=== PATIENT | male | born 1960 | race Caucasian/White ===

== ENCOUNTER 2018-10-20 13:48 | Emergency (ER) | payer MEDICAID, MEDICARE, OTHER ==
[~2018-10-20] VITALS: Ht 177.8 cm; Wt 90.3 kg
--- NOTE | 2018-10-20 14:21 | ED Neurological Problem ---
General Stated Complaint: AMS Source: patient, family, EMS Exam Limitations: clinical condition History of Present Illness Date Seen by Provider: Oct 20, 2018 Time Seen by Provider: 14:16 Initial Comments This 58-year-old white male presents with confusion following a probable seizure. The patient has a history of lifelong seizures following sustained high fevers from the [place] flu as a child. The patient and his relate that they believe he has been compliant on his seizure medication. They deny associated head injury, headache, stiff neck, photophobia, or fever. The patient has had multiple breakthrough seizures in the past. He is on phenobarbital and Dilantin. The is concerned because the patient is more ataxic than normal in his postictal state. Allergies and Home Medications Allergies Coded Allergies: bupropion (Verified Allergy, Severe, seizure, 10/20/18) acetaminophen (Verified Adverse Reaction, Severe, seizure, 10/20/18) escitalopram (Verified Adverse Reaction, Severe, seizure, 10/20/18) oxycodone (Verified Adverse Reaction, Severe, seizure, 10/20/18) tramadol (Verified Adverse Reaction, Severe, seizure, 10/20/18) Home Medications Diazepam 5 Mg/1 Ml Oral.conc, 5 MG PRN, (Reported) Phenobarbital 97.2 Mg Tablet, 97.2 MG BID, (Reported) Phenytoin Sodium Extended 100 Mg Capsule, 300 MG DAILY, (Reported) Phenytoin Sodium Extended 30 Mg Capsule, 30 MG DAILY, (Reported) Tiagabine HCl 12 Mg Tablet, 12 MG TID, (Reported) Patient Home Medication List Home Medication List Reviewed: Yes Review of Systems Review of Systems Constitutional: No chills, No dizziness; weakness Eyes: Denies Blurred Vision, Denies Photophobia Ears, Nose, Mouth, Throat: denies ear pain, denies epistaxis, denies mouth pain Respiratory: No cough, No short of breath Cardiovascular: No chest pain, No palpitations Gastrointestinal: No abdominal pain, No diarrhea, No nausea, No vomiting Genitourinary: No dysuria, No frequency Musculoskeletal: No back pain, No joint pain Skin: No rash Psychiatric/Neurological: See HPI, Tonic Clonic Seizures Endocrine: No Symptoms Reported Hematologic/Lymphatic: No Symptoms Reported Past Xspcnpd-Iqptdb-Dtxttk Hx Past Med/Social Hx: Reviewed Nursing Past Med/Soc Hx Patient Social History Recent Foreign Travel: No Contact w/Someone Who Travel: No Physical Exam Vital Signs Vital Signs - First Documented 10/20/18 13:49 Temp 98.3 Pulse 68 Resp 18 B/P (MAP) 116/70 (85) Pulse Ox 98 O2 Delivery Room Air Capillary Refill : Height, Weight, BMI Height: '" Weight: lbs. oz. kg; BMI Method: General Appearance: other (the patient appears postictal.) HEENT: normal ENT inspection Neck: normal inspection Respiratory: lungs clear Cardiovascular: regular rate, rhythm Gastrointestinal: normal bowel sounds, non tender, soft Back: normal inspection Neurologic/Psychiatric: no motor/sensory deficits, other (the patient is slow to respond but accurate. His eyes have a poorly fixed nystatin this. He has twitching of his eyelids and right hands suggestive of a postictal state.) Crainal Nerves: normal hearing, normal speech Motor/Sensory: no motor deficit, no sensory deficit Skin: warm/dry; No rash Progress/Results/Core Measures Results/Orders Lab Results Laboratory Tests Test 10/20/18 00:00 10/20/18 14:15 Range/Units White Blood Count 8.4 4.3-11.0 10^3/uL Red Blood Count 4.36 4.35-5.85 10^6/uL Hemoglobin 13.6 13.3-17.7 G/DL Hematocrit 41 40-54 % Mean Corpuscular Volume 94 80-99 FL Mean Corpuscular Hemoglobin 31 25-34 PG Mean Corpuscular Hemoglobin Concent 33 32-36 G/DL Red Cell Distribution Width 13.5 10.0-14.5 % Platelet Count 303 130-400 10^3/uL Mean Platelet Volume 10.0 7.4-10.4 FL Neutrophils (%) (Auto) 68 42-75 % Lymphocytes (%) (Auto) 19 12-44 % Monocytes (%) (Auto) 11 0-12 % Eosinophils (%) (Auto) 2 0-10 % Basophils (%) (Auto) 0 0-10 % Neutrophils # (Auto) 5.8 1.8-7.8 X 10^3 Lymphocytes # (Auto) 1.6 1.0-4.0 X 10^3 Monocytes # (Auto) 0.9 0.0-1.0 X 10^3 Eosinophils # (Auto) 0.2 0.0-0.3 10^3/uL Basophils # (Auto) 0.0 0.0-0.1 10^3/uL Urine Color YELLOW Urine Clarity CLEAR Urine pH 8.0 5-9 Urine Specific [place] 1.010 L 1.016-1.022 Urine Protein NEGATIVE NEGATIVE Urine Glucose (UA) NEGATIVE NEGATIVE Urine Ketones NEGATIVE NEGATIVE Urine Nitrite NEGATIVE NEGATIVE Urine Bilirubin NEGATIVE NEGATIVE Urine Urobilinogen 0.2 NORMAL MG/DL Urine Leukocyte Esterase NEGATIVE NEGATIVE Urine RBC (Auto) NEGATIVE NEGATIVE Urine RBC NONE /HPF Urine WBC NONE /HPF Urine Squamous Epithelial Cells RARE /HPF Urine Crystals NONE /LPF Urine Bacteria NONE /HPF Urine Casts NONE /LPF Urine Mucus NEGATIVE /LPF Urine Culture Indicated NO Sodium Level 141 135-145 MMOL/L Potassium Level 4.6 3.6-5.0 MMOL/L Chloride Level 105 98-107 MMOL/L Carbon Dioxide Level 32 21-32 MMOL/L Anion Gap 4 L 5-14 MMOL/L Blood Urea Nitrogen 10 7-18 MG/DL Creatinine 0.76 0.60-1.30 MG/DL Estimat Glomerular Filtration Rate > 60 BUN/Creatinine Ratio 13 Glucose Level 88 70-105 MG/DL Calcium Level 8.5 8.5-10.1 MG/DL Corrected Calcium 8.5 8.5-10.1 MG/DL Total Bilirubin 0.2 0.1-1.0 MG/DL Aspartate Amino Transf (AST/SGOT) 17 5-34 U/L Alanine Aminotransferase (ALT/SGPT) 12 0-55 U/L Alkaline Phosphatase 131 40-136 U/L Total Protein 7.4 6.4-8.2 GM/DL Albumin 4.0 3.2-4.5 GM/DL Urine Opiates Screen NEGATIVE NEGATIVE Urine Oxycodone Screen NEGATIVE NEGATIVE Urine Methadone Screen NEGATIVE NEGATIVE Urine Propoxyphene Screen NEGATIVE NEGATIVE Urine Barbiturates Screen POSITIVE H NEGATIVE Ur Tricyclic Antidepressants Screen NEGATIVE NEGATIVE Urine Phencyclidine Screen NEGATIVE NEGATIVE Urine Amphetamines Screen NEGATIVE NEGATIVE Urine Methamphetamines Screen NEGATIVE NEGATIVE Urine Benzodiazepines Screen NEGATIVE NEGATIVE Urine Cocaine Screen NEGATIVE NEGATIVE Urine Cannabinoids Screen NEGATIVE NEGATIVE My Orders Orders - ELISEO CARRILLO MD Ct Head Wo (10/20/18 14:12) Phenobarbital (10/20/18 14:12) Dilantin (Phenytoin) (10/20/18 14:12) Cbc With Automated Diff (10/20/18 14:12) Comprehensive Metabolic Panel (10/20/18 14:12) Ua Culture If Indicated (10/20/18 14:12) Drug Screen Stat (Urine) (10/20/18 14:12) Ekg Tracing (10/20/18 14:12) Chest 1 View Ap/Pa Only (10/20/18 14:12) Lorazepam Tablet (Ativan Tablet) (10/20/18 14:53) Vital Signs/I&O 10/20/18 13:49 Temp 98.3 Pulse 68 Resp 18 B/P (MAP) 116/70 (85) Pulse Ox 98 O2 Delivery Room Air Progress Progress Note : Time: 16:08 Progress Note The patient's evaluation demonstrated no acute changes on his CT of the head. The patient's chest x-ray failed to demonstrate evidence of an acute infiltrate. Patient's laboratory evaluation was unremarkable. The patient's phenobarbital and Dilantin level will not be back until tomorrow. The patient' s EKG demonstrated normal sinus rhythm without acute current of injury. The patient received a milligram of Ativan early in his evaluation emergency Department as a protective agent. The patient and his were agreeable to a half loading dose of phenobarbital at home (160 mg). I asked that the patient follow up closely with his primary care physician with a telephone call the office in the morning. I invited him to return to emergency department if any further problems or questions. Initial ECG Impression Date: Oct 20, 2018 Initial ECG Impression Time: 16:10 Departure Impression Primary Impression: Seizure Disposition: 01 HOME, SELF-CARE Condition: Improved Departure-Patient Inst. Decision time for Depature: 16:10 Referrals: DARVIN PASTRANA MD Patient Instructions: Epilepsy in Adults Add. Discharge Instructions: Take 160 mg of Dilantin tonight. Close follow-up with your doctor tomorrow. Return if any problems or questions. ELISEO CARRILLO MD Oct 20, 2018 14:21
[2018-10-20 14:34] LABS: HEMATOCRIT 41 % (40-54); HEMOGLOBIN 13.6 G/DL (13.3-17.7); MEAN CORPUSCULAR HEMOGLOBIN 31 PG (25-34); MEAN CORPUSCULAR HGB CONC 33 G/DL (32-36); MEAN CORPUSCULAR VOLUME 94 FL (80-99); NEUTROPHILS % (AUTO) 68 % (42-75); PLATELET COUNT 303 10^3/uL (130-400); RED CELL DISTRIBUTION WIDTH 13.5 % (10.0-14.5); WHITE BLOOD COUNT 8.4 10^3/uL (4.3-11.0)
[2018-10-20 14:35] LABS: BASOPHILS % (AUTO) 0 % (0-10); EOSINOPHILS # (AUTO) 0.2 10^3/uL (0.0-0.3); EOSINOPHILS % (AUTO) 2 % (0-10); LYMPHOCYTES # (AUTO) 1.6 X 10^3 (1.0-4.0); LYMPHOCYTES % (AUTO) 19 % (12-44); MONOCYTES # (AUTO) 0.9 X 10^3 (0.0-1.0); MONOCYTES % (AUTO) 11 % (0-12); NEUTROPHILS # (AUTO) 5.8 X 10^3 (1.8-7.8)
[2018-10-20] MEDS ORDERED: LORazepam 0.5 MG (ATIVAN) TABLET PO STA (14:53)
[2018-10-20 14:57] LABS: BUN/CREATININE RATIO 13; CARBON DIOXIDE 32 MMOL/L (21-32); CHLORIDE 105 MMOL/L (98-107); CREATININE SERUM 0.76 MG/DL (0.60-1.30); GFR ESTIMATED > 60; GLUCOSE 88 MG/DL (70-105); POTASSIUM 4.6 MMOL/L (3.6-5.0); SODIUM 141 MMOL/L (135-145)
[2018-10-20 14:58] LABS: ALANINE AMINOTRANSFERASE 12 U/L (0-55); ALKALINE PHOSPHATASE 131 U/L (40-136); BILIRUBIN,TOTAL 0.2 MG/DL (0.1-1.0); CALCIUM 8.5 MG/DL (8.5-10.1); TOTAL PROTEIN 7.4 GM/DL (6.4-8.2)
--- NOTE | 2018-10-20 14:58 | Diagnostic Imaging Report ---
PROCEDURE: CT head without contrast. TECHNIQUE: Multiple contiguous axial images were obtained through the brain without the use of intravenous contrast. INDICATION: Seizure. COMPARISON: There are no prior studies available for comparison. FINDINGS: There is no mass, shift of the midline, or hemorrhage to suggest an acute intracranial abnormality. The ventricles are not abnormally dilated. There is mild cortical atrophy. The degree of atrophy is consistent with the patient's age; however, there does seem to be pronounced atrophy of both cerebellar hemispheres. This finding is of uncertain etiology. The bone windows show no sign of a fracture or of a destructive lesion. The orbits and sinuses were not visualized in their entirety. Where visualized, there is no acute abnormality. IMPRESSION: 1. There is no evidence for an acute intracranial abnormality. If clinical concern regarding an underlying abnormality persists, then MRI would be recommended for further study. 2. There does appear to be cerebellar atrophy disproportionate to the cortical atrophy. The reason for this discrepancy is not certain. 3. These results were discussed with Dr. Cho in the ER. Dictated by: Dictated on workstation # [id number]
--- NOTE | 2018-10-20 15:10 | Diagnostic Imaging Report ---
EXAMINATION: Chest one view at 02:34 p.m. INDICATION: Seizure. FINDINGS: There are no prior studies available for comparison. The heart size is within normal limits. The lungs are generally clear. There is no evidence for failure, pneumonia, or for a pleural effusion. The mediastinum is not widened. The osseous structures are intact. Healed slightly displaced fractures of the right fifth, sixth, and seventh ribs are evident. IMPRESSION: There is no evidence for an acute cardiopulmonary abnormality. Dictated by: Dictated on workstation # [id number]
[2018-10-20 15:50] LABS: BILIRUBIN,URINE NEGATIVE (NEGATIVE); CLARITY,URINE CLEAR; COLOR,URINE YELLOW; GLUCOSE, URINE (UA) NEGATIVE (NEGATIVE); KETONES,URINE NEGATIVE (NEGATIVE); LEUKOCYTE ESTERASE ,URINE NEGATIVE (NEGATIVE); NITRITE,URINE NEGATIVE (NEGATIVE); PROTEIN,URINE NEGATIVE (NEGATIVE); SQUAMOUS EPITHELIAL CELL,UR RARE /HPF; UROBILINOGEN,URINE 0.2 MG/DL (NORMAL)
[2018-10-20] MEDS ORDERED: [UNRECOGNIZED DRUG - CODE] (15:51)
[2018-10-20] MEDS ORDERED: DIAZ5ORA (15:51)
[2018-10-20] MEDS ORDERED: PHEN100C4 (15:51)
[2018-10-20] MEDS ORDERED: PHEN30CA (15:51)
[2018-10-20] MEDS ORDERED: PHEN97.2 (15:51)
[2018-10-20 16:00] LABS: BENZODIAZEPINES SCREEN URINE NEGATIVE (NEGATIVE); COCAINE SCREEN URINE NEGATIVE (NEGATIVE); METHAMPHETAMINE SCREEN URINE S NEGATIVE (NEGATIVE)
[2018-10-20 16:01] LABS: AMPHETAMINE SCREEN, URINE NEGATIVE (NEGATIVE); BARBITURATE SCREEN URINE POSITIVE (NEGATIVE); CANNABINOID SCREEN, URINE NEGATIVE (NEGATIVE); OPIATE SCREEN URINE NEGATIVE (NEGATIVE); TRICYCLIC ANTIDEPRESSANTS SCRE NEGATIVE (NEGATIVE)
[2018-10-20 16:02] LABS: METHADONE STAT NEGATIVE (NEGATIVE); OXYCODONE STAT NEGATIVE (NEGATIVE); PROPOXYPHENE STAT NEGATIVE (NEGATIVE)
[2018-10-20 16:55] VITALS: BP 114/75
== END 2018-10-20 17:00 | disposition home or self-care (01) ==
LOC: ER FS 13:51
DX: R56.9 Unspecified convulsions (principal); Z88.8 Allergy status to other drugs, medicaments and biological substances; Z88.5 Allergy status to narcotic agent; Z88.6 Allergy status to analgesic agent
CPT/HCPCS: 36415; 70450; 71045; 80053; 80184; 80185; 80306; 81000; 85025; 93005

== ENCOUNTER 2018-10-29 11:31 | Emergency (ER) | payer MEDICARE, MEDICAID ==
[~2018-10-29] VITALS: Ht 182.9 cm; Wt 90.7 kg
[~2018-10-29 11:31] MED LIST: DIAZ5ORA; PHEN100C4; PHEN30CA; PHEN97.2; [UNRECOGNIZED DRUG - CODE]
[2018-10-29] MEDS ORDERED: LORazepam INJ 2 MG/ML (ATIVAN) VIAL ONE (11:42)
[2018-10-29] MEDS ORDERED: NS IV 1000 ML 1,000 ML IV SCH (12:00)
--- NOTE | 2018-10-29 12:35 | Diagnostic Imaging Report ---
INDICATION: Fever and chills. TIME OF EXAM: 12:23 p.m. Correlation is made with prior study from 10/20/2018. The heart size is normal. There is some mild density in the left base partially obscuring the left heart border, suspicious for infiltrate. Right lung is clear. No effusion or pneumothorax is seen. IMPRESSION: Findings suspicious for patchy left basilar pneumonia. Dictated by: Dictated on workstation # [id number]
[2018-10-29] MEDS ORDERED: cefTRIAXone FOR IV USE 1,000 MG in WATER (STERILE) FOR INJECTION 10 ML IV ONE (13:15)
--- NOTE | 2018-10-29 13:15 | ED General ---
General Chief Complaint: Neurological Problems Stated Complaint: SEIZURE Nursing Triage Note: Per patient's , patient has had a low grade temperature since last night, states patient has had a cough for approx 1 week. States patient got up this morning, then took his seizure meds. At approx. 1100, patient had a grand-mal seizure lasting approx 2 minutes. Patient has a history of seizures, most recently 1 week ago. Nursing Sepsis Screen: Possible Severe Sepsis Risk History of Present Illness Date Seen by Provider: Oct 29, 2018 Time Seen by Provider: 11:35 Initial Comments Patient is a 58-year-old male who is brought to the emergency department today by ambulance for evaluation after he had a seizure at home. The patient has a lifelong history of seizures. He takes Dilantin and phenobarbital and has been medication compliant. Available history is gathered from his family member who is the bedside because the patient is postictal. She states earlier today he had some tonic-clonic activity which seemed very typical for his seizures. She reports that he normally has about 2 seizures per year when he is on his medications and they're typically precipitated by some secondary illness. Last episode was last month. He did stay in the hospital overnight and was treated for pneumonia. He was evaluated yesterday by his primary care doctor and had levels of his medications drawn at that time but these have not resulted yet. He has had no recent fever or chills but he is noted to have some persistent cough that sometimes seems wet. He underwent chest x-ray a week ago and there were no acute findings at that time. Allergies and Home Medications Allergies Coded Allergies: bupropion (Verified Allergy, Severe, seizure, 10/20/18) acetaminophen (Verified Adverse Reaction, Severe, seizure, 10/20/18) escitalopram (Verified Adverse Reaction, Severe, seizure, 10/20/18) oxycodone (Verified Adverse Reaction, Severe, seizure, 10/20/18) tramadol (Verified Adverse Reaction, Severe, seizure, 10/20/18) Home Medications Azithromycin 250 Mg Tablet, 250 MG PO DAILY Prescribed by: ANDREEA MANUEL on 10/29/18 1344 Diazepam 5 Mg/1 Ml Oral.conc, 5 MG PRN, (Reported) Diazepam 2.5 Mg Kit, 5 MG RC UD PRN for SEIZURE ACTIVITY Prescribed by: ANDREEA MANUEL on 10/29/18 1344 Phenobarbital 97.2 Mg Tablet, 97.2 MG BID, (Reported) Phenytoin Sodium Extended 100 Mg Capsule, 300 MG DAILY, (Reported) Phenytoin Sodium Extended 30 Mg Capsule, 30 MG DAILY, (Reported) Tiagabine HCl 12 Mg Tablet, 12 MG TID, (Reported) Patient Home Medication List Home Medication List Reviewed: Yes Review of Systems Review of Systems Constitutional: no symptoms reported EENTM: see HPI, no symptoms reported Respiratory: cough Cardiovascular: no symptoms reported Genitourinary: no symptoms reported Musculoskeletal: no symptoms reported Skin: no symptoms reported Psychiatric/Neurological: Seizure Past Miokwve-Gccqti-Fyqnbj Hx Patient Social History 2nd Hand Smoke Exposure: No Recent Foreign Travel: No Contact w/Someone Who Travel: No Recent Infectious Disease Expo: No Recent Hopitalizations: No Seasonal Allergies Seasonal Allergies: No Past Medical History Surgeries: No Respiratory: Yes ( influenza ) Neurological: Yes Seizure Disorder Genitourinary: No Gastrointestinal: No Musculoskeletal: No Endocrine: No HEENT: No Cancer: No Psychosocial: No Integumentary: No Blood Disorders: No Physical Exam Vital Signs Vital Signs - First Documented 10/29/18 11:40 Temp 99.2 Pulse 115 Resp 17 B/P (MAP) 145/85 (105) Pulse Ox 94 O2 Delivery Room Air Capillary Refill : Less Than 3 Seconds Height, Weight, BMI Height: 6'10.00" Weight: 200lbs. oz. 90.741332mg; BMI Method:Estimated General Appearance: No Apparent Distress, WD/WN HEENT: PERRL/EOMI, TMs Normal, Normal ENT Inspection, Pharynx Normal Neck: Full Range of Motion Respiratory: Chest Non Tender, Lungs Clear Cardiovascular: Regular Rate, Rhythm, Tachycardia Gastrointestinal: Non Tender, Soft Extremity: Normal Capillary Refill, Normal Inspection, Normal Range of Motion Neurologic/Psychiatric: Other (post-ictal during the examination) Progress/Results/Core Measures Suspected Sepsis Recent Fever Within 48 Hours: Yes Infection Criteria Present: Suspected New Infection New/Unexplained Altered Menta: Yes Sepsis Screen: Possible Severe Sepsis Risk SIRS Temperature:99.2 Pulse: 115 Respiratory Rate: 17 Laboratory Tests 10/29/18 12:30: White Blood Count 16.9H Blood Pressure 145 /85 Mean: 105 Laboratory Tests 10/29/18 12:30: Creatinine 0.80, Platelet Count 313 Results/Orders Lab Results Laboratory Tests Test 10/29/18 12:15 3/8/19 12:30 Range/Units Urine Color YELLOW Urine Clarity CLEAR Urine pH 8.0 5-9 Urine Specific [place] 1.015 L 1.016-1.022 Urine Protein NEGATIVE NEGATIVE Urine Glucose (UA) NEGATIVE NEGATIVE Urine Ketones NEGATIVE NEGATIVE Urine Nitrite NEGATIVE NEGATIVE Urine Bilirubin NEGATIVE NEGATIVE Urine Urobilinogen NORMAL NORMAL MG/DL Urine Leukocyte Esterase NEGATIVE NEGATIVE Urine RBC (Auto) NEGATIVE NEGATIVE Urine RBC NONE /HPF Urine WBC RARE /HPF Urine Squamous Epithelial Cells RARE /HPF Urine Crystals NONE /LPF Urine Bacteria TRACE /HPF Urine Casts NONE /LPF Urine Mucus SMALL H /LPF Urine Culture Indicated NO White Blood Count 16.9 H 4.3-11.0 10^3/uL Red Blood Count 4.09 L 4.35-5.85 10^6/uL Hemoglobin 12.9 L 13.3-17.7 G/DL Hematocrit 39 L 40-54 % Mean Corpuscular Volume 96 80-99 FL Mean Corpuscular Hemoglobin 32 25-34 PG Mean Corpuscular Hemoglobin Concent 33 32-36 G/DL Red Cell Distribution Width 13.5 10.0-14.5 % Platelet Count 313 130-400 10^3/uL Mean Platelet Volume 9.7 7.4-10.4 FL Neutrophils (%) (Auto) 87 H 42-75 % Lymphocytes (%) (Auto) 5 L 12-44 % Monocytes (%) (Auto) 7 0-12 % Eosinophils (%) (Auto) 0 0-10 % Basophils (%) (Auto) 0 0-10 % Neutrophils # (Auto) 14.7 H 1.8-7.8 X 10^3 Lymphocytes # (Auto) 0.9 L 1.0-4.0 X 10^3 Monocytes # (Auto) 1.2 H 0.0-1.0 X 10^3 Eosinophils # (Auto) 0.0 0.0-0.3 10^3/uL Basophils # (Auto) 0.0 0.0-0.1 10^3/uL Neutrophils % (Manual) 87 % Lymphocytes % (Manual) 4 % Monocytes % (Manual) 7 % Band Neutrophils 2 % Sodium Level 137 135-145 MMOL/L Potassium Level 4.4 3.6-5.0 MMOL/L Chloride Level 101 98-107 MMOL/L Carbon Dioxide Level 13 L 21-32 MMOL/L Anion Gap 23 H 5-14 MMOL/L Blood Urea Nitrogen 14 7-18 MG/DL Creatinine 0.80 0.60-1.30 MG/DL Estimat Glomerular Filtration Rate > 60 BUN/Creatinine Ratio 18 Glucose Level 105 70-105 MG/DL Calcium Level 8.6 8.5-10.1 MG/DL Magnesium Level 1.9 1.8-2.4 MG/DL Micro Results Microbiology 10/29/18 Influenza Types A,B Antigen (OMER) - Final, Complete My Orders Orders - ANDREEA MANUEL DO Lorazepam Injection (Ativan Injection) (10/29/18 11:42) Saline Lock/Iv-Start (10/29/18 11:54) Cbc And Manual Diff (10/29/18 11:54) Basic Metabolic Panel (10/29/18 11:54) Magnesium (10/29/18 11:54) Influenza A And B Antigens (10/29/18 11:54) Ns Iv 1000 Ml (Sodium Chloride 0.9%) (10/29/18 12:00) Chest 1 View Ap/Pa Only (10/29/18 12:02) Urinalysis (10/29/18 12:02) Ceftriaxone For Iv Use (Rocephin For I (10/29/18 13:15) Azithromycin Tablet (Zithromax Tablet) (10/29/18 13:45) Ketorolac Injection (Toradol Injection) (10/29/18 14:15) Medications Given in ED Current Medications Medications Dose Ordered Sig/Jm Route Start Time Stop Time Status Last Admin Dose Admin Azithromycin 500 mg ONCE ONCE PO 10/29/18 13:45 10/29/18 13:46 DC 10/29/18 14:42 500 MG Ceftriaxone Sodium 1000 mg/ Sterile Water 10 ml @ 200 mls/hr ONCE ONCE IV 10/29/18 13:15 10/29/18 13:17 DC 10/29/18 13:41 200 MLS/HR Ketorolac Tromethamine 30 mg ONCE ONCE IVP 10/29/18 14:15 10/29/18 14:16 DC 10/29/18 14:42 30 MG Lorazepam 2 mg STK-MED ONCE .ROUTE 10/29/18 11:42 10/29/18 11:43 DC 10/29/18 11:40 1 MG Vital Signs/I&O 3/8/19 11:40 Temp 99.2 Pulse 115 Resp 17 B/P (MAP) 145/85 (105) Pulse Ox 94 O2 Delivery Room Air Capillary Refill : Less Than 3 Seconds Blood Pressure Mean: 105 Progress Note : Time: 11:35 Progress Note Patient is seen and examined immediately on arrival to the ER. Shortly after arrival, he does begin to have some mild facial twitching around the eyes. According to his family member, this is consistent with his seizure activity at home although he does also have full tonic-clonic movements at times. Patient is currently postictal. He is protecting his airway and has normal vital signs except for mild tachycardia. He does not answer questions but he does open his eyes to verbal stimuli. He is given 1 mg of Ativan in the ER. We'll repeat chest x-ray to screen for fluids along with basic labs. We'll not repeat therapeutic drug levels today because the results will not return today and these tests were already collected yesterday by PCP and are pending. 13:00: Chest x-ray is completed. Patient has findings suspicious for left sided pneumonia. This is new when compared to x-ray completed a week earlier. He did not have a fever in the ER but did have subjective fever at home of over 100 axillary. Today, he is noted to have some leukocytosis. It is unclear if this is secondary to his infection or degranulation following seizure activity. Clinically, the patient does not appear toxic. He is dehydrated with an elevated anion gap. His heart rate was mildly tachycardic on arrival but is responsive to IV fluids. Plan is to complete IV fluids in the ER and they are running slowly due to a small and tenuous IV access. The patient is difficult in this regard. He is given 1 g of Rocephin in the ER. 30 mg of Toradol for comfort and fever, and will be given the first dose of azithromycin. Anticipation is for discharge to home following these interventions with completion of Z-Henry. Levaquin is another consideration for this patient but he is a poor candidate for this medication due to his seizure history. Diagnostic Imaging Diagonstic Imaging: Xray Plain Films/CT/US/NM/MRI: chest Comments INDICATION: Fever and chills. TIME OF EXAM: 12:23 p.m. Correlation is made with prior study from 10/20/2018. The heart size is normal. There is some mild density in the left base partially obscuring the left heart border, suspicious for infiltrate. Right lung is clear. No effusion or pneumothorax is seen. IMPRESSION: Findings suspicious for patchy left basilar pneumonia. Reviewed: Reviewed by Me Departure Impression Primary Impression: Pneumonia Disposition: 01 HOME, SELF-CARE Condition: Improved Departure-Patient Inst. Referrals: DARVIN PASTRANA MD (PCP/Family) Primary Care Physician Scripts Diazepam (Diastat) 2.5 Mg Kit 5 MG RC UD PRN for SEIZURE ACTIVITY, #1 KIT 2 Refills Prov: ANDREEA MANUEL DO 10/29/18 Azithromycin (Azithromycin) 250 Mg Tablet 250 MG PO DAILY, #4 TAB 0 Refills Prov: ANDREEA MANUEL DO 10/29/18 ANDREEA MANUEL DO Oct 29, 2018 13:15
[2018-10-29 13:18] LABS: HEMATOCRIT 39 % (40-54); HEMOGLOBIN 12.9 G/DL (13.3-17.7); MEAN CORPUSCULAR HEMOGLOBIN 32 PG (25-34); MEAN CORPUSCULAR HGB CONC 33 G/DL (32-36); MEAN CORPUSCULAR VOLUME 96 FL (80-99); WHITE BLOOD COUNT 16.9 10^3/uL (4.3-11.0)
[2018-10-29 13:19] LABS: BASOPHILS % (AUTO) 0 % (0-10); EOSINOPHILS % (AUTO) 0 % (0-10); LYMPHOCYTES # (AUTO) 0.9 X 10^3 (1.0-4.0); LYMPHOCYTES % (AUTO) 5 % (12-44); MEAN PLATELET VOLUME 9.7 FL (7.4-10.4); MONOCYTES # (AUTO) 1.2 X 10^3 (0.0-1.0); MONOCYTES % (AUTO) 7 % (0-12); NEUTROPHILS # (AUTO) 14.7 X 10^3 (1.8-7.8); NEUTROPHILS % (AUTO) 87 % (42-75); PLATELET COUNT 313 10^3/uL (130-400); RED CELL DISTRIBUTION WIDTH 13.5 % (10.0-14.5)
[2018-10-29 13:20] LABS: BAND NEUTROPHILS 2 %; LYMPHOCYTES % (MANUAL) 4 %; MONOCYTES % (MANUAL) 7 %; NEUTROPHILS % (MANUAL) 87 %
[2018-10-29 13:25] LABS: CLARITY,URINE CLEAR; COLOR,URINE YELLOW
[2018-10-29 13:26] LABS: BILIRUBIN,URINE NEGATIVE (NEGATIVE); GLUCOSE, URINE (UA) NEGATIVE (NEGATIVE); KETONES,URINE NEGATIVE (NEGATIVE); LEUKOCYTE ESTERASE ,URINE NEGATIVE (NEGATIVE); NITRITE,URINE NEGATIVE (NEGATIVE); PROTEIN,URINE NEGATIVE (NEGATIVE); UROBILINOGEN,URINE NORMAL (NORMAL)
[2018-10-29 13:31] LABS: CARBON DIOXIDE 13 MMOL/L (21-32); CHLORIDE 101 MMOL/L (98-107); POTASSIUM 4.4 MMOL/L (3.6-5.0); SODIUM 137 MMOL/L (135-145)
[2018-10-29 13:32] LABS: BUN/CREATININE RATIO 18; CALCIUM 8.6 MG/DL (8.5-10.1); GFR ESTIMATED > 60; GLUCOSE 105 MG/DL (70-105); MAGNESIUM 1.9 MG/DL (1.8-2.4)
[2018-10-29 13:32] LABS: BACTERIA,URINE TRACE /HPF; WBC,URINE RARE /HPF
[2018-10-29 13:33] LABS: SQUAMOUS EPITHELIAL CELL,UR RARE /HPF
[2018-10-29] MEDS ORDERED: AZIT250T12 PO (13:44)
[2018-10-29] MEDS ORDERED: DIAZ2.5K RC (13:44)
[2018-10-29] MEDS ORDERED: AZITHROMYCIN 250 MG TAB (ZITHROMAX) PO ONE (13:45)
[2018-10-29] MEDS ORDERED: KETOROLAC 30 MG/ML VIAL IVP ONE (14:15)
[2018-10-29 15:20] VITALS: BP 116/72
[2018-10-29 18:54] LABS: BASOPHILS % (MANUAL) 0 %; EOSINOPHILS % (MANUAL) 0 %
== END 2018-10-29 15:20 | disposition home or self-care (01) ==
LOC: EDUNIT# 11:31 → ER FS 11:33
DX: J18.9 Pneumonia, unspecified organism (principal); G40.909 Epilepsy, unspecified, not intractable, without status epilepticus; Z88.5 Allergy status to narcotic agent; Z88.6 Allergy status to analgesic agent; Z88.8 Allergy status to other drugs, medicaments and biological substances
CPT/HCPCS: 36415; 71045; 80048; 81000; 83735; 85007; 85027; 87804

== ENCOUNTER → 2018-11-02 | Outpatient (CLI) | payer MEDICARE, MEDICAID ==
[~2018-11-02] MED LIST changes: +AZIT250T12 PO; +DIAZ2.5K RC
--- NOTE | 2018-11-02 14:10 | Diagnostic Imaging Report ---
INDICATION: Pneumonia. TIME OF EXAM: 01:42 p.m. Correlation is made with prior chest from 10/29/2018. FINDINGS: The heart size is stable. There has been some improved aeration to the left base. There may be minimal residual infiltrate present. The right lung is clear. No effusion or pneumothorax is seen. IMPRESSION: Improved aeration to the left base when compared with exam from four days earlier. Dictated by: Dictated on workstation # [id number]
== END ==
LOC: LAB FS 13:54
PROVIDERS: ATTEND Family Medicine
DX: J14 Pneumonia due to Hemophilus influenzae (principal)
CPT/HCPCS: 71046

== ENCOUNTER 2019-03-02 20:57 | Outpatient (CLI) | payer MEDICARE, MEDICAID | END 2019-03-03 07:32 | disposition home or self-care (01) | LOC: SLEEP 20:57 | PROVIDERS: ATTEND Psychiatry & Neurology Neurology | DX: G47.33 Obstructive sleep apnea (adult) (pediatric) (principal) | CPT/HCPCS: 95810 ==

== ENCOUNTER 2019-03-28 20:52 | Outpatient (CLI) | payer MEDICARE, MEDICAID | END 2019-03-29 07:05 | disposition home or self-care (01) | LOC: SLEEP 20:52 | PROVIDERS: ATTEND Psychiatry & Neurology Neurology | DX: G47.33 Obstructive sleep apnea (adult) (pediatric) (principal) | CPT/HCPCS: 95811 ==

== ENCOUNTER 2019-06-28 09:54 | Inpatient (IN) | payer MEDICARE, MEDICAID ==
[2019-06-28] VITALS (11 sets, daily range): BP systolic 98–137; BP diastolic 63–103
[~2019-06-28] VITALS: Ht 177 cm; Wt 97.7 kg
[~2019-06-28 09:54] MED LIST changes: -DIAZ5ORA; +DIAZ5ORA PO
[2019-06-28] MEDS ORDERED: NS IV 1000 ML 1,000 ML IV SCH (10:30)
--- NOTE | 2019-06-28 10:31 | ED General ---
General Stated Complaint: SEIZURE Source of Information: EMS History of Present Illness Date Seen by Provider: Jun 28, 2019 Time Seen by Provider: 09:56 Initial Comments 59-year-old male presenting by EMS from home. He has a long-standing history of seizures and according to EMS his reports that in last 3 days he has had cough and shortness of breath. He has had increased seizure activity as well. Today he was having more seizures and less responsiveness. When EMS arrived on scene and he was having focal right sided upper extremity seizure activity which progressed into a generalized tonic-clonic seizure. He was given 1 mg of Ativan which helped to control his seizure activity. He has decreased responsiveness on arrival to the emergency department but no noted seizure activity. He has decreased breath sounds with some rhonchi and crackles in the bases. He does have a history of recurrent pneumonia as well. Allergies and Home Medications Allergies Coded Allergies: bupropion (Verified Allergy, Severe, seizure, 10/20/18) acetaminophen (Verified Adverse Reaction, Severe, seizure, 10/20/18) escitalopram (Verified Adverse Reaction, Severe, seizure, 10/20/18) oxycodone (Verified Adverse Reaction, Severe, seizure, 10/20/18) tramadol (Verified Adverse Reaction, Severe, seizure, 10/20/18) Home Medications Azithromycin 250 Mg Tablet, 250 MG PO DAILY Prescribed by: ANDREEA MANUEL on 10/29/18 1344 Diazepam 5 Mg/1 Ml Oral.conc, 5 MG PRN, (Reported) Diazepam 2.5 Mg Kit, 5 MG RC UD PRN for SEIZURE ACTIVITY Prescribed by: ANDREEA MANUEL on 10/29/18 1344 Phenobarbital 97.2 Mg Tablet, 97.2 MG BID, (Reported) Phenytoin Sodium Extended 100 Mg Capsule, 300 MG DAILY, (Reported) Phenytoin Sodium Extended 30 Mg Capsule, 30 MG DAILY, (Reported) Tiagabine HCl 12 Mg Tablet, 12 MG TID, (Reported) Patient Home Medication List Home Medication List Reviewed: Yes Review of Systems Review of Systems Constitutional: chills, fever, malaise EENTM: no symptoms reported Respiratory: cough, short of breath Cardiovascular: no symptoms reported Gastrointestinal: no symptoms reported Genitourinary: no symptoms reported Musculoskeletal: no symptoms reported Skin: no symptoms reported Psychiatric/Neurological: Seizure ROS from EMS Past Xhedvgs-Zasixc-Cfhtsp Hx Past Med/Social Hx: Reviewed Nursing Past Med/Soc Hx Patient Social History 2nd Hand Smoke Exposure: No Recent Foreign Travel: Yes Recent Hopitalizations: No Seasonal Allergies Seasonal Allergies: No Past Medical History Surgeries: No Respiratory: Yes ( influenza ) Cardiac: No Neurological: Yes Seizure Disorder Genitourinary: No Gastrointestinal: No Musculoskeletal: No Endocrine: No HEENT: No Cancer: No Psychosocial: No Integumentary: No Blood Disorders: No Physical Exam Vital Signs Vital Signs - First Documented 06/28/19 06/28/19 10:00 13:16 Temp 37.7 Pulse 119 Resp 18 B/P (MAP) 157/89 (111) Pulse Ox 20 O2 Delivery Room Air O2 Flow Rate 2.00 Capillary Refill : Height, Weight, BMI Height: 6'10.00" Weight: 200lbs. oz. 90.626708ev; BMI Method:Estimated General Appearance: No Apparent Distress, WD/WN Eyes: Bilateral Eye PERRL HEENT: Pharynx Normal (no laceration to tongue or bite elliott noted) Neck: Full Range of Motion, Supple Respiratory: Chest Non Tender, No Accessory Muscle Use, No Respiratory Distress, Decreased Breath Sounds, Rales (in bases), Rhonci (in bases) Cardiovascular: Regular Rate, Rhythm, No Edema, Normal Peripheral Pulses Gastrointestinal: Normal Bowel Sounds, Non Tender, Soft Rectal: Deferred Extremity: Normal Capillary Refill, No Pedal Edema Neurologic/Psychiatric: Other (opens eyes to voice, localizes to pain, no verbal response) Skin: Normal Color, Warm/Dry Focused Exam Lactate Level 06/28/19 10:15: Lactic Acid Level 0.98 Lactic Acid Level Progress/Results/Core Measures Suspected Sepsis SIRS Temperature: Pulse: Respiratory Rate: Laboratory Tests 06/28/19 10:15: White Blood Count 17.7H Blood Pressure / Mean: 06/28/19 10:15: Lactic Acid Level 0.98 Laboratory Tests 06/28/19 10:15: Creatinine 0.79, Platelet Count 376, Total Bilirubin 0.2 Results/Orders Lab Results Laboratory Tests Test 06/28/19 10:15 06/28/19 10:35 Range/Units White Blood Count 17.7 H 4.3-11.0 10^3/uL Red Blood Count 4.06 L 4.35-5.85 10^6/uL Hemoglobin 12.9 L 13.3-17.7 G/DL Hematocrit 38 L 40-54 % Mean Corpuscular Volume 94 80-99 FL Mean Corpuscular Hemoglobin 32 25-34 PG Mean Corpuscular Hemoglobin Concent 34 32-36 G/DL Red Cell Distribution Width 14.1 10.0-14.5 % Platelet Count 376 130-400 10^3/uL Mean Platelet Volume 9.8 7.4-10.4 FL Neutrophils (%) (Auto) 83 H 42-75 % Lymphocytes (%) (Auto) 8 L 12-44 % Monocytes (%) (Auto) 9 0-12 % Eosinophils (%) (Auto) 0 0-10 % Basophils (%) (Auto) 0 0-10 % Neutrophils # (Auto) 14.6 H 1.8-7.8 X 10^3 Lymphocytes # (Auto) 1.4 1.0-4.0 X 10^3 Monocytes # (Auto) 1.5 H 0.0-1.0 X 10^3 Eosinophils # (Auto) 0.0 0.0-0.3 10^3/uL Basophils # (Auto) 0.0 0.0-0.1 10^3/uL Neutrophils % (Manual) 88 % Lymphocytes % (Manual) 6 % Monocytes % (Manual) 5 % Eosinophils % (Manual) 0 % Basophils % (Manual) 0 % Band Neutrophils 1 % Blood Morphology Comment NORMAL Blood Gas Puncture Site RT RAD Blood Gas Patient Temperature 37.7 Arterial Blood pH 7.41 7.37-7.43 Arterial Blood Partial Pressure CO2 43 35-45 MMHG Arterial Blood Partial Pressure O2 68 L 79-93 MMHG Arterial Blood HCO3 27 23-27 MMOL/L Arterial Blood Total CO2 28.6 21.0-31.0 MMOL/L Arterial Blood Oxygen Saturation 93 L 94-100 % Arterial Blood Base Excess 2.3 -2.5-2.5 MMOL/L Alfie Test YES-POS Blood Gas Ventilator Setting NO Blood Gas Inspired Oxygen ROOM AIR Sodium Level 136 135-145 MMOL/L Potassium Level 4.1 3.6-5.0 MMOL/L Chloride Level 101 98-107 MMOL/L Carbon Dioxide Level 23 21-32 MMOL/L Anion Gap 12 5-14 MMOL/L Blood Urea Nitrogen 8 7-18 MG/DL Creatinine 0.79 0.60-1.30 MG/DL Estimat Glomerular Filtration Rate > 60 BUN/Creatinine Ratio 10 Glucose Level 130 H 70-105 MG/DL Lactic Acid Level 0.98 0.50-2.00 MMOL/L Calcium Level 8.5 8.5-10.1 MG/DL Corrected Calcium 8.6 8.5-10.1 MG/DL Total Bilirubin 0.2 0.1-1.0 MG/DL Aspartate Amino Transf (AST/SGOT) 15 5-34 U/L Alanine Aminotransferase (ALT/SGPT) 9 0-55 U/L Alkaline Phosphatase 127 40-136 U/L Total Protein 7.5 6.4-8.2 GM/DL Albumin 3.9 3.2-4.5 GM/DL Urine Color YELLOW Urine Clarity CLEAR Urine pH 8.5 5-9 Urine Specific [place] 1.010 L 1.016-1.022 Urine Protein NEGATIVE NEGATIVE Urine Glucose (UA) NEGATIVE NEGATIVE Urine Ketones NEGATIVE NEGATIVE Urine Nitrite NEGATIVE NEGATIVE Urine Bilirubin NEGATIVE NEGATIVE Urine Urobilinogen 0.2 NORMAL MG/DL Urine Leukocyte Esterase NEGATIVE NEGATIVE Urine RBC (Auto) NEGATIVE NEGATIVE Urine RBC RARE /HPF Urine WBC NONE /HPF Urine Squamous Epithelial Cells RARE /HPF Urine Crystals NONE /LPF Urine Bacteria NONE /HPF Urine Casts NONE /LPF Urine Mucus NEGATIVE /LPF Urine Culture Indicated NO My Orders Orders - YARITZA ANGEL MD Cbc With Automated Diff (06/28/19 10:20) Comprehensive Metabolic Panel (06/28/19 10:20) Blood Culture (06/28/19 10:20) Ua Culture If Indicated (06/28/19 10:20) Chest 1 View Ap/Pa Only (06/28/19 10:20) Ed Iv/Invasive Line Start (06/28/19 10:20) Lactic Acid Analyzer (06/28/19 10:20) Ct Head Wo (06/28/19 10:21) Arterial Blood Gas (06/28/19 10:21) Galdamez Cath (06/28/19 10:21) Ns Iv 1000 Ml (Sodium Chloride 0.9%) (06/28/19 10:30) Oxygen-Administer (06/28/19 10:23) Manual Differential (06/28/19 10:15) Piperacillin Sodium/Tazobactam (Zosyn Vi (06/28/19 12:06) Vital Signs/I&O 11/01/0906/28/19 06/28/19 10:00 13:16 14:28 Temp 37.7 37.2 Pulse 119 74 Resp 18 18 B/P (MAP) 157/89 (111) 128/79 Pulse Ox 20 97 98 O2 Delivery Room Air Nasal Cannula Room Air O2 Flow Rate 2.00 Capillary Refill : Progress Note #1: Progress Note obtain labs, CXR to look for pneumonia, CT head to look for acute changes, Urine to look for signs of infection or dehydration, ABG to assess his oxygenation and acid base status. Will check blood cultures and lactic acid for possible infection since there is concern for possible pneumonia. unable to obtain IV a ccess other than one in the right foot for now and had to use arterial stick to get blood for lab and cultures. Progress Note #2: Progress Note Labs show elevated white blood cell count with a left shift. The chemistry is stable. The urine did not demonstrate infection. The lactic acid was normal at 0.98. The blood gas showed a pH is 7.41 and normal PCO2 and mild drop in PO2 of 63. This was on room air. His chest x-ray did demonstrate a left lower lobe infiltrate. His CT head did not show any acute abnormality and was consistent with prior imaging. Counseled family about results. Patient was still fairly somnolent from recent seizures as well as benzodiazepines for his seizure activity. Will start him on antibiotics. Discussed with Dr. Brooks about the patient and admission. She requested to start him on Zosyn with his recurrent infections and increased risk for aspiration with his seizure activity. Will also consult Dr. Phillips for pulmonary. Diagnostic Imaging Diagonstic Imaging: Xray Plain Films/CT/US/NM/MRI: chest Comments NAME: ANGEL [facility] REC#: [id number] PT STATUS: REG ER : 1960 PHYSICIAN: YARITZA ANGEL MD ADMIT DATE: 06/28/19/ER FS Signed POSDate of Exam:06/28/19 CHEST 1 VIEW AP/PA ONLY INDICATION: Seizure. COMPARISON: Comparison made with prior examination 11/02/2018. FINDINGS: The heart size is normal. There is mild venous congestion. There is a left basilar infiltrate. There is no pneumothorax. Mediastinum is unremarkable. IMPRESSION: 1. Patchy left basilar infiltrate suspect for early pneumonia. 2. Mild central pulmonary venous congestion. Dictated by: Dictated on workstation # [id number] Dict: 06/28/19 1120 Trans: 06/28/19 1137 TS [id number] Interpreted by: DAVID RODRIGUEZ MD Electronically signed by: DAVID RODRIGUEZ MD 06/28/19 1137 Diagonstic Imaging: CT Plain Films/CT/US/NM/MRI: head Comments NAME: ANGEL [facility] REC#: [id number] PT STATUS: REG ER : 1960 PHYSICIAN: YARITZA ANGEL MD ADMIT DATE: 06/28/19/ER FS Draft POSDate of Exam:06/28/19 CT HEAD WO PROCEDURE: CT head without contrast. TECHNIQUE: Multiple contiguous axial images were obtained through the brain without the use of intravenous contrast. Auto Exposure Controls were utilized during the CT exam to meet ALARA standards for radiation dose reduction. INDICATION: Seizure. FINDINGS: There is some cerebellar atrophy which is unchanged. Ventricles and sulci are within normal limits. There is no hydrocephalus. There is no midline shift. There is no mass, hemorrhage, or extra-axial fluid collection. The calvarium is intact. The sinuses and mastoid air cells are clear. IMPRESSION: Unchanged disproportionate cerebellar atrophy. Recommend clinical correlation and if warranted follow up with MRI. Otherwise, unremarkable noncontrast CT head. Dictated on workstation # [id number] Dict: 06/28/19 1056 Trans: 06/28/19 1059 [id number] Interpreted by: DAVID RODRIGUEZ MD Electronically signed by: Departure Communication (Admissions) Time/Spoke to Admitting Phy: 12:09 Discussed the case with Dr. Brooks for the [facility] on-call admitting staff and she accepted the patient for admission on behalf of Dr. Pastrana. She did request to place him on Zosyn for antibiotics and since this is a recurrent pneumonia in LLL of lung to have Dr. Phillips with pulmonary consulted as well as place the patient in ICU since he has had recurrent seizures while fighting this infection. Time/Spoke to Consulting Phy: 12:[address] Phillips said that he was aware of the patient being admitted to the ICU and the need for a pulmonary consult Impression Primary Impression: Pneumonia of left lower lobe due to infectious organism Additional Impression: Seizures Disposition: ADMITTED INPATIENT Condition: Stable Admissions Decision to Admit Reason: Admit from ER (General) Decision to Admit/Date: Jun 28, 2019 Time/Decision to Admit Time: 12:09 Departure-Patient Inst. Referrals: DARVIN PASTRANA MD (PCP/Family) Primary Care Physician YARITZA ANGEL MD Jun 28, 2019 10:31 POS
[2019-06-28 10:33] LABS: ABG BASE EXCESS 2.3 MMOL/L (-2.5-2.5); ABG OXYGEN SATURATION 93 % (94-100); ABG PCO2 43 MMHG (35-45); ABG PH 7.41 (7.37-7.43); ABG PO2 68 MMHG (79-93); ABG TCO2 28.6 MMOL/L (21.0-31.0)
[2019-06-28 10:34] LABS: ALLENS TEST YES-POS; BASOPHILS % (AUTO) 0 % (0-10); EOSINOPHILS % (AUTO) 0 % (0-10); HEMATOCRIT 38 % (40-54); HEMOGLOBIN 12.9 G/DL (13.3-17.7); INSPIRED O2 ROOM AIR; LYMPHOCYTES # (AUTO) 1.4 X 10^3 (1.0-4.0); LYMPHOCYTES % (AUTO) 8 % (12-44); MEAN CORPUSCULAR HEMOGLOBIN 32 PG (25-34); MEAN CORPUSCULAR HGB CONC 34 G/DL (32-36); MEAN CORPUSCULAR VOLUME 94 FL (80-99); MEAN PLATELET VOLUME 9.8 FL (7.4-10.4); MONOCYTES % (AUTO) 9 % (0-12); NEUTROPHILS # (AUTO) 14.6 X 10^3 (1.8-7.8); NEUTROPHILS % (AUTO) 83 % (42-75); PATIENT TEMP 37.7; PLATELET COUNT 376 10^3/uL (130-400); RED CELL DISTRIBUTION WIDTH 14.1 % (10.0-14.5); VENTILATOR NO; WHITE BLOOD COUNT 17.7 10^3/uL (4.3-11.0)
[2019-06-28 10:35] LABS: MONOCYTES # (AUTO) 1.5 X 10^3 (0.0-1.0)
[2019-06-28 10:58] LABS: ALANINE AMINOTRANSFERASE 9 U/L (0-55); ALBUMIN 3.9 GM/DL (3.2-4.5); ALKALINE PHOSPHATASE 127 U/L (40-136); BILIRUBIN,TOTAL 0.2 MG/DL (0.1-1.0); BUN/CREATININE RATIO 10; CALCIUM 8.5 MG/DL (8.5-10.1); CARBON DIOXIDE 23 MMOL/L (21-32); CHLORIDE 101 MMOL/L (98-107); CREATININE SERUM 0.79 MG/DL (0.60-1.30); GFR ESTIMATED > 60; GLUCOSE 130 MG/DL (70-105); POTASSIUM 4.1 MMOL/L (3.6-5.0); SODIUM 136 MMOL/L (135-145); TOTAL PROTEIN 7.5 GM/DL (6.4-8.2)
--- NOTE | 2019-06-28 11:00 | Diagnostic Imaging Report ---
PROCEDURE: CT head without contrast. TECHNIQUE: Multiple contiguous axial images were obtained through the brain without the use of intravenous contrast. Auto Exposure Controls were utilized during the CT exam to meet ALARA standards for radiation dose reduction. INDICATION: Seizure. FINDINGS: There is some cerebellar atrophy which is unchanged. Ventricles and sulci are within normal limits. There is no hydrocephalus. There is no midline shift. There is no mass, hemorrhage, or extra-axial fluid collection. The calvarium is intact. The sinuses and mastoid air cells are clear. IMPRESSION: Unchanged disproportionate cerebellar atrophy. Recommend clinical correlation and if warranted follow up with MRI. Otherwise, unremarkable noncontrast CT head. Dictated by: Dictated on workstation # [id number]
[2019-06-28 11:03] LABS: BILIRUBIN,URINE NEGATIVE (NEGATIVE); CLARITY,URINE CLEAR; COLOR,URINE YELLOW; GLUCOSE, URINE (UA) NEGATIVE (NEGATIVE); KETONES,URINE NEGATIVE (NEGATIVE); LEUKOCYTE ESTERASE ,URINE NEGATIVE (NEGATIVE); NITRITE,URINE NEGATIVE (NEGATIVE); PH,URINE 8.5 (5-9); PROTEIN,URINE NEGATIVE (NEGATIVE); RBC,URINE RARE /HPF; SQUAMOUS EPITHELIAL CELL,UR RARE /HPF
--- NOTE | 2019-06-28 11:25 | Diagnostic Imaging Report ---
INDICATION: Seizure. COMPARISON: Comparison made with prior examination 11/02/2018. FINDINGS: The heart size is normal. There is mild venous congestion. There is a left basilar infiltrate. There is no pneumothorax. Mediastinum is unremarkable. IMPRESSION: 1. Patchy left basilar infiltrate suspect for early pneumonia. 2. Mild central pulmonary venous congestion. Dictated by: Dictated on workstation # [id number]
[2019-06-28 11:29] LABS: BAND NEUTROPHILS 1 %; BASOPHILS % (MANUAL) 0 %; EOSINOPHILS % (MANUAL) 0 %; LYMPHOCYTES % (MANUAL) 6 %; MONOCYTES % (MANUAL) 5 %; NEUTROPHILS % (MANUAL) 88 %; RBC MORPH NORMAL
[2019-06-28] MEDS ORDERED: PIPERACILLIN SODIUM/TAZOBACTAM 4.5 GM in NS (IVPB) 100 ML IV STA (12:06)
[2019-06-28] MEDS ORDERED: AZITHROMYCIN 500 MG/NS 250 ML IVPB IV SCH ×2 (14:18)
[2019-06-28] MEDS ORDERED: CATHETER FLUSH 10 ML SYR IV PRN ×2 (14:30→16:15)
[2019-06-28] MEDS ORDERED: MULT1TAB69 PO (15:39)
[2019-06-28] MEDS ORDERED: NAPR-915 PO (15:39)
--- NOTE | 2019-06-28 15:42 | NUR ---
PATIENTS HAD MEDICATION BOTTLES, WE WENT OVER THEM AND SHE VERIFIED HIS EXACT SCHEDULE.
--- NOTE | 2019-06-28 15:56 | Pulmonary Consultation ---
History of Present Illness History of Present Illness Date of Consultation 06/28/19 15:51 Date of Admission Allergies and Home Medications Allergies Coded Allergies: bupropion (Verified Allergy, Severe, seizure, 10/20/18) acetaminophen (Verified Adverse Reaction, Severe, seizure, 10/20/18) escitalopram (Verified Adverse Reaction, Severe, seizure, 10/20/18) oxycodone (Verified Adverse Reaction, Severe, seizure, 10/20/18) tramadol (Verified Adverse Reaction, Severe, seizure, 10/20/18) Home Medications Diazepam 5 Mg/1 Ml Oral.conc, 5 MG PO TID PRN for SEIZURE ACTIVITY, (Reported) Multivitamin 1 Each Tablet, 1 TAB PO DAILY, (Reported) Naproxen 500 Mg Tablet, 500 MG PO Q12H PRN for FEVER, (Reported) Phenobarbital 97.2 Mg Tablet, 194.4 MG 2200, (Reported) TAKES 2 (97.2MG) TABLETS Phenytoin Sodium Extended 100 Mg Capsule, 300 MG 0600, (Reported) TAKES 3 (100MG) CAPSULES IN ADDITION TO 30MG CAPSULE FOR A TOTAL DAILY DOSE OF 330MG Phenytoin Sodium Extended 30 Mg Capsule, 30 MG 0600, (Reported) TAKES ALONG WITH 3 (100MG) CAPSULES FOR A TOTAL DAILY DOSE OF 330MG Tiagabine HCl 12 Mg Tablet, 12 MG 0600,1400,2200, (Reported) Past Fxqepuh-Rpnhtv-Wqanln Hx Past Med/Social Hx: Reviewed Nursing Past Med/Soc Hx Patient Social History Alcohol Use: Denies Use Recreational Drug Use: No Smoking Status: Never a Smoker 2nd Hand Smoke Exposure: No Recent Foreign Travel: No Contact w/Someone Who Travel: No Recent Infectious Disease Expo: No Recent Hopitalizations: No Physical Abuse: No Sexual Abuse: No Mistreated: No Fear: No Seasonal Allergies Seasonal Allergies: No Past Medical History Surgeries: No Respiratory: Yes (Soria Sean influenza ) Cardiac: No Neurological: Yes Seizure Disorder Genitourinary: No Gastrointestinal: No Musculoskeletal: No Endocrine: No HEENT: No Cancer: No Psychosocial: No Integumentary: No Blood Disorders: No Sepsis Event Evaluation Height, Weight, BMI Height: 6'10.00" Weight: 200lbs. oz. 90.114449qh; 30.19 BMI Method:Estimated Exam Exam Vital Signs Date Time Temp Pulse Resp B/P (MAP) Pulse Ox O2 Delivery O2 Flow Rate FiO2 06/28/19 14:28 98 Room Air 06/28/19 14:05 79 06/28/19 13:16 37.2 74 18 128/79 97 Nasal Cannula 2.00 06/28/19 10:00 37.7 119 18 157/89 (111) 20 Room Air Height & Weight Height: 6'10.00" Weight: 200lbs. oz. 90.081743zy; 30.19 BMI Method:Estimated General Appearance: No Apparent Distress, WD/WN HEENT: Pharynx Normal (no laceration to tongue or bite elloitt noted) Neck: Full Range of Motion, Supple Respiratory: Chest Non Tender, No Accessory Muscle Use, No Respiratory D istress, Decreased Breath Sounds, Rales (in bases), Rhonci (in bases) Cardiovascular: Regular Rate, Rhythm, No Edema, Normal Peripheral Pulses Capillary Refill: Less Than 3 Seconds Extremity: Normal Capillary Refill, No Pedal Edema Neurologic/Psychiatric: Other (opens eyes to voice, localizes to pain, no verbal response) Skin: Normal Color, Warm/Dry Results Lab Laboratory Tests 06/28/19 10:15 Assessment/Plan Assessment/Plan Recurrent PNA with sepsis -Check CT of chest -May need bronchoscopy -Continue Zosyn and azithromycin for now -SVNS Seizures -Seizure precautions restart home meds -Start REBECCA So DO Jun 28, 2019 15:56 POS
[2019-06-28] MEDS ORDERED: LORazepam INJ 2 MG/ML (ATIVAN) VIAL IVP PRN (16:00)
[2019-06-28] MEDS ORDERED: NS 100 ML (IVPB) BAG IV ONE (16:15)
[2019-06-28] MEDS ORDERED: IOHEXOL 350 MG/ML 100 ML (OMNIPAQUE 350) VIAL IV ONE (16:15)
[2019-06-28] MEDS ORDERED: HOLD METFORMIN - RECEIVED CONTRAST 20 ML VIAL IV SCH (16:15)
[2019-06-28] MEDS ORDERED: RT-ALBUTEROL SULF 2.5 MG/3 ML PRE-MIX VIAL INH PRN (17:00)
--- NOTE | 2019-06-28 18:07 | Progress Note ---
Standard Progress Note Progress Notes/Assess & Plan Date Seen by a Provider: Jun 28, 2019 Time Seen by a Provider: 17:45 Progress/Assessment & Plan iv attempt to l foot unsuccessful. pt has a patent 24ga to right foot. start time 1745 end time 1800. Focused Exam Lactate Level 06/28/19 10:15: Lactic Acid Level 0.98 DALILA SOMERS CRNA Jun 28, 2019 18:07 POS
[2019-06-28] MEDS ORDERED: PATIENT MAY USE OWN MED,SINGLE MED PO SCH ×3 (19:00)
--- NOTE | 2019-06-28 19:43 | Consultation - Surgery ---
VICTOR MANUEL STEPHENSON,MED STUDENT 06/28/19 1943: History of Present Illness History of Present Illness Patient Consulted On(carmen/time) 06/28/19 19:35 Date Seen by Provider: Jun 28, 2019 Time Seen by Provider: 19:00 History of Present Illness Mr. Fontenot is a 59yo male presenting with longstanding seizures and 3 days of cough and SOB. CXR shows patchy left basilar infiltrate suspect for early pneumonia. Additionally he was found to have poor venous access, and general surgery was consulted for placement of central line. Patient was informed of risks and benefits of this procedure and he consented to the procedure. Allergies and Home Medications Allergies Coded Allergies: bupropion (Verified Allergy, Severe, seizure, 10/20/18) acetaminophen (Verified Adverse Reaction, Severe, seizure, 10/20/18) escitalopram (Verified Adverse Reaction, Severe, seizure, 10/20/18) oxycodone (Verified Adverse Reaction, Severe, seizure, 10/20/18) tramadol (Verified Adverse Reaction, Severe, seizure, 10/20/18) Home Medications Diazepam 5 Mg/1 Ml Oral.conc, 5 MG PO TID PRN for SEIZURE ACTIVITY, (Reported) Multivitamin 1 Each Tablet, 1 TAB PO DAILY, (Reported) Naproxen 500 Mg Tablet, 500 MG PO Q12H PRN for FEVER, (Reported) Phenobarbital 97.2 Mg Tablet, 194.4 MG 2200, (Reported) TAKES 2 (97.2MG) TABLETS Phenytoin Sodium Extended 100 Mg Capsule, 300 MG 0600, (Reported) TAKES 3 (100MG) CAPSULES IN ADDITION TO 30MG CAPSULE FOR A TOTAL DAILY DOSE OF 330MG Phenytoin Sodium Extended 30 Mg Capsule, 30 MG 0600, (Reported) TAKES ALONG WITH 3 (100MG) CAPSULES FOR A TOTAL DAILY DOSE OF 330MG Tiagabine HCl 12 Mg Tablet, 12 MG 0600,1400,2200, (Reported) Past Qgoabij-Deoqwh-Icwipz Hx Patient Social History Alcohol Use: Denies Use Recreational Drug Use: No Smoking Status: Never a Smoker 2nd Hand Smoke Exposure: No Recent Foreign Travel: No Contact w/Someone Who Travel: No Recent Infectious Disease Expo: No Recent Hopitalizations: No Seasonal Allergies Seasonal Allergies: No Surgeries History of Surgeries: No Respiratory History of Respiratory Disorde: Yes ( influenza ) Cardiovascular History of Cardiac Disorders: No Neurological History of Neurological Disord: Yes Neurological Disorders: Seizure Disorder Genitourinary History of Genitourinary Disor: No Gastrointestinal History of Gastrointestinal Di: No Musculoskeletal History of Musculoskeletal Dis: No Endocrine History of Endocrine Disorders: No HEENT History of HEENT Disorders: No Cancer History of Cancer: No Psychosocial History of Psychiatric Problem: No Integumentary History of Skin or Integumenta: No Blood Transfusions History of Blood Disorders: No Physical Exam-General Problems Physical Exam Vital Signs Vital Signs - First Documented 06/28/19 06/28/19 10:00 13:16 Temp 37.7 Pulse 119 Resp 18 B/P (MAP) 157/89 (111) Pulse Ox 20 O2 Delivery Room Air O2 Flow Rate 2.00 Capillary Refill : Less Than 3 Seconds Data Review Labs Laboratory Tests 06/28/19 10:15: White Blood Count 17.7H, Red Blood Count 4.06L, Hemoglobin 12.9L, Hematocrit 38L , Mean Corpuscular Volume 94, Mean Corpuscular Hemoglobin 32, Mean Corpuscular Hemoglobin Concent 34, Red Cell Distribution Width 14.1, Platelet Count 376, Mean Platelet Volume 9.8, Neutrophils (%) (Auto) 83H, Lymphocytes (%) (Auto) 8L, Monocytes (%) (Auto) 9, Eosinophils (%) (Auto) 0, Basophils (%) (Auto) 0, Neutrophils # (Auto) 14.6H, Lymphocytes # (Auto) 1.4, Monocytes # (Auto) 1.5H, Eosinophils # (Auto) 0.0, Basophils # (Auto) 0.0, Neutrophils % (Manual) 88, Lymphocytes % (Manual) 6, Monocytes % (Manual) 5, Eosinophils % (Manual) 0, Basophils % (Manual) 0, Band Neutrophils 1, Blood Morphology Comment NORMAL, Blood Gas Puncture Site RT RAD, Blood Gas Patient Temperature 37.7, Arterial Blood pH 7.41, Arterial Blood Partial Pressure CO2 43, Arterial Blood Partial Pressure O2 68L, Arterial Blood HCO3 27, Arterial Blood Total CO2 28.6, Arterial Blood Oxygen Saturation 93L, Arterial Blood Base Excess 2.3, Alfie Test YES-POS, Blood Gas Ventilator Setting NO, Blood Gas Inspired Oxygen ROOM AIR, Sodium Level 136, Potassium Level 4.1, Chloride Level 101, Carbon Dioxide Level 23, Anion Gap 12, Blood Urea Nitrogen 8, Creatinine 0.79, Estimat Glomerular Filtration Rate > 60, BUN/Creatinine Ratio 10, Glucose Level 130H, Lactic Acid Level 0.98, Calcium Level 8.5, Corrected Calcium 8.6, Total Bilirubin 0.2, Aspartate Amino Transf (AST/SGOT) 15, Alanine Aminotransferase (ALT/SGPT) 9, Alkaline Phosphatase 127, Total Protein 7.5, Albumin 3.9 06/28/19 10:35: Urine Color YELLOW, Urine Clarity CLEAR, Urine pH 8.5, Urine Specific [place] 1.010L, Urine Protein NEGATIVE, Urine Glucose (UA) NEGATIVE, Urine Ketones NEGATIVE, Urine Nitrite NEGATIVE, Urine Bilirubin NEGATIVE, Urine Urobilinogen 0.2, Urine Leukocyte Esterase NEGATIVE, Urine RBC (Auto) NEGATIVE, Urine RBC RARE, Urine WBC NONE, Urine Squamous Epithelial Cells RARE, Urine Crystals NONE, Urine Bacteria NONE, Urine Casts NONE, Urine Mucus NEGATIVE, Urine Culture Indicated NO 06/28/19 15:25: Assessment/Plan Assessment/Plan Assessment/Plan History of seizures Pneumonia Poor venous access Central line placement Stat CXR to confirm placement Continue ICU management Clinical Quality Measures DVT/VTE Risk/Contraindication: Risk Factor Score Per Nursin RFS Level Per Nursing on Admit: 2=Moderate AIYANA CLINE DO 06/28/192038: History of Present Illness History of Present Illness History of Present Illness Consult requested by Dr. Brooks for central line placement for poor venous access. Patient 59 year old male with 3 days of cough and shortness of breath. Also with seizures that cause him to think slightly foggy. Patient was admitted to the ICU for early pneumonia left lower lung and is on seizure precautions. Multiple attempts at IV access have been made including efforts by anesthesia. Still without adequate access. Allergies and Home Medications Allergies Coded Allergies: bupropion (Verified Allergy, Severe, seizure, 10/20/18) acetaminophen (Verified Adverse Reaction, Severe, seizure, 10/20/18) escitalopram (Verified Adverse Reaction, Severe, seizure, 10/20/18) oxycodone (Verified Adverse Reaction, Severe, seizure, 10/20/18) tramadol (Verified Adverse Reaction, Severe, seizure, 10/20/18) Home Medications Diazepam 5 Mg/1 Ml Oral.conc, 5 MG PO TID PRN for SEIZURE ACTIVITY, (Reported) Multivitamin 1 Each Tablet, 1 TAB PO DAILY, (Reported) Naproxen 500 Mg Tablet, 500 MG PO Q12H PRN for FEVER, (Reported) Phenobarbital 97.2 Mg Tablet, 194.4 MG 2200, (Reported) TAKES 2 (97.2MG) TABLETS Phenytoin Sodium Extended 100 Mg Capsule, 300 MG 0600, (Reported) TAKES 3 (100MG) CAPSULES IN ADDITION TO 30MG CAPSULE FOR A TOTAL DAILY DOSE OF 330MG Phenytoin Sodium Extended 30 Mg Capsule, 30 MG 0600, (Reported) TAKES ALONG WITH 3 (100MG) CAPSULES FOR A TOTAL DAILY DOSE OF 330MG Tiagabine HCl 12 Mg Tablet, 12 MG 0600,1400,2200, (Reported) Patient Home Medication List Home Medication List Reviewed: Yes Past Twfgygc-Kqmdjt-Ugjlsx Hx Patient Social History Alcohol Use: Denies Use Recreational Drug Use: No Smoking Status: Never a Smoker Surgeries History of Surgeries: No Respiratory Respiratory Disorders: Pneumonia Cardiovascular History of Cardiac Disorders: No Neurological Neurological Disorders: Seizure Disorder Genitourinary History of Genitourinary Disor: No Gastrointestinal History of Gastrointestinal Di: No Musculoskeletal History of Musculoskeletal Dis: No Endocrine History of Endocrine Disorders: No HEENT History of HEENT Disorders: No Cancer History of Cancer: No Psychosocial History of Psychiatric Problem: No Family Medical History Significant Family History: No Pertinent Family Hx Review of Systems-General Constitutional: no symptoms reported EENTM: no symptoms reported Respiratory: see HPI Cardiovascular: no symptoms reported Gastrointestinal: no symptoms reported Genitourinary: no symptoms reported Musculoskeletal: no symptoms reported Skin: no symptoms reported Psychiatric/Neurological: No Symptoms Reported Physical Exam-General Problems Physical Exam General Appearance: WD/WN, no apparent distress HEENT: PERRL/EOMI, normal ENT inspection Neck: supple, normal inspection Respiratory: chest non-tender, no respiratory distress, no accessory muscle use Cardiovascular: regular rate, rhythm Gastrointestinal: non tender, soft, no organomegaly Rectal: deferred Back: no CVA tenderness Extremities: non-tender, normal inspection Neurologic/Psychiatric: alert, normal mood/affect, oriented x 3 Skin: normal color, warm/dry Lymphatic: no adenopathy Assessment/Plan Assessment/Plan Assessment/Plan History of seizures Pneumonia Poor venous access discussed risks and benefits of central line placement with patient and family who understand risks and benefits and wish to proceed will place using u/s guidance chest x ray after placed no complication therefor can use central line medical management Supervisory-Addendum Brief Verification & Attestation Participated in pt care: history, MDM, physical Personally performed: exam, history, MDM, supervision of care Care discussed with: Medical Student Procedures: n/a Results interpretation: Verified all documentation Verification and Attestation of Medical Student E/M Service A medical student performed and documented this service in my presence. I reviewed and verified all information documented by the medical student and made modifications to such information, when appropriate. I personally performed the physical exam and medical decision making. Aiyana Cline, Jun 28, 2019,20:44 VICTOR MANUEL STEPHENSON,MED STUDENT Jun 28, 2019 19:43 AIYANA REESE DO Jun 28, 2019 20:39 POS
--- NOTE | 2019-06-28 19:46 | Diagnostic Imaging Report ---
INDICATION: Post line placement. TECHNIQUE: Single view chest 7:29 PM. CORRELATION STUDY: 06/28/2019 FINDINGS: Right IJ central line has been placed, the tip projects over the expected location in the low SVC. Heart size and mediastinum are relatively stable. Vasculature is slightly less congested. Likely areas of atelectasis about the lung bases. No significant effusion or pneumothorax. IMPRESSION: 1. Right IJ central line is in place, the tip projecting over the low SVC. No evidence for post line placement complication. Dictated by: Dictated on workstation # [id number]
[2019-06-28] MEDS: RT-ALBUTEROL SULF 2.5 MG/3 ML PRE-MIX VIAL INH SCH (19:56)
[2019-06-28] MEDS: LEVETIRACETAM INJECTION 1,000 MG in NS (IVPB) 100 ML IV SCH (20:57)
[2019-06-28] MEDS: PIPERACILLIN/TAZO 4.5 GM/NS 100 ML IV SCH ×2 (20:57)
[2019-06-28] MEDS: NS IV 1000 ML 1,000 ML IV SCH (20:58)
--- NOTE | 2019-06-28 21:01 | Diagnostic Imaging Report ---
EXAMINATION: CT Chest with intravenous contrast. TECHNIQUE: Multiple contiguous axial images were obtained through the chest after the uneventful administration of intravenous contrast. All CT scans use one or more of the following dose optimizing techniques: automated exposure control, MA and/or KvP adjustment based on a patient size and exam type, or iterative reconstruction. HISTORY: Pneumonia COMPARISON: None available. FINDINGS: There is mild bibasilar atelectasis or scarring. No pleural effusion or pneumothorax. No suspicious nodules. Heart size is normal. No pericardial effusion. Aorta is normal in caliber. There is no axillary or supraclavicular lymphadenopathy. There is no mediastinal lymphadenopathy. Limited views of the upper abdomen are unremarkable. There are no suspicious osseus lesions. IMPRESSION: 1. Mild bibasilar atelectasis or scarring with otherwise clear lungs. Dictated by: Dictated on workstation # [id number]
[2019-06-28] MEDS ORDERED: PHENobarbital 97.2 MG (1-1/2 GRAIN) TABLET PO SCH (22:00)
[2019-06-28] MEDS ORDERED: TIAGABINE HCL SCH (22:00)
[2019-06-28] MEDS: TIAGABINE PO SCH (22:08)
[2019-06-29] VITALS (11 sets, daily range): BP systolic 98–156; BP diastolic 61–84
--- NOTE | 2019-06-29 00:30 | OPERATIVE REPORT ---
DATE OF SERVICE: 06/28/2019 PREOPERATIVE DIAGNOSIS: Poor venous access. POSTOPERATIVE DIAGNOSIS: Poor venous access. PROCEDURE: Right internal jugular vein ultrasound-guided central line placement. SURGEON: Aiyana Brandon DO ANESTHESIA: 1% lidocaine 4 mL. ESTIMATED BLOOD LOSS: Minimal. COMPLICATIONS: None. INDICATIONS: The patient is a 59-year-old male admitted to the intensive care unit. He has poor venous access and needing central line placement. He understands the risks and benefits of procedure along with the family who wished to proceed. Consent was signed in the chart. DESCRIPTION OF PROCEDURE: The patient was prepped and draped in sterile fashion. Timeout was performed. Ultrasound was used to isolate the right internal jugular vein. Local anesthetic was infiltrated around the area. Once anesthetic effect took place under ultrasound guidance, right internal jugular vein was then accessed, dark nonpulsatile blood was withdrawn. Wire was inserted through the needle and the needle was removed. A #11 blade scalpel was used to make a small skin incision. Dilator was then advanced over the guidewire and removed. The triple lumen catheter was then advanced over the guidewire and the wire was removed. All ports were accessed and flushed without difficulty. The triple lumen catheter was then sutured in the usual fashion. The area was then washed and dried and sterile bandage was applied. The patient tolerated procedure well without any complications. Chest x-ray pending. Job ID: [id number] DocumentID: [id number] Dictated Date: 06/28/2019 19:35:51 Change Management Manager Date: 06/29/2019 00:29:42 Dictated By: AIYANA BRANDON DO
[2019-06-29] MEDS: NS IV 1000 ML 1,000 ML IV SCH ×2 (01:34→10:01)
[2019-06-29] MEDS: PIPERACILLIN/TAZO 4.5 GM/NS 100 ML IV SCH ×4 (03:14→10:01)
[2019-06-29 03:58] LABS: BASOPHILS % (AUTO) 0 % (0-10); EOSINOPHILS # (AUTO) 0.1 10^3/uL (0.0-0.3); EOSINOPHILS % (AUTO) 1 % (0-10); HEMATOCRIT 33 % (40-54); HEMOGLOBIN 10.9 G/DL (13.3-17.7); LYMPHOCYTES # (AUTO) 1.8 X 10^3 (1.0-4.0); LYMPHOCYTES % (AUTO) 16 % (12-44); MEAN CORPUSCULAR HEMOGLOBIN 31 PG (25-34); MEAN CORPUSCULAR HGB CONC 33 G/DL (32-36); MEAN CORPUSCULAR VOLUME 95 FL (80-99); MEAN PLATELET VOLUME 10.2 FL (7.4-10.4); MONOCYTES # (AUTO) 1.3 X 10^3 (0.0-1.0); MONOCYTES % (AUTO) 12 % (0-12); NEUTROPHILS # (AUTO) 7.6 X 10^3 (1.8-7.8); NEUTROPHILS % (AUTO) 70 % (42-75); PLATELET COUNT 324 10^3/uL (130-400); RED CELL DISTRIBUTION WIDTH 14.8 % (10.0-14.5); WHITE BLOOD COUNT 10.8 10^3/uL (4.3-11.0)
--- NOTE | 2019-06-29 04:03 | Pulmonary Progress Note ---
CHAN PALMER A MEDICAL STUDENT 06/29/19 0403: Subjective Date Seen by a Provider: Jun 29, 2019 Time Seen by a Provider: 03:58 Subjective/Events-last exam 59-year-old with Hx of seizures was admitted from the ED last night after he had increased seizure activity. Pt also has reported increased cough and SOB over the last 3 days per . Pt was given 1mg Ativan by EMS prior to arrival to the ED which controlled his seizures. In the ED pt had decreased breath sounds with some crackles in the bases. Sepsis Event Evaluation Height, Weight, BMI Height: 6'10.00" Weight: 200lbs. oz. 90.218763ii; 30.19 BMI Method:Estimated Focused Exam Lactate Level 06/28/19 10:15: Lactic Acid Level 0.98 Exam Exam Vital Signs Date Time Temp Pulse Resp B/P (MAP) Pulse Ox O2 Delivery O2 Flow Rate FiO2 06/29/19 00:00 Room Air 06/28/19 23:00 88 15 115/103 (107) 98 Room Air 06/28/19 22:00 95 12 133/81 (98) 94 Room Air 06/28/19 21:00 97 12 135/77 (96) 95 Room Air 06/28/19 20:00 Room Air 06/28/19 20:00 36.5 06/28/19 20:00 83 102/63 (76) 100 Room Air 06/28/19 19:57 94 Room Air 06/28/19 19:00 75 12 98/80 (86) 96 Room Air 06/28/19 19:00 75 06/28/19 18:00 81 14 135/85 (102) 97 Room Air 06/28/19 17:00 80 15 121/89 (100) 99 Room Air 06/28/19 16:38 37.2 75 96 06/28/19 16:00 75 12 137/88 (104) 96 Room Air 06/28/19 16:00 99 Room Air 06/28/19 15:00 75 11 110/72 (85) 92 Room Air 06/28/19 14:28 98 Room Air 06/28/19 14:15 76 12 105/70 (82) 99 Room Air 06/28/19 14:05 79 06/28/19 13:16 37.2 74 18 128/79 97 Nasal Cannula 2.00 06/28/19 10:00 37.7 119 18 157/89 (111) 20 Room Air I & O 06/29/19 06:59 Intake Total 4230 ml Output Total 1750 ml Balance 2480 ml Height & Weight Height: 6'10.00" Weight: 200lbs. oz. 90.621951kj; 30.19 BMI Method:Estimated General Appearance: No Apparent Distress, WD/WN HEENT: Pharynx Normal (no laceration to tongue or bite elliott noted) Neck: Full Range of Motion, Supple Respiratory: Chest Non Tender, No Accessory Muscle Use, No Respiratory Distress, Decreased Breath Sounds, Rales (in bases), Rhonci (in bases) Cardiovascular: Regular Rate, Rhythm, No Edema, Normal Peripheral Pulses Capillary Refill: Less Than 3 Seconds Gastrointestinal: non tender, soft, no organomegaly Extremity: Normal Capillary Refill, No Pedal Edema Neurologic/Psychiatric: Other (opens eyes to voice, localizes to pain, no verbal response) Skin: Normal Color, Warm/Dry Results Lab Laboratory Tests 06/28/19 10:15 Assessment/Plan Assessment/Plan Recurrent PNA with sepsis -Chest CT showed mild bibasilar atelectasis/scarring -May need bronchoscopy -Continue Zosyn and azithromycin -SVNS Seizures -Pt was given 1mg Ativan by EMS and given Phenytoin in ED -Pt on Keppra drip at 440cc/hr -Pt has not had another seizure since being in the hospital -continue Seizure precautions -continue home meds DVT prophylaxis In 2310 out 1250 net 1060 Lines: -zosyn 30cc/hr -azithromycin in NS 250cc/hr -NS 100cc/hr -Levetracetam 440cc/hr - REBECCA HERMAN DO 06/29/19 0513: Subjective Time Seen by a Provider: 05:08 Assessment/Plan Assessment/Plan PNA - recurrent vs resolving - CT is not impressive for pneumonia however will proceed with Zosyn vs Augmentin x 5 days then D/C -Chest CT showed mild bibasilar atelectasis/scarring -- - Zosyn vs Augmentin --- x 5 days then D/C -SVNS Seizures -Pt was given 1mg Ativan by EMS and given Phenytoin in ED -Pt on Keppra drip at 440cc/hr -Pt has not had another seizure since being in the hospital -continue Seizure precautions -continue home meds DVT prophylaxis In 2310 out 1250 net 1060 Lines: -zosyn 30cc/hr -azithromycin in NS 250cc/hr -NS 100cc/hr -Levetracetam 440cc/hr - CHAN PALMER MEDICAL STUDENT Jun 29, 2019 04:03 REBECCA PLASCENCIA DO Jun 29, 2019 05:13 POS
[2019-06-29 04:06] LABS: BUN/CREATININE RATIO 12; CALCIUM 7.8 MG/DL (8.5-10.1); CARBON DIOXIDE 23 MMOL/L (21-32); CHLORIDE 109 MMOL/L (98-107); CREATININE SERUM 0.83 MG/DL (0.60-1.30); GFR ESTIMATED > 60; GLUCOSE 99 MG/DL (70-105); PHOSPHORUS 3.1 MG/DL (2.3-4.7); POTASSIUM 3.8 MMOL/L (3.6-5.0); SODIUM 142 MMOL/L (135-145)
[2019-06-29] MEDS: RT-ALBUTEROL SULF 2.5 MG/3 ML PRE-MIX VIAL INH SCH ×3 (04:49→15:19)
--- NOTE | 2019-06-29 05:42 | Diagnostic Imaging Report ---
Portable erect AP chest at 0356 hours. INDICATION: Pneumonia. FINDINGS: The heart size is within normal limits and stable when compared to 06/28/2019. As noted on the previous study, there is mild bibasilar atelectasis/infiltrate. The lungs are otherwise generally clear. There is no consolidated pneumonia identified nor is there any evidence for a pleural effusion. The mediastinum is not widened. The osseous structures are intact. The central venous catheter on the right seen previously is unchanged in position. IMPRESSION: Stable chest. There has been no adverse change since the prior exam. Dictated by: Dictated on workstation # [id number]
[2019-06-29] MEDS ORDERED: PHENYTOIN SODIUM 300 MG SCH (06:00)
[2019-06-29] MEDS ORDERED: PHENYTOIN ORAL SUSPENSION 125 MG/5 ML UDC PO SCH (06:00)
[2019-06-29] MEDS ORDERED: KCL 20 MEQ TAB (K-DUR) PO SCH (06:00)
[2019-06-29] MEDS ORDERED: PHENYTOIN SODIUM 30 MG SCH (06:00)
[2019-06-29] MEDS ORDERED: MAGNESIUM 1 GM/100 ML IVPB 100 ML IV SCH (06:00)
[2019-06-29] MEDS ORDERED: POTASSIUM CL 10MEQ/50ML IVPB 50 ML IV SCH (06:00)
[2019-06-29] MEDS ORDERED: PHENYTOIN 100 MG (DILANTIN) CAP PO SCH ×2 (06:00→08:05)
[2019-06-29] MEDS ORDERED: PHENYTOIN 30 MG PO SCH (06:00)
[2019-06-29] MEDS: TIAGABINE PO SCH ×2 (06:13→13:51)
[2019-06-29] MEDS: LEVETIRACETAM INJECTION 1,000 MG in NS (IVPB) 100 ML IV SCH (06:13)
--- NOTE | 2019-06-29 07:24 | Progress Note - Surgery ---
Subjective Date Seen by a Provider: Jun 29, 2019 Time Seen by a Provider: 07:05 Subjective/Events-last exam Pt was alert and oriented in no acute distress. Family at bed side Pt denies pain where the central line was placed, central line is in use and there is good flow. Stat CXR after placement showed central line was in place with no evidence for post line placement complication. Right side of the neck where central line was placed showed no erythema and no discharge Pt has no questions or concerns in regards to central line at this time. Review of Systems General: No Chills, No Night Sweats Pulmonary: No Dyspnea, No Pleuritic Chest Pain Cardiovascular: No: Chest Pain, Palpitations Gastrointestinal: No: Nausea, Vomiting Focused Exam Lactate Level 06/28/19 10:15: Lactic Acid Level 0.98 Objective Exam Vital Signs Date Time Temp Pulse Resp B/P (MAP) Pulse Ox O2 Delivery O2 Flow Rate FiO2 06/29/19 06:00 72 10 138/68 (91) 94 NIV CPAP 06/29/19 05:00 69 20 122/75 (91) 95 NIV CPAP 06/29/19 04:49 95 NIV CPAP 06/29/19 04:20 74 31 123/82 (96) 99 NIV CPAP 06/29/19 04:00 NIV CPAP 06/29/19 03:00 70 10 98/61 (73) 95 NIV CPAP 06/29/19 02:00 73 11 102/64 (77) 95 NIV CPAP 06/29/19 01:00 76 113/73 (86) 94 NIV CPAP 06/29/19 01:00 76 06/29/19 00:15 85 124/79 (94) 96 NIV CPAP 06/29/19 00:00 NIV CPAP 06/29/19 00:00 87 96 NIV CPAP 06/28/19 23:00 88 15 115/103 (107) 98 Room Air 06/28/19 22:00 95 12 133/81 (98) 94 Room Air 06/28/19 21:00 97 12 135/77 (96) 95 Room Air 06/28/19 20:00 Room Air 06/28/19 20:00 36.5 06/28/19 20:00 83 102/63 (76) 100 Room Air 06/28/19 19:57 94 Room Air 06/28/19 19:00 75 12 98/80 (86) 96 Room Air 06/28/19 19:00 75 06/28/19 18:00 81 14 135/85 (102) 97 Room Air 06/28/19 17:00 80 15 121/89 (100) 99 Room Air 06/28/19 16:38 37.2 75 96 06/28/19 16:00 75 12 137/88 (104) 96 Room Air 06/28/19 16:00 99 Room Air 06/28/19 15:00 75 11 110/72 (85) 92 Room Air 06/28/19 14:28 98 Room Air 06/28/19 14:15 76 12 105/70 (82) 99 Room Air 06/28/19 14:05 79 06/28/19 13:16 37.2 74 18 128/79 97 Nasal Cannula 2.00 06/28/19 10:00 37.7 119 18 157/89 (111) 20 Room Air I & O 06/29/19 07:00 Intake Total 5130 ml Output Total 2750 ml Balance 2380 ml Capillary Refill : Less Than 3 Seconds General Appearance: No Apparent Distress, WD/WN HEENT: Pharynx Normal (no laceration to tongue or bite elliott noted) Neck: Full Range of Motion, Supple Respiratory: Chest Non Tender, No Accessory Muscle Use, No Respiratory Distress, Decreased Breath Sounds, Rales (in bases), Rhonci (in bases) Cardiovascular: Regular Rate, Rhythm, No Edema, Normal Peripheral Pulses Peripheral Pulses: 2+ Radial Pulses (R), 2+ Radial Pulses (L) Extremity: Normal Capillary Refill, No Pedal Edema Neurologic/Psychiatric: Other (opens eyes to voice, localizes to pain, no verbal response) Skin: Normal Color, Warm/Dry Results Lab Laboratory Tests 06/28/19 10:15: White Blood Count 17.7H, Red Blood Count 4.06L, Hemoglobin 12.9L, Hematocrit 38L , Mean Corpuscular Volume 94, Mean Corpuscular Hemoglobin 32, Mean Corpuscular Hemoglobin Concent 34, Red Cell Distribution Width 14.1, Platelet Count 376, Mean Platelet Volume 9.8, Neutrophils (%) (Auto) 83H, Lymphocytes (%) (Auto) 8L, Monocytes (%) (Auto) 9, Eosinophils (%) (Auto) 0, Basophils (%) (Auto) 0, Neutrophils # (Auto) 14.6H, Lymphocytes # (Auto) 1.4, Monocytes # (Auto) 1.5H, Eosinophils # (Auto) 0.0, Basophils # (Auto) 0.0, Neutrophils % (Manual) 88, Lymphocytes % (Manual) 6, Monocytes % (Manual) 5, Eosinophils % (Manual) 0, Basophils % (Manual) 0, Band Neutrophils 1, Blood Morphology Comment NORMAL, Blood Gas Puncture Site RT RAD, Blood Gas Patient Temperature 37.7, Arterial Blood pH 7.41, Arterial Blood Partial Pressure CO2 43, Arterial Blood Partial Pressure O2 68L, Arterial Blood HCO3 27, Arterial Blood Total CO2 28.6, Arterial Blood Oxygen Saturation 93L, Arterial Blood Base Excess 2.3, Alfie Test YES-POS, Blood Gas Ventilator Setting NO, Blood Gas Inspired Oxygen ROOM AIR, Sodium Level 136, Potassium Level 4.1, Chloride Level 101, Carbon Dioxide Level 23, Anion Gap 12, Blood Urea Nitrogen 8, Creatinine 0.79, Estimat Glomerular Filtration Rate > 60, BUN/Creatinine Ratio 10, Glucose Level 130H, Lactic Acid Level 0.98, Calcium Level 8.5, Corrected Calcium 8.6, Total Bilirubin 0.2, Aspartate Amino Transf (AST/SGOT) 15, Alanine Aminotransferase (ALT/SGPT) 9, Alkaline Phosphatase 127, Total Protein 7.5, Albumin 3.9 06/28/19 10:35: Urine Color YELLOW, Urine Clarity CLEAR, Urine pH 8.5, Urine Specific [place] 1.010L, Urine Protein NEGATIVE, Urine Glucose (UA) NEGATIVE, Urine Ketones NEGATIVE, Urine Nitrite NEGATIVE, Urine Bilirubin NEGATIVE, Urine Urobilinogen 0.2, Urine Leukocyte Esterase NEGATIVE, Urine RBC (Auto) NEGATIVE, Urine RBC RARE, Urine WBC NONE, Urine Squamous Epithelial Cells RARE, Urine Crystals NONE, Urine Bacteria NONE, Urine Casts NONE, Urine Mucus NEGATIVE, Urine Culture Indicated NO 06/28/19 15:25: Phenytoin (Dilantin) Level 16.6, Phenobarbital Level 31.1 06/29/19 03:10: White Blood Count 10.8, Red Blood Count 3.50L, Hemoglobin 10.9L, Hematocrit 33L, Mean Corpuscular Volume 95, Mean Corpuscular Hemoglobin 31, Mean Corpuscular Hemoglobin Concent 33, Red Cell Distribution Width 14.8H, Platelet Count 324, Mean Platelet Volume 10.2, Neutrophils (%) (Auto) 70, Lymphocytes (%) (Auto) 16, Monocytes (%) (Auto) 12, Eosinophils (%) (Auto) 1, Basophils (%) (Auto) 0, Neutrophils # (Auto) 7.6, Lymphocytes # (Auto) 1.8, Monocytes # (Auto) 1.3H, Eosinophils # (Auto) 0.1, Basophils # (Auto) 0.0, Sodium Level 142, Potassium Level 3.8, Chloride Level 109H, Carbon Dioxide Level 23, Anion Gap 10, Blood Urea Nitrogen 10, Creatinine 0.83, Estimat Glomerular Filtration Rate > 60, BUN/Creatinine Ratio 12, Glucose Level 99, Calcium Level 7.8L, Phosphorus Level 3.1, Magnesium Level 2.0 Assessment/Plan Assessment/Plan Assessment/Plan History of seizures Pneumonia Poor venous access - continue to monitor central line for return and infections - change dressing per central line protocol if needed Clinical Quality Measures DVT/VTE Risk/Contraindication: Risk Factor Score Per Nursin RFS Level Per Nursing on Admit: 2=Moderate RAMESH MELÉNDEZ [facility] Jun 29, 2019 07:23 POS
--- NOTE | 2019-06-29 07:30 | NUR ---
pt to room 410 introduced to room and call system. bedside report given to Chika ARTHUR.
[2019-06-29] MEDS ORDERED: ENOXAPARIN 40 MG/0.4 ML (LOVENOX) SYR SC SCH (09:00)
[2019-06-29] MEDS ORDERED: AMOX-358 PO (11:07)
--- NOTE | 2019-06-29 11:21 | Short Stay Summary-Hospitalist ---
LEISA JACK [facility] 06/29/19 1121: History of Present Illness HPI/Chief Complaint CC: Prolonged Seizure HPI: Pt presented to the ER via [facility] after having a prolonged seizure that was unable to be controlled with his home medications. he has a history of seizures that can normally be controlled with liquid Valium, but was not responding to the medication. He states he also had a cough that started at the same time as the prolonged and increased frequency seizures. He was evaluated and admitted to the ICU for the seizure that was able to be controlled with Keppra. He currently has no complaints the next morning after admission. Source: patient, family Date Seen 06/29/19 Time Seen by a Provider: 07:25 Attending Physician Juanis Jordan Pankaj K MD Referring Physician Date of Admission Jun 28, 2019 at 12:41 Home Medications & Allergies Home Medications Reviewed patient Home Medication Reconciliation performed by pharmacy medication reconciliations accounts payable technician and/or nursing. Patients Allergies have been reviewed. Allergies Allergies Coded Allergies bupropion (Verified Allergy, Severe, seizure, 10/20/18) acetaminophen (Verified Adverse Reaction, Severe, seizure, 10/20/18) escitalopram (Verified Adverse Reaction, Severe, seizure, 10/20/18) oxycodone (Verified Adverse Reaction, Severe, seizure, 10/20/18) tramadol (Verified Adverse Reaction, Severe, seizure, 10/20/18) Past Joivmkv-Vlwxcg-Asuevx Hx Past Med/Social Hx: Reviewed Nursing Past Med/Soc Hx Patient Social History Alcohol Use: Denies Use Recreational Drug Use: No Smoking Status: Never a Smoker 2nd Hand Smoke Exposure: No Recent Foreign Travel: No Contact w/other who traveled: No Recent Hopitalizations: No Recent Infectious Disease Expo: No Seasonal Allergies Seasonal Allergies: No Past Medical History Neurological: Seizure Disorder History of Blood Disorders: No Family History No Pertinent Family Hx Review of Systems Constitutional: No chills, No dizziness, No fever EENTM: No blurred vision, No double vision, No vision loss, No nose congestion Respiratory: No cough, No phlegm, No short of breath Cardiovascular: No chest pain, No palpitations Gastrointestinal: No abdominal pain, No constipation, No diarrhea Genitourinary: No dysuria; frequency; No pain Skin: no symptoms reported Psychiatric/Neurological: Denies Headache, Denies Numbness; Seizure; Denies Tingling Physical Exam Physical Exam Vital Signs Vital Signs - First Documented 06/28/19 06/28/19 10:00 13:16 Temp 37.7 Pulse 119 Resp 18 B/P (MAP) 157/89 (111) Pulse Ox 20 O2 Delivery Room Air O2 Flow Rate 2.00 Capillary Refill : Less Than 3 Seconds Height, Weight, BMI Height: 6'10.00" Weight: 200lbs. oz. 90.249125ma; 30.19 BMI Method:Estimated General Appearance: No Apparent Distress, WD/WN Eyes: Bilateral Eye PERRL HEENT: Pharynx Normal (no laceration to tongue or bite elliott noted) Neck: Full Range of Motion, Supple Respiratory: Chest Non Tender, No Accessory Muscle Use, No Respiratory Distress, Decreased Breath Sounds, Rales (in bases), Rhonci (in bases) Cardiovascular: Regular Rate, Rhythm, No Edema, Normal Peripheral Pulses Gastrointestinal: Normal Bowel Sounds, Non Tender, Soft Rectal: Deferred Extremity: Normal Capillary Refill, No Pedal Edema Neurologic/Psychiatric: Alert, No Motor/Sensory Deficits, Normal Mood/Affect, Other (opens eyes to voice, localizes to pain, no verbal response) Skin: Normal Color, Warm/Dry Results Results/Procedures Labs Laboratory Tests 06/28/19 10:15 06/29/19 03:10 Patient resulted labs reviewed. Short Stay Diagnosis Conclusion Plan PLAN: Follow up with Dr Orozco for possible seizure medication changes Follow up with [facility] primary care Continue home medications Clinical Quality Measures DVT/VTE Risk/Contraindication: Risk Factor Score Per Nursin RFS Level Per Nursing on Admit: 2=Moderate JUANIS JORDAN DO 06/30/19 0749: History of Present Illness HPI/Chief Complaint CC: Status epilepticus with infiltrate on chest x ray HPI: This is a 59yoWM pt of Dr. Mack and Dr. Manolo Orozco neurology with a PMH of lifelong seizure disorders maintained on three epileptic medication who presented to the [facility] ER status epilepticus was not abortedwith the Diazepam that his gave him so chest x rayrevealed infiltrate sent to the ICU and monitored closely no recurrent seizure. CT chest revealed no pneumonia just atelectasis so he was placed on broad spectrum antibiotics of Zosyn and he will continue that with Augmentin for an additional 5 days and he will be maintained on his CPAP machine per Dr. Orozco and I did speak with Dr. Orozco who recommended no medication changes and will see him as scheduledin July. Past Vfbvpjr-Bwoobg-Unaslm Hx Past Med/Social Hx: Reviewed Nursing Past Med/Soc Hx, Reviewed and Corrections made Patient Social History Marrital Status: Past Medical History Neurological: Seizure Disorder Review of Systems Constitutional: see HPI Psychiatric/Neurological: Seizure Physical Exam Physical Exam General Appearance: No Apparent Distress, WD/WN Respiratory: Lungs Clear Cardiovascular: Regular Rate, Rhythm Neurologic/Psychiatric: Alert, Oriented x3, No Motor/Sensory Deficits, Depre ssed Affect Short Stay Diagnosis Discharge Diagnosis-Short Stay Admission Diagnosis Status epilepticus Final Discharge Diagnosis Status epilepticus ATX on CXR with bronchitis Conclusion Plan DC home Dr Orozco 08/11 Diagnosis/Problems Diagnosis/Problems (1) Status epilepticus (2) Atelectasis (3) Bronchitis Supervisory-Addendum Brief Verification & Attestation Participated in pt care: history, MDM, physical Personally performed: exam, history, MDM, supervision of care Care discussed with: Medical Student Procedures: n/a Results interpretation: Verified all documentation Verification and Attestation of Medical Student E/M Service A medical student performed and documented this service in my presence. I reviewed and verified all information documented by the medical student and made modifications to such information, when appropriate. I personally performed the physical exam and medical decision making. Juanis Jordan, Jun 30, 2019,07:50 [facility]ISA [facility]ACK [facility] Jun 29, 2019 11:21 JUANIS SEAMAN DO Jun 30, 2019 07:49 POS
[2019-06-29] MEDS ORDERED: RT-ALBUTEROL SULF 2.5 MG/3 ML PRE-MIX VIAL INH PRN (14:45)
[2019-06-29] MEDS ORDERED: PHENobarbital 97.2 MG (1-1/2 GRAIN) TABLET PO SCH (22:00)
[2019-06-30] MEDS ORDERED: PHENYTOIN 100 MG (DILANTIN) CAP PO SCH (06:00)
== END 2019-06-29 15:10 | disposition home or self-care (01) | DRG 101 ==
LOC: EDUNIT# 09:54 → ER FS 09:56 → ICU 12:41 → 4TH 06-29 07:40
PROVIDERS: ADMIT Internal Medicine; ATTEND Internal Medicine
PROC: 05HY33Z Insertion of Infusion Device into Upper Vein, Percutaneous Approach (ICD-10-PCS; principal; 2019-06-28)
DX: G40.901 Epilepsy, unspecified, not intractable, with status epilepticus (principal); J98.11 Atelectasis; J40 Bronchitis, not specified as acute or chronic; Z88.8 Allergy status to other drugs, medicaments and biological substances
CPT/HCPCS: 36415; 51702; 70450; 71045; 71260; 80048; 80053; 80184; 80185; 81000; 82805; 83605; 83735; 84100; 85007; 85025; 85027; 87040; 87081; 94640; 94664; 94760

== ENCOUNTER 2021-08-20 17:51 | Emergency (ER) | payer MEDICARE, MEDICAID ==
[~2021-08-20] VITALS: Ht 177 cm; Wt 100.0 kg
[~2021-08-20 17:51] MED LIST changes: +AMOX-358 PO; +MULT-567 PO; +NAPR-915 PO
--- OUTSIDE RECORDS SUMMARY | 2021-08-20 17:55 | XMS REPORT | Clinical Summary ---
Author Author [facility] Organization [facility] Address Unknown Phone Unavailable Care Team Providers Care Dental Nurse Name Role Phone Ha Dinh MD PCP Unavailable Source Comments Some departments are not documenting in the electronic medical record. If you d o not see the information that you expected, contact Release of Information in [facility] [employer] Information Management department at [phone] for further assistan ce in locating additional records.[facility] Allergies Not on File Medications Not on file Active Problems Not on file Social History Date Tobacco Use Types Packs/Day Years Used Never Assessed Sex Assigned at Date Recorded Not on file Last Filed Vital Signs Not on file Plan of Treatment Health Maintenance Due Date Last Done Comments HIV SCREENING 1973 DTAP/TDAP VACCINES (1 - 1976 Tdap) HEPATITIS C SCREENING 1976 PHYSICAL (COMPREHENSIVE) 1976 EXAM COLORECTAL CANCER 2008 SCREENING SHINGLES RECOMBINANT 2008 VACCINE (1 of 2) INFLUENZA VACCINE 03/24/2021 Results Not on filefrom Last 3 Months Care Teams Start Date End Date Dental Nurse Relationship Specialty 10/21/10 Ha Dinh MD PCP - General RETIRED 06/22/2015
[2021-08-20] MEDS ORDERED: LIDOCAINE 1% INJ 20 ML 20 ML VIAL INJ STA (18:20)
--- NOTE | 2021-08-20 20:05 | ED Upper Extremity ---
General Chief Complaint: Laceration Stated Complaint: RT HAND LAC Nursing Triage Note: Patient has presented to ER with a cc of a laceration on his right had. He cut it on the edge of an old counter top that was being removed from the house. This happened about an hour before getting to the ER. Source: patient, spouse History of Present Illness Date Seen by Provider: Aug 20, 2021 Time Seen by Provider: 19:10 Initial Comments 61-year-old male presenting with laceration to the right hand at the base of his thumb. He was trying to clean up some demolition of a kitchen that is being redone in their house. He caught his hand on a sharp edge of the [employer] countertop. He has normal sensation and movement of his thumb. He has bleeding controlled on arrival to the ED. He had a tetanus booster 2 years ago. He denies any other injuries. He did flush the wound with water at home before coming into the ED. Location Injury Occurred: Home Onset: just prior to arrival Severity: mild Pain/Injury Location: right hand Method of Injury: incised Modifying Factors: Worse With Movement Allergies and Home Medications Allergies Coded Allergies: bupropion (Verified Allergy, Severe, seizure, 10/20/18) acetaminophen (Verified Adverse Reaction, Severe, seizure, 10/20/18) escitalopram (Verified Adverse Reaction, Severe, seizure, 10/20/18) oxycodone (Verified Adverse Reaction, Severe, seizure, 10/20/18) tramadol (Verified Adverse Reaction, Severe, seizure, 10/20/18) Patient Home Medication List Home Medication List Reviewed: Yes Amoxicillin/Potassium Clav (Augmentin 875-125 Tablet) 1 Each Tablet, 1 EACH PO BID WITH MEALS Prescribed by: LUCIANO JORDAN on 06/29/19 1107 Diazepam (Diazepam) 5 Mg/1 Ml Oral.conc, 5 MG PO TID PRN for SEIZURE ACTIVITY, (Reported) Entered as Reported by: DAVID ALBARRAN on 10/20/18 1551 Multivitamin (Multivitamins) 1 Each Tablet, 1 TAB PO DAILY, (Reported) Entered as Reported by: FACUNDO GUERIN on 06/28/19 153 Naproxen (Naproxen) 500 Mg Tablet, 500 MG PO Q12H PRN for FEVER, (Reported) Entered as Reported by: FACUNDO GUERIN on 06/28/19 1539 Phenobarbital (Phenobarbital) 97.2 Mg Tablet, 194.4 MG 2200, (Reported) Entered as Reported by: DAVID ALBARRAN on 10/20/18 155 Phenytoin Sodium Extended (Dilantin) 100 Mg Capsule, 300 MG 0600, (Reported) Entered as Reported by: DAVID ALBARRAN on 10/20/18 155 Phenytoin Sodium Extended (Dilantin) 30 Mg Capsule, 30 MG 0600, (Reported) Entered as Reported by: DAVID ALBARRAN on 10/20/18 155 Tiagabine HCl (Tiagabine HCl) 12 Mg Tablet, 12 MG 0600,1400,2200, (Reported) Entered as Reported by: DAVID ALBARRAN on 10/20/181550 Review of Systems Constitutional: no symptoms reported EENTM: no symptoms reported Respiratory: no symptoms reported Cardiovascular: no symptoms reported Gastrointestinal: no symptoms reported Genitourinary: no symptoms reported Musculoskeletal: see HPI Skin: see HPI Psychiatric/Neurological: Denies Numbness, Denies Paresthesia Past Rxrqskp-Unqiml-Rfzbzy Hx Patient Social History Tobacco Use?: No Use of E-Cig and/or Vaping dev: No Substance use?: No Alcohol Use?: No Seasonal Allergies Seasonal Allergies: No Past Medical History Surgery/Hospitalization HX: Seizures Surgeries: No Respiratory: Yes ( influenza ) Pneumonia Cardiac: No Neurological: Yes Seizure Disorder Genitourinary: No Gastrointestinal: No Musculoskeletal: No Endocrine: No HEENT: No Cancer: No Psychosocial: No Integumentary: No Blood Disorders: No Family Medical History No Pertinent Family Hx Physical Exam Vital Signs Vital Signs - First Documented 08/20/21 08/20/21 18:32 20:18 Temp 36.3 Pulse 84 Resp 16 B/P (MAP) 120/76 (91) Pulse Ox 15 O2 Delivery Room Air Capillary Refill : Height, Weight, BMI Height: 6'10.00" Weight: 200lbs. oz. 90.205284rv; 31.00 BMI Method:Estimated General Appearance: WD/WN, no apparent distress HEENT: PERRL/EOMI Cardiovascular: normal peripheral pulses Wrist: Yes normal inspection, Yes non-tender, Yes no evidence of injury, Yes normal ROM Hand: normal ROM, Right, laceration (Laceration to the right hand at the base of his thumb), soft tissue tenderness (Mild tenderness around the laceration to the right hand at the base of his thumb) Neurologic/Tendon: normal sensation, normal motor functions, normal tendon functions Neurologic/Psychiatric: certified medical records coder II-XII nml as tested, no motor/sensory deficits, alert, normal mood/affect, oriented x 3 Skin: normal color, warm/dry Procedures/Interventions Wound Location: Upper Extremities (Right hand at the base of his thumb) Wound Length (cm): 3.2 Wound's Depth, Shape: linear, sub Q Wound Explored: clean Anesthesia: 1% Lidocaine Volume Anesthetic (ccs): 6 Suture: Ethlion Suture Size: 4-0 Number of Sutures: 7 Layer Closure?: 1 Sterile Dressing Applied?: Yes Progress After obtaining verbal consent from the patient and spouse the wound was anesthetized with 1% plain lidocaine. Then using chlorhexidine scrub soap and sterile water the wound was cleaned with gauze and explored to evaluate for foreign bodies. There were no foreign body seen or visualized. Using 4-0 Ethilon a total of 7 simple interrupted stitches were placed. This resulted in the wound edges being well approximated. Patient tolerated procedure well without any immediate complications. Counseled on follow-up and return precautions. Advised to have the stitches out in approximately 14 days or longer. Progress/Results/Core Measures Results/Orders My Orders Orders - YARITZA ANGEL MD Suture Set At Bedside (08/20/21 18:20) Wound Dressing-Ed (08/20/21 18:20) Lidocaine 1% Inj 20 Ml (Xylocaine 1% Inj (08/20/21 18:20) Vital Signs/I&O 08/20/21 08/20/21 18:32 20:18 Temp 36.3 Pulse 84 73 Resp 16 18 B/P (MAP) 120/76 (91) 126/70 Pulse Ox 15 O2 Delivery Room Air Room Air Blood Pressure Mean: 91 Progress Progress Note : Progress Note ModerateVerbally consented for wound repair with stitches. Procedure well witho ut any immediate complications. Counseled on follow-up and return precautions. Advised to have the stitches out in 14 days or longer. Departure Impression Primary Impression: Laceration of right hand without foreign body Qualified Codes: S61.411A - Laceration without foreign body of right hand, initial encounter Disposition: 01 HOME, SELF-CARE Condition: Stable Departure-Patient Inst. Decision time for Depature: 20:03 Referrals: DARVIN PASTRANA MD (PCP/Family) Primary Care Physician Patient Instructions: Laceration Repair With Stitches ED Add. Discharge Instructions: Keep wound clean and dry for first 24 hours then may wash with soap and water. Use acetaminophen or ibuprofen if needed for pain. After his first 24 hours when you start cleaning the wound you could apply antibiotic ointment 2-3 times a day as needed. Cover the wound if it might get dirty. The stitches would need to come out after 14 days. If you have signs of infection such as redness streaking up your hand and wrist, fever over 101 Fahrenheit or pus draining from the wound then be seen sooner so that you could have the wound evaluated and be started on antibiotics for infection All discharge instructions reviewed with patient and/or family. Voiced understanding. YARITZA ANGEL MD Aug 20, 2021 20:04
[2021-08-20 20:18] VITALS: BP 126/70
== END 2021-08-20 20:18 | disposition home or self-care (01) ==
LOC: EDUNIT# 17:51 → ER FS 17:52
DX: S61.011A Laceration without foreign body of right thumb without damage to nail, initial encounter (principal); G40.909 Epilepsy, unspecified, not intractable, without status epilepticus; Z88.5 Allergy status to narcotic agent; Z88.8 Allergy status to other drugs, medicaments and biological substances; Z79.899 Other long term (current) drug therapy; W45.8XXA Other foreign body or object entering through skin, initial encounter
CPT/HCPCS: 99282

== ENCOUNTER 2021-09-01 11:21 | Emergency (ER) | payer MEDICARE, MEDICAID ==
[~2021-09-01] VITALS: Ht 177.8 cm; Wt 92.9 kg
[2021-09-01 11:25] VITALS: BP 136/62
== END 2021-09-01 11:40 | disposition home or self-care (01) ==
LOC: EDUNIT# 11:21 → ER FS 11:22
DX: Z48.02 Encounter for removal of sutures (principal)

== ENCOUNTER 2022-03-24 16:33 | Inpatient (IN) | payer MEDICARE, MEDICAID ==
[~2022-03-24] VITALS: Ht 177 cm; Wt 96.0 kg
[~2022-03-24 16:33] MED LIST changes: -PHEN97.2; +PHEN97.2 PO
[2022-03-24 17:20] LABS: BASOPHILS % (AUTO) 0 % (0-10); EOSINOPHILS % (AUTO) 0 % (0-10); HEMATOCRIT 40 % (40-54); HEMOGLOBIN 13.8 g/dL (13.3-17.7); LYMPHOCYTES # (AUTO) 1.1 10^3/uL (1.0-4.0); LYMPHOCYTES % (AUTO) 6 % (12-44); MEAN CORPUSCULAR HEMOGLOBIN 32 pg (25-34); MEAN CORPUSCULAR HGB CONC 35 g/dL (32-36); MEAN CORPUSCULAR VOLUME 92 fL (80-99); MEAN PLATELET VOLUME 9.9 fL (9.0-12.2); MONOCYTES # (AUTO) 1.4 10^3/uL (0.0-1.0); MONOCYTES % (AUTO) 8 % (0-12); NEUTROPHILS # (AUTO) 15.5 10^3/uL (1.8-7.8); NEUTROPHILS % (AUTO) 86 % (42-75); PLATELET COUNT 289 10^3/uL (130-400); WHITE BLOOD COUNT 18.1 10^3/uL (4.3-11.0)
[2022-03-24 17:24] LABS: OCCULT BLOOD,GASTRIC FLUID POSITIVE (NEGATIVE)
[2022-03-24 17:44] LABS: INR 1.1 (0.8-1.4); PROTHROMBIN TIME PATIENT 14.2 SEC (12.2-14.7)
[2022-03-24] MEDS ORDERED: PANTOPRAZOLE 40 MG (PROTONIX) VIAL IV ONE (17:45)
[2022-03-24 17:47] LABS: BILIRUBIN,TOTAL 0.4 MG/DL (0.1-1.0); CALCIUM 9.1 MG/DL (8.5-10.1); CREATININE SERUM 0.93 MG/DL (0.60-1.30); POTASSIUM 4.3 MMOL/L (3.6-5.0)
[2022-03-24 17:47] LABS: BILIRUBIN,URINE NEGATIVE (NEGATIVE); CLARITY,URINE SL CLOUDY; COLOR,URINE YELLOW; GLUCOSE, URINE (UA) NEGATIVE (NEGATIVE); KETONES,URINE NEGATIVE (NEGATIVE); LEUKOCYTE ESTERASE ,URINE TRACE (NEGATIVE); NITRITE,URINE NEGATIVE (NEGATIVE); PH,URINE 7.5 (5-9); PROTEIN,URINE TRACE (NEGATIVE)
[2022-03-24 17:48] LABS: ALBUMIN 3.8 GM/DL (3.2-4.5); TOTAL PROTEIN 7.1 GM/DL (6.4-8.2)
[2022-03-24] MEDS ORDERED: NS IV 1000 ML 1,000 ML IV SCH ×2 (18:00→19:30)
[2022-03-24 18:16] LABS: BAND NEUTROPHILS 5 %; BASOPHILS % (MANUAL) 0 %; EOSINOPHILS % (MANUAL) 0 %; LYMPHOCYTES % (MANUAL) 5 %; MONOCYTES % (MANUAL) 12 %; NEUTROPHILS % (MANUAL) 78 %; PLATELET ESTIMATE NORMAL; TARGET CELLS SLIGHT
[2022-03-24 18:17] LABS: BACTERIA,URINE MODERATE /HPF; RBC,URINE 0-2 /HPF; SQUAMOUS EPITHELIAL CELL,UR >50 /HPF
--- NOTE | 2022-03-24 18:40 | Diagnostic Imaging Report ---
INDICATION: Altered mental status, seizure. TECHNIQUE: Multiple contiguous axial images were obtained through the brain without the use of intravenous contrast. Auto Exposure Controls were utilized during the CT exam to meet ALARA standards for radiation dose reduction. Comparison made to 06/28/2019. There were no extra-axial fluid collections. No intracranial hemorrhage. No intracranial mass or mass effect. No midline shift. The ventricles are normal in size and position. There were no focal parenchymal abnormalities in the brain. Calvarial windows are unremarkable. IMPRESSION: No acute intracranial abnormality. Dictated by: Dictated on workstation # [id number]
--- NOTE | 2022-03-24 18:42 | Diagnostic Imaging Report ---
INDICATION: Fever Frontal chest obtained at 0618 p.m. and compared to 06/29/2019. Heart is mildly enlarged. Mediastinal silhouette is unremarkable. There is some patchy infiltrate in the right perihilar region as well as in the left perihilar region. There is no pneumothorax or pleural fluid. IMPRESSION: Patchy perihilar infiltrates, left greater than right, pneumonia not excluded. There is no pneumothorax or pleural fluid. Follow-up is recommended. Dictated by: Dictated on workstation # [id number]
--- NOTE | 2022-03-24 18:51 | Diagnostic Imaging Report ---
INDICATION: Fever, vomiting blood TECHNIQUE: Multiple contiguous axial images were obtained through the abdomen and pelvis without the use of intravenous contrast. Auto Exposure Controls were utilized during the CT exam to meet ALARA standards for radiation dose reduction. There is no prior CT for comparison. The visualized portions of the lung bases show some patchy infiltrate in the left base. There is motion artifact. There is no pleural fluid. There is no free intraperitoneal air. There are postoperative changes in the anterior abdominal wall. The liver shows no definite lesion but the evaluation of the liver is limited due to motion artifact. Gallbladder appears normal. The spleen was not enlarged. The kidneys bilaterally appear unremarkable. The adrenals and pancreas appear normal. There is diffuse distention of small bowel loops with apparent zone of transition in the right lower quadrant. The colon is not distended. There is evidence of vertebral body hemangioma at L4. IMPRESSION: Findings suspicious for small bowel obstruction with zone of transition in the right lower quadrant. No evidence of free air or abscess. Portions of the study limited due to motion artifact. There is some infiltrate in the left lung base. Dictated by: Dictated on workstation # [id number]
[2022-03-24] MEDS ORDERED: PIPERACILLIN SODIUM/TAZOBACTAM 4.5 GM in NS (IVPB) 100 ML IV ONE (19:30)
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
[2022-03-24] MEDS ORDERED: NS IV 1000 ML 1,000 ML ONE (22:16)
[2022-03-24] MEDS ORDERED: RT-ALBUTEROL/IPRATROPIUM 3 ML (DUONEB) VIAL INH PRN ×2 (23:00)
--- NOTE | 2022-03-24 23:21 | Tele-ICU Consult ---
History of Present Illness History of Present Illness Date Seen by Provider: Mar 24, 2022 Time Seen by Provider: 23:13 History of Present Illness 61 yo M came to ED wtih Sz and vomiting blood, Sz lasted about 20 min, Has Hx of Sz PMH Surgery for SBO in past WBC elevated at 18k, BMP ok, LFT's ok, LA normal at 1.12 In ED started on IV Zosyn, CXR showed bilateral PNA, CT abd showed possible SBO in RLQ, CT head read as normal Takes Valium at home PRN Sz and phenobarbital 194 mg at night, Dilantin 300 mg in am, This will be changed to PB, Kepra-500 mg tonight, Has not had any more Sz. According to has been taking meds for Sz. chart lists many meds that cause Sz, bupropion, Lexapro, oxycodone, tramadol Allergies and Home Medications Allergies Coded Allergies: bupropion (Verified Allergy, Severe, seizure, 10/20/18) acetaminophen (Verified Adverse Reaction, Severe, seizure, 10/20/18) escitalopram (Verified Adverse Reaction, Severe, seizure, 10/20/18) oxycodone (Verified Adverse Reaction, Severe, seizure, 10/20/18) tramadol (Verified Adverse Reaction, Severe, seizure, 10/20/18) Home Medications Amoxicillin/Potassium Clav 1 Each Tablet, 1 EACH PO BID WITH MEALS Prescribed by: ULCIANO JORDAN on 06/29/19 1107 Clobazam 10 Mg Tablet, 10 MG PO BID, (Reported) Diazepam 5 Mg/1 Ml Oral.conc, 5 MG PO TID PRN for SEIZURE ACTIVITY, (Reported) Lacosamide 200 Mg Tablet, 2 MG PO TID, (Reported) Melatonin/Pyridoxine 5 Mg-1 Mg Tablet, 1 EACH PO HS Prescribed by: NEDA ONTIVEROS on 03/24/22 2345 Multivitamin 1 Each Tablet, 1 TAB PO DAILY, (Reported) Naproxen 500 Mg Tablet, 500 MG PO Q12H PRN for FEVER, (Reported) Phenobarbital 97.2 Mg Tablet, 194.4 MG 2200, (Reported) TAKES 2 (97.2MG) TABLETS Tiagabine HCl 12 Mg Tablet, 12 MG 0600,1400,2200, (Reported) Past Medical/Social/Family Hx Patient Social History Tobacco Use?: No Use of E-Cig and/or Vaping dev: No Substance use?: No Alcohol Use?: No Pt stated abuse/neglect: Unable to obtain Current Status Communicates: Verbally Primary Language: Yoruba Preferred Spoken Language: Yoruba Is interpretation needed?: No Review of Systems Constitutional: see HPI EENTM: see HPI Respiratory: see HPI Cardiovascular: see HPI Gastrointestinal: see HPI Genitourinary: see HPI Musculoskeletal: see HPI Skin: see HPI Psychiatric/Neurological: See HPI All Other Systems Reviewed Negative Unless Noted: Yes Focused Exam Lactate Level 03/24/22 17:55: Lactic Acid Level 1.12 Height, Weight, BMI Height: 6'10.00" Weight: 200lbs. oz. 90.277996kw; 30.64 BMI Method:Estimated Exam Exam Patient acknowledged, consented, and participated in this virtual visit which was conducted using real time audio/video Vital Signs Date Time Temp Pulse Resp B/P (MAP) Pulse Ox O2 Delivery O2 Flow Rate FiO2 03/24/22 23:00 98 20 101/63 94 Room Air 03/24/22 22:49 94 Room Air 03/24/22 22:30 93 21 97/60 93 Room Air 03/24/22 22:15 106 03/24/22 22:15 37.0 103 21 133/79 95 Room Air 03/24/22 21:04 103 18 108/63 92 Room Air 03/24/22 16:56 37.0 117 18 103/61 (75) 93 Room Air Height & Weight Height: 6'10.00" Weight: 200lbs. oz. 90.796943sv; 30.64 BMI Method:Estimated General Appearance: No Apparent Distress, Mild Distress, Other (Confused, febrile.) HEENT: PERRL/EOMI, Normal ENT Inspection, Other (Dry oral mucosa) Neck: Full Range of Motion, Normal Inspection Respiratory: Chest Non Tender, No Accessory Muscle Use, No Respiratory Distress, Rales, Rhonci Cardiovascular: Regular Rate, Rhythm, No Murmur, Normal Peripheral Pulses, Tachycardia Gastrointestinal: normal bowel sounds, other (mild distension according to RN) Extremity: Normal Range of Motion Neurologic/Psychiatric: Alert, Other (Oriented x1) Skin: Normal Color, Warm/Dry Results Lab Laboratory Tests 03/24/22 16:50 Assessment/Plan Assessment/Plan Sz in pt with previous Sz Hx, will continue on PB and Kepra, Not clear if really had GI bleed but will follow Hb, Due to CT abd report, would repeat KUB in am., LA being normal is against serious obst Spoke to construction mgr: Critically Ill Patient Time spent with patient (mins): 30 VICTOR MANUEL WELLINGTON MD Mar 24, 2022 23:21
[2022-03-24] MEDS ORDERED: DIAZEPAM INJ 10 MG/2 ML (VALIUM) SYR IVP PRN (23:30)
[2022-03-24] MEDS ORDERED: LORazepam PO (23:44)
[2022-03-24] MEDS ORDERED: LACO200T2 PO (23:44)
[2022-03-24] MEDS ORDERED: CLOB10TA17 PO (23:44)
[2022-03-24] MEDS ORDERED: MELA1TAB15 PO (23:45)
--- NOTE | 2022-03-25 01:09 | Progress Note ---
Standard Progress Note Progress Notes/Assess & Plan Date Seen by a Provider: Mar 25, 2022 Time Seen by a Provider: 01:08 Progress/Assessment & Plan will order lactate and blood cultures VICTOR MANUEL WELLINGTON MD Mar 25, 2022 01:09
[2022-03-25] MEDS: PIPERACILLIN SODIUM/TAZOBACTAM 4.5 GM in NS (IVPB) 100 ML IV SCH ×3 (01:16→17:32)
[2022-03-25] MEDS ORDERED: NS IV 1000 ML 1,000 ML ONE (05:36)
[2022-03-25] MEDS: NS IV 1000 ML 1,000 ML IV SCH ×3 (05:49→17:32)
[2022-03-25 06:00] LABS: BASOPHILS % (AUTO) 0 % (0-10); EOSINOPHILS # (AUTO) 0.2 10^3/uL (0.0-0.3); EOSINOPHILS % (AUTO) 1 % (0-10); HEMATOCRIT 38 % (40-54); HEMOGLOBIN 12.4 g/dL (13.3-17.7); LYMPHOCYTES # (AUTO) 2.1 10^3/uL (1.0-4.0); LYMPHOCYTES % (AUTO) 17 % (12-44); MEAN CORPUSCULAR HEMOGLOBIN 31 pg (25-34); MEAN CORPUSCULAR HGB CONC 33 g/dL (32-36); MEAN CORPUSCULAR VOLUME 97 fL (80-99); MEAN PLATELET VOLUME 10.2 fL (9.0-12.2); MONOCYTES # (AUTO) 1.5 10^3/uL (0.0-1.0); MONOCYTES % (AUTO) 12 % (0-12); NEUTROPHILS # (AUTO) 8.9 10^3/uL (1.8-7.8); NEUTROPHILS % (AUTO) 69 % (42-75); PLATELET COUNT 196 10^3/uL (130-400); WHITE BLOOD COUNT 12.8 10^3/uL (4.3-11.0)
[2022-03-25 06:11] LABS: POTASSIUM 4.7 MMOL/L (3.6-5.0)
[2022-03-25] MEDS ORDERED: NS IV 500 ML 500 ML IV PRN (06:15)
[2022-03-25 06:17] LABS: CREATININE SERUM 0.98 MG/DL (0.60-1.30)
--- NOTE | 2022-03-25 08:08 | Consultation - Surgery ---
CARLEY HER 03/25/22 0808: History of Present Illness History of Present Illness Patient Consulted On(carmen/time) 03/25/22 08:07 Date Seen by Provider: Mar 25, 2022 Time Seen by Provider: 08:07 Reason for Visit: Grand Mal Seizure History of Present Illness Patient is a new consult from Dr. Alejo. Patient is a 61 y/o M with history of seizures since the age of 11. He also has a hx of sleep apnea (on CPAP) and pneumonia in 2019. Patient reports grand mal seizure at 7:20 AM yesterday which was witnessed by his . She also reports coffee ground emesis by the patient later in the day at 2 PM yesterday. Patient denies any pain currently and is resting. Denies any SOB, CP or diarrhea at this time. CT Chest shows right and left lobe patchy infiltrates, worse in the left lobe. CT Abd/Pelvis shows possible small bowel obstruction, but patient reports flatus today. Gastric occu lt blood positive. Recommended EGD/colonoscopy to patient and stated he has never had a colonoscopy due to his neurologist's concerns for seizure exacerbation. Allergies and Home Medications Allergies Coded Allergies: bupropion (Verified Allergy, Severe, seizure, 10/20/18) acetaminophen (Verified Adverse Reaction, Severe, seizure, 10/20/18) escitalopram (Verified Adverse Reaction, Severe, seizure, 10/20/18) oxycodone (Verified Adverse Reaction, Severe, seizure, 10/20/18) tramadol (Verified Adverse Reaction, Severe, seizure, 10/20/18) Patient Home Medication List Home Medication List Reviewed: Yes Clobazam (Clobazam) 10 Mg Tablet, 10 MG PO BID, (Reported) Entered as Reported by: NEDA ONTIVEROS on 03/24/222343 Last Action: Reviewed Lacosamide (Vimpat) 200 Mg Tablet, 200 MG PO 0700,1500,2300, (Reported) Entered as Reported by: NEDA ONTIVEROS on 03/24/222343 Last Action: Reviewed Lorazepam (Ativan) 0.5 Mg Tablet, 0.5-1 MG PO HS, (Reported) Entered as Reported by: ASHKAN BERNAL on 03/25/22 4644 Last Action: Reviewed Lorazepam (Lorazepam) 2 Mg/Ml Oral.conc, 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, (Reported) Entered as Reported by: ASHKAN BERNAL on 03/25/22 1144 Last Action: Reviewed Melatonin (Melatonin) 10 Mg Tablet, 10 MG PO HS, (Reported) Entered as Reported by: ASHKAN BERNAL on 03/25/22 1144 Last Action: Reviewed Phenobarbital (Phenobarbital) 97.2 Mg Tablet, 194.4 MG PO HS, (Reported) Entered as Reported by: DAVID ALBARRAN on 10/20/18 155 Last Action: Reviewed Tiagabine HCl (Tiagabine HCl) 12 Mg Tablet, 12 MG 0700,1500, (Reported) Entered as Reported by: DAVID ALBARRAN on 10/20/18 155 Last Action: Reviewed Tiagabine HCl (Tiagabine HCl) 12 Mg Tablet, 24 MG PO HS, (Reported) Entered as Reported by: ASHKAN BERNAL on 03/25/22 1158 Last Action: Reviewed Discontinued Medications Amoxicillin/Potassium Clav (Augmentin 875-125 Tablet) 1 Each Tablet, 1 EACH PO BID WITH MEALS Discontinued Reason: Duplicate Order Prescribed by: LUCIANO JORDAN on 06/29/19 1107 Last Action: Discontinued Diazepam (Diazepam) 5 Mg/1 Ml Oral.conc, 5 MG PO TID PRN for SEIZURE ACTIVITY, (Reported) Discontinued Reason: No Longer Taking Entered as Reported by: DAVID ALBARRAN on 10/20/181550 Last Action: Discontinued Melatonin/Pyridoxine (Melatonin 5 mg Tablet) 5 Mg-1 Mg Tablet, 1 EACH PO HS Discontinued Reason: Duplicate Order Prescribed by: NEDA ONTIVEROS on 03/24/22 2562 Last Action: Discontinued Multivitamin (Multivitamins) 1 Each Tablet, 1 TAB PO DAILY, (Reported) Discontinued Reason: No Longer Taking Entered as Reported by: FACUNDO GUERIN on 06/28/19 169 Last Action: Discontinued Naproxen (Naproxen) 500 Mg Tablet, 500 MG PO Q12H PRN for FEVER, (Reported) Discontinued Reason: No Longer Taking Entered as Reported by: FACUNDO GUERIN on 06/28/191538 Last Action: Discontinued [LORazepam] LORAZEM , 0.05 MG PO, (Reported) Discontinued Reason: Duplicate Order Entered as Reported by: NEDA ONTIVEROS on 03/24/22 9130 Last Action: Discontinued Past Kdppekb-Ocnaln-Injecv Hx Patient Social History 2nd Hand Smoke Exposure: No Recent Hopitalizations: No Alcohol Use?: No Seasonal Allergies Seasonal Allergies: No Surgeries History of Surgeries: Yes Surgeries: Abdominal (splenectomy per ) Respiratory History of Respiratory Disorde: Yes ( influenza ) Respiratory Disorders: Pneumonia Cardiovascular History of Cardiac Disorders: No Neurological History of Neurological Disord: Yes Neurological Disorders: Seizure Disorder (since age 11 ) Genitourinary History of Genitourinary Disor: No Gastrointestinal History of Gastrointestinal Di: No Musculoskeletal History of Musculoskeletal Dis: No Endocrine History of Endocrine Disorders: No HEENT History of HEENT Disorders: No Cancer History of Cancer: No Psychosocial History of Psychiatric Problem: No Integumentary History of Skin or Integumenta: No Blood Transfusions History of Blood Disorders: No Family Medical History Significant Family History: No Pertinent Family Hx Review of Systems-General Constitutional: No chills, No dizziness, No fever EENTM: No hearing loss, No vision loss Respiratory: No cough; hemoptysis (coffee ground emesis); No short of breath Cardiovascular: No chest pain, No palpitations Gastrointestinal: abdominal pain (mild LUQ pain); No diarrhea Genitourinary: No discharge, No hematuria Musculoskeletal: No back pain, No joint pain Skin: No change in color, No pruritus, No rash Psychiatric/Neurological: Denies Anxiety, Denies Depressed; Seizure All Other Systems Reviewed Negative Unless Noted: Yes Physical Exam-General Problems Physical Exam Vital Signs Vital Signs - First Documented 03/24/22 03/25/22 16:56 07:26 Temp 37.0 Pulse 117 Resp 18 B/P (MAP) 103/61 (75) Pulse Ox 93 O2 Delivery Room Air O2 Flow Rate 3.00 Capillary Refill : General Appearance: WD/WN, no apparent distress HEENT: PERRL/EOMI Respiratory: chest non-tender, decreased breath sounds Cardiovascular: regular rate, rhythm, no murmur Gastrointestinal: soft, abnormal bowel sounds (absent), tenderness (mild t enderness to LUQ when palpated) Neurologic/Psychiatric: normal mood/affect Skin: No rash Data Review Labs Laboratory Tests 03/24/22 16:50: White Blood Count 18.1H, Red Blood Count 4.34, Hemoglobin 13.8, Hematocrit 40, Mean Corpuscular Volume 92, Mean Corpuscular Hemoglobin 32, Mean Corpuscular H emoglobin Concent 35, Red Cell Distribution Width 13.7, Platelet Count 289, Mean Platelet Volume 9.9, Immature Granulocyte % (Auto) 0, Neutrophils (%) (Auto) 86H, Lymphocytes (%) (Auto) 6L, Monocytes (%) (Auto) 8, Eosinophils (%) (Auto) 0, Basophils (%) (Auto) 0, Neutrophils # (Auto) 15.5H, Lymphocytes # (Auto) 1.1, Monocytes # (Auto) 1.4H, Eosinophils # (Auto) 0.0, Basophils # (Auto) 0.0, Immature Granulocyte # (Auto) 0.1, Neutrophils % (Manual) 78, Lymphocytes % (Manual) 5, Monocytes % (Manual) 12, Eosinophils % (Manual) 0, Basophils % (Manual) 0, Band Neutrophils 5, Platelet Estimate NORMAL, Target Cells SLIGHT, Prothrombin Time 14.2, INR Comment 1.1, Activated Partial Thromboplast Time 29, Gastric Fluid Occult Blood POSITIVEH, Sodium Level 135, Potassium Level 4.3, Chloride Level 101, Carbon Dioxide Level 22, Anion Gap 12, Blood Urea Nitrogen 15, Creatinine 0.93, Estimat Glomerular Filtration Rate 92, BUN/Creatinine Ratio 16, Glucose Level 126H, Calcium Level 9.1, Corrected Calcium 9.3, Total Bilirubin 0.4, Aspartate Amino Transf (AST/SGOT) 23, Alanine Aminotransferase (ALT/SGPT) 19, Alkaline Phosphatase 140H, Total Protein 7.1, Albumin 3.8, Lipase 9 03/24/22 17:39: Urine Color YELLOW, Urine Clarity SL CLOUDY, Urine pH 7.5, Urine Specific Temple 1.010L, Urine Protein TRACEH, Urine Glucose (UA) NEGATIVE, Urine Ketones NEGATIVE, Urine Nitrite NEGATIVE, Urine Bilirubin NEGATIVE, Urine Urobilinogen 1.0, Urine Leukocyte Esterase TRACEH, Urine RBC (Auto) TRACE-IH, Urine RBC 0-2, Urine WBC 10-25H, Urine Squamous Epithelial Cells >50H, Urine Crystals NONE, Urine Bacteria MODERATEH, Urine Casts NONE, Urine Mucus MODERATEH, Urine Culture Indicated YES 03/24/22 17:55: Lactic Acid Level 1.12, SARS-CoV-2 RNA (RT-PCR) Not Detected 03/25/22 05:50: White Blood Count 12.8H, Red Blood Count 3.96L, Hemoglobin 12.4L, Hematocrit 38L , Mean Corpuscular Volume 97, Mean Corpuscular Hemoglobin 31, Mean Corpuscular Hemoglobin Concent 33, Red Cell Distribution Width 14.3, Platelet Count 196, Mean Platelet Volume 10.2, Immature Granulocyte % (Auto) 0, Neutrophils (%) (Auto) 69, Lymphocytes (%) (Auto) 17, Monocytes (%) (Auto) 12, Eosinophils (%) (Auto) 1, Basophils (%) (Auto) 0, Neutrophils # (Auto) 8.9H, Lymphocytes # (Auto) 2.1, Monocytes # (Auto) 1.5H, Eosinophils # (Auto) 0.2, Basophils # (Auto) 0.0, Immature Granulocyte # (Auto) 0.0, Sodium Level 137, Potassium Level 4.7, Chloride Level 109H, Carbon Dioxide Level 18L, Anion Gap 10, Blood Urea Nitrogen 14, Creatinine 0.98, Estimat Glomerular Filtration Rate 87, BUN/Creatinine Ratio 14, Glucose Level 94, Calcium Level 8.0L Assessment/Plan Assessment/Plan Assessment/Plan Grand Mal Seizure Pneumonia Start clear liquid diet and see if patient is able to tolerate. Recommended EGD and Colonoscopy to patient. Will continue to discuss tomorrow. AIYANA CLINE DO 03/25/221954: History of Present Illness History of Present Illness History of Present Illness Con's request with Dr. Alejo for partial small bowel obstruction. Patient 61-year-old male with history of grand mal and petit mall seizures. He has had these since the age of 11. Patient yesterday morning had a seizure. He was followed to have coffee-ground emesis. He was nauseated as well. Prior to that he had not been having any issues. Patient was admitted last night. He states he is feeling better. He has had no nausea or vomiting. He is passing flatus. He is currently NPO. Patient not having any abdominal pain. Denies fever sweats chills shortness of breath or chest pain at this time. Patient has CT scan which was suggestive of a partial small bowel obstruction. Patient gastric occult was positive. Patient is never had EGD or colonoscopy. Patient states that he was recommended not to have colonoscopy due to the possibility of causing seizure. Patient with no other complaints at this time. Allergies and Home Medications Allergies Coded Allergies: bupropion (Verified Allergy, Severe, seizure, 10/20/18) acetaminophen (Verified Adverse Reaction, Severe, seizure, 10/20/18) escitalopram (Verified Adverse Reaction, Severe, seizure, 10/20/18) oxycodone (Verified Adverse Reaction, Severe, seizure, 10/20/18) tramadol (Verified Adverse Reaction, Severe, seizure, 10/20/18) Patient Home Medication List Home Medication List Reviewed: Yes Clobazam (Clobazam) 10 Mg Tablet, 10 MG PO BID, (Reported) Entered as Reported by: NEDA ONTIVEROS on 03/24/222343 Last Action: Reviewed Lacosamide (Vimpat) 200 Mg Tablet, 200 MG PO 0700,1500,2300, (Reported) Entered as Reported by: NEDA ONTIVEROS on 03/24/222343 Last Action: Reviewed Lorazepam (Ativan) 0.5 Mg Tablet, 0.5-1 MG PO HS, (Reported) Entered as Reported by: ASHKAN BERNAL on 03/25/22 114 Last Action: Reviewed Lorazepam (Lorazepam) 2 Mg/Ml Oral.conc, 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, (Reported) Entered as Reported by: ASHKAN BERNAL on 03/25/22 114 Last Action: Reviewed Melatonin (Melatonin) 10 Mg Tablet, 10 MG PO HS, (Reported) Entered as Reported by: ASHKAN BERNAL on 03/25/221143 Last Action: Reviewed Phenobarbital (Phenobarbital) 97.2 Mg Tablet, 194.4 MG PO HS, (Reported) Entered as Reported by: DAVID ALBARRAN on 10/20/18 155 Last Action: Reviewed Tiagabine HCl (Tiagabine HCl) 12 Mg Tablet, 12 MG 0700,1500, (Reported) Entered as Reported by: DAVID ALBARRAN on 10/20/18 155 Last Action: Reviewed Tiagabine HCl (Tiagabine HCl) 12 Mg Tablet, 24 MG PO HS, (Reported) Entered as Reported by: ASHKAN BERNAL on 03/25/22 1158 Last Action: Reviewed Discontinued Medications Amoxicillin/Potassium Clav (Augmentin 875-125 Tablet) 1 Each Tablet, 1 EACH PO BID WITH MEALS Discontinued Reason: Duplicate Order Prescribed by: LUCIANO JORDAN on 06/29/19 1107 Last Action: Discontinued Diazepam (Diazepam) 5 Mg/1 Ml Oral.conc, 5 MG PO TID PRN for SEIZURE ACTIVITY, (Reported) Discontinued Reason: No Longer Taking Entered as Reported by: DAVID ALBARRAN on 10/20/18 1551 Last Action: Discontinued Melatonin/Pyridoxine (Melatonin 5 mg Tablet) 5 Mg-1 Mg Tablet, 1 EACH PO HS Discontinued Reason: Duplicate Order Prescribed by: NEDA ONTIVEROS on 03/24/22 2345 Last Action: Discontinued Multivitamin (Multivitamins) 1 Each Tablet, 1 TAB PO DAILY, (Reported) Discontinued Reason: No Longer Taking Entered as Reported by: FACUNDO GUERIN on 06/28/19 153 Last Action: Discontinued Naproxen (Naproxen) 500 Mg Tablet, 500 MG PO Q12H PRN for FEVER, (Reported) Discontinued Reason: No Longer Taking Entered as Reported by: FACUNDO GUERIN on 06/28/19 153 Last Action: Discontinued [LORazepam] LORAZEM , 0.05 MG PO, (Reported) Discontinued Reason: Duplicate Order Entered as Reported by: NEDA ONTIVEROS on 03/24/22 Last Action: Discontinued Past Dvhdxjx-Aokawy-Tsvfuc Hx Patient Social History Smoking Status: Never a Smoker Alcohol Use?: No Surgeries History of Surgeries: Yes Surgeries: Abdominal (splenectomy per ) Reviewed Nursing Assessment Reviewed/Agree w Nursing PMH: Yes Family Medical History Significant Family History: No Pertinent Family Hx Review of Systems-General Constitutional: No chills, No dizziness, No fever EENTM: No hearing loss, No blurred vision, No double vision, No vision loss Respiratory: No cough, No short of breath Cardiovascular: No chest pain, No palpitations Gastrointestinal: abdominal pain (mild LUQ pain); No diarrhea; nausea, vomiting Genitourinary: No discharge, No hematuria Musculoskeletal: back pain; No joint pain Skin: No change in color, No pruritus, No rash Psychiatric/Neurological: Denies Anxiety, Denies Depressed, Denies Emotional Problems; Seizure All Other Systems Reviewed Negative Unless Noted: Yes (Negative excepted noted.) Physical Exam-General Problems Physical Exam General Appearance: WD/WN, no apparent distress HEENT: PERRL/EOMI, normal ENT inspection Neck: non-tender, supple Respiratory: chest non-tender, no respiratory distress, no accessory muscle use Cardiovascular: regular rate, rhythm, no JVD Gastrointestinal: non tender, soft; No distended, No tenderness (mild tenderness to LUQ when palpated) Rectal: deferred Back: no CVA tenderness, no vertebral tenderness Extremities: non-tender, normal inspection Neurologic/Psychiatric: alert, normal mood/affect, oriented x 3 Skin: normal color, warm/dry Lymphatic: no adenopathy Assessment/Plan Assessment/Plan Assessment/Plan Seizure Partial small bowel obstruction Nausea and vomiting Occult positive emesis Patient currently passing flatus and not having any abdominal pain or distention. I think patient CT scan findings demonstrating partial small bowel obstruction has resolved. Patient wanting to start diet. We will start him on clear liquids and see how he tolerates. Discussed with patient that he is never had a colonoscopy would recommend EGD colonoscopy in the near future. Instructed him to discuss with his neurologist who he states is told him previously not to get 1. If patient tolerates liquids today and doing well tomorrow would slowly advance diet. If becomes nauseated or vomiting would make n.p.o. Supervisory-Addendum Brief Verification & Attestation Participated in pt care: history, MDM, physical Personally performed: exam, history, MDM, supervision of care Care discussed with: Medical Student Procedures: n/a Results interpretation: Verified all documentation Verification and Attestation of Medical Student E/M Service A medical student performed and documented this service in my presence. I reviewed and verified all information documented by the medical student and made modifications to such information, when appropriate. I personally performed the physical exam and medical decision making. Aiyana Cline, Mar 25, 2022,19:55 CARLEY HER Mar 25, 2022 08:08 AIYANA CLINE DO Mar 25, 2022 19:55
[2022-03-25] MEDS: PANTOPRAZOLE 40 MG (PROTONIX) VIAL IV SCH ×2 (08:35→20:20)
--- NOTE | 2022-03-25 11:02 | History & Physical ---
HPI History of Present Illness: 61 yo M that presents with increasing frequency of sz, vomiting with coffee ground emesis and abdominal pain. States that it started over the weekend. He ate of [employer] on thursday and new grill on thursday. States that he did not eat anything out of the ordinary for him. He has not had any similar episodes in the past but states he has had a SBO previously that resolved with bowel rest. Denies missing any medications but states that his PCP has added a new seizure medication in the last month. States that pain is better this AM. No futher N/V since arriving at hospital. Source: patient, spouse Exam Limitations: no limitations Date seen by provider: Mar 25, 2022 Time Seen by Provider: 09:45 Attending Physician Asher Mack MD PCP Admitting Physician: Jacinto Alejo MD Attending Physician: Jacinto Alejo MD Consult Date of Admission Mar 24, 2022 at 22:04 Home Medications Home Medications Reviewed patient Home Medication Reconciliation performed by pharmacy medication reconciliations shampoo technician and/or nursing. Patients Allergies have been reviewed. Allergies Coded Allergies: bupropion (Verified Allergy, Severe, seizure, 10/20/18) acetaminophen (Verified Adverse Reaction, Severe, seizure, 10/20/18) escitalopram (Verified Adverse Reaction, Severe, seizure, 10/20/18) oxycodone (Verified Adverse Reaction, Severe, seizure, 10/20/18) tramadol (Verified Adverse Reaction, Severe, seizure, 10/20/18) ZXN-Jqirmm-Sebbqc Hx Patient Social History Living Status: Lives at home with independently 2nd Hand Smoke Exposure: No Recent Hopitalizations: No Alcohol Use?: No Past Medical History Epilepsy Family Medical History Significant Family History: No Pertinent Family Hx Review of Systems ([facility]) Constitutional: malaise EENTM: no symptoms reported Respiratory: cough Cardiovascular: no symptoms reported Gastrointestinal: abdominal pain, constipation, hematemesis, loss of appetite, nausea, vomiting Genitourinary: no symptoms reported Musculoskeletal: no symptoms reported Skin: no symptoms reported Psychiatric/Neurological: No Symptoms Reported Reviewed Test Results Reviewed Test Results Lab Laboratory Tests Test 03/25/22 05:50 Range/Units White Blood Count 12.8 H 4.3-11.0 10^3/uL Red Blood Count 3.96 L 4.30-5.52 10^6/uL Hemoglobin 12.4 L 13.3-17.7 g/dL Hematocrit 38 L 40-54 % Mean Corpuscular Volume 97 80-99 fL Mean Corpuscular Hemoglobin 31 25-34 pg Mean Corpuscular Hemoglobin Concent 33 32-36 g/dL Red Cell Distribution Width 14.3 10.0-14.5 % Platelet Count 196 130-400 10^3/uL Mean Platelet Volume 10.2 9.0-12.2 fL Immature Granulocyte % (Auto) 0 % Neutrophils (%) (Auto) 69 42-75 % Lymphocytes (%) (Auto) 17 12-44 % Monocytes (%) (Auto) 12 0-12 % Eosinophils (%) (Auto) 1 0-10 % Basophils (%) (Auto) 0 0-10 % Neutrophils # (Auto) 8.9 H 1.8-7.8 10^3/uL Lymphocytes # (Auto) 2.1 1.0-4.0 10^3/uL Monocytes # (Auto) 1.5 H 0.0-1.0 10^3/uL Eosinophils # (Auto) 0.2 0.0-0.3 10^3/uL Basophils # (Auto) 0.0 0.0-0.1 10^3/uL Immature Granulocyte # (Auto) 0.0 0.0-0.1 10^3/uL Sodium Level 137 135-145 MMOL/L Potassium Level 4.7 3.6-5.0 MMOL/L Chloride Level 109 H 98-107 MMOL/L Carbon Dioxide Level 18 L 21-32 MMOL/L Anion Gap 10 5-14 MMOL/L Blood Urea Nitrogen 14 7-18 MG/DL Creatinine 0.98 0.60-1.30 MG/DL Estimat Glomerular Filtration Rate 87 BUN/Creatinine Ratio 14 Glucose Level 94 70-105 MG/DL Calcium Level 8.0 L 8.5-10.1 MG/DL Physical Exam-([facility]) Physical Exam Vital Signs VS - Last 72 Hours, by Label 03/24/22 03/24/22 03/24/22 03/24/22 16:56 21:04 22:15 22:15 Temp 37.0 37.0 Pulse 117 103 103 106 Resp 18 18 21 B/P (MAP) 103/61 (75) 108/63 133/79 Pulse Ox 93 92 95 O2 Delivery Room Air Room Air Room Air 8/1/22 8/1/22 8/1/22 8/1/22 22:30 22:49 23:00 23:15 Pulse 93 98 92 Resp 21 20 19 B/P (MAP) 97/60 101/63 105/61 Pulse Ox 93 94 94 91 O2 Delivery Room Air Room Air Room Air Room Air 03/24/22 03/24/22 03/24/22 03/25/22 23:30 23:45 23:59 00:00 Pulse 102 92 92 Resp 23 20 13 B/P (MAP) 108/67 106/66 112/62 Pulse Ox 94 92 93 93 O2 Delivery Room Air Room Air Room Air Room Air 03/25/22 03/25/22 03/25/22 03/25/22 01:00 01:00 02:00 02:55 Pulse 80 80 79 Resp 17 14 B/P (MAP) 90/52 93/59 Pulse Ox 88 92 93 O2 Delivery Room Air Room Air Room Air 03/25/22 03/25/22 03/25/22 03/25/22 03:00 04:00 04:00 05:00 Pulse 84 81 78 Resp 13 18 B/P (MAP) 107/71 87/47 96/52 Pulse Ox 96 93 94 93 O2 Delivery Room Air Room Air Room Air Room Air 03/25/22 03/25/22 03/25/22 03/25/22 06:00 07:00 07:26 07:33 Pulse 80 77 80 Resp 16 14 B/P (MAP) 99/63 101/59 Pulse Ox 94 94 O2 Delivery Room Air Room Air Nasal Cannula O2 Flow Rate 3.00 03/25/22 03/25/22 03/25/22 03/25/22 08:00 08:00 08:20 09:00 Temp 36.7 Pulse 81 79 Resp 14 15 B/P (MAP) 107/60 107/64 Pulse Ox 94 95 94 O2 Delivery Nasal Cannula Room Air Nasal Cannula O2 Flow Rate 3.00 3.00 03/25/22 03/25/22 03/25/22 03/25/22 10:00 11:00 12:00 12:00 Temp 36.6 Pulse 81 76 74 Resp 28 19 17 B/P (MAP) 110/64 95/68 122/63 Pulse Ox 96 94 95 O2 Delivery Room Air Room Air Room Air 03/25/22 03/25/22 03/25/22 03/25/22 12:34 12:42 15:29 16:00 Temp 36.7 36.7 Pulse 74 75 74 Resp 18 18 B/P (MAP) 113/58 (76) 113/58 Pulse Ox 97 94 94 O2 Delivery Room Air Room Air Room Air 03/25/22 19:00 Pulse 120 Capillary Refill : General Appearance: WD/WN, no apparent distress HEENT: PERRL/EOMI Neck: non-tender, full range of motion, supple Respiratory: chest non-tender, lungs clear, normal breath sounds, no respiratory distress, no accessory muscle use Cardiovascular: normal peripheral pulses, regular rate, rhythm, no edema, no murmur Gastrointestinal: soft, tenderness (LLQ mild ttp, no rebound, decreased bowel sounds) Back: no CVA tenderness, no vertebral tenderness Extremities: normal range of motion, non-tender, no pedal edema, no calf tenderness, normal capillary refill Neurologic/Psychiatric: orthodontic laboratory technician II-XII nml as tested, no motor/sensory deficits, alert, normal mood/affect, oriented x 3 Skin: normal color, warm/dry Lymphatic: no adenopathy Assessment/Plan Assessment/Plan Admission Status: Inpatient Order (span 2 midnights) Reason for Inpatient Admission: Requing IVF and medications due to NPO status, unable to take sz medications PO (1) Sepsis Status: Acute Assessment & Plan: - HDS upon admission, Continue Zosyn Qualifiers: Qualified Codes: A41.9 - Sepsis, unspecified organism (2) Bilateral pneumonia Status: Acute Assessment & Plan: - MAT protocol, On RA, Zosyn Qualifiers: Qualified Codes: J18.9 - Pneumonia, unspecified organism (3) Coffee ground emesis Status: Acute Assessment & Plan: - Hgb stable, currently on protonix BID IV, will transition to PO when able (4) Partial small bowel obstruction Status: Acute Assessment & Plan: - Currently NPO, bowel rest (5) Epilepsy Status: Chronic Assessment & Plan: - NPO, started on IV Phenobarb and Keppra as other meds are not available IV, Sz precautions Qualifiers: Qualified Codes: G40.909 - Epilepsy, unspecified, not intractable, without status epilepticus JACINTO ALEJO MD Mar 25, 2022 11:02
[2022-03-25] MEDS ORDERED: LORAZ30SOL PO (11:44)
[2022-03-25] MEDS ORDERED: LORA-404 PO (11:44)
[2022-03-25] MEDS ORDERED: MELA10TA2 PO (11:44)
[2022-03-25] MEDS ORDERED: [UNRECOGNIZED DRUG - CODE] PO (11:58)
[2022-03-25 15:29] VITALS: BP 113/58
[2022-03-25 20:03] VITALS: BP 126/65
[2022-03-26 00:42] VITALS: BP 123/71
[2022-03-26] MEDS: PIPERACILLIN SODIUM/TAZOBACTAM 4.5 GM in NS (IVPB) 100 ML IV SCH ×2 (00:42→09:24)
[2022-03-26] MEDS: NS IV 1000 ML 1,000 ML IV SCH ×2 (02:33→04:41)
[2022-03-26 03:36] VITALS: BP 121/71
[2022-03-26] MEDS ORDERED: KCL 20 MEQ TAB (K-DUR) PO SCH (06:00)
[2022-03-26] MEDS ORDERED: POTASSIUM CL 10MEQ/50ML IVPB 50 ML IV SCH (06:00)
[2022-03-26] MEDS ORDERED: MAGNESIUM 1 GM/100 ML IVPB 100 ML IV SCH (06:00)
[2022-03-26 06:12] LABS: BASOPHILS % (AUTO) 0 % (0-10); EOSINOPHILS # (AUTO) 0.3 10^3/uL (0.0-0.3); EOSINOPHILS % (AUTO) 3 % (0-10); HEMATOCRIT 35 % (40-54); HEMOGLOBIN 11.6 g/dL (13.3-17.7); LYMPHOCYTES # (AUTO) 1.4 10^3/uL (1.0-4.0); LYMPHOCYTES % (AUTO) 13 % (12-44); MEAN CORPUSCULAR HEMOGLOBIN 32 pg (25-34); MEAN CORPUSCULAR HGB CONC 33 g/dL (32-36); MEAN CORPUSCULAR VOLUME 95 fL (80-99); MEAN PLATELET VOLUME 10.1 fL (9.0-12.2); MONOCYTES # (AUTO) 1.5 10^3/uL (0.0-1.0); MONOCYTES % (AUTO) 14 % (0-12); NEUTROPHILS # (AUTO) 7.5 10^3/uL (1.8-7.8); NEUTROPHILS % (AUTO) 70 % (42-75); PLATELET COUNT 259 10^3/uL (130-400); WHITE BLOOD COUNT 10.7 10^3/uL (4.3-11.0)
[2022-03-26 06:21] LABS: ALBUMIN 3.1 GM/DL (3.2-4.5); POTASSIUM 3.8 MMOL/L (3.6-5.0)
[2022-03-26 06:22] LABS: CALCIUM 7.9 MG/DL (8.5-10.1)
[2022-03-26 06:23] LABS: TOTAL PROTEIN 5.9 GM/DL (6.4-8.2)
[2022-03-26 06:25] LABS: BILIRUBIN,TOTAL 0.5 MG/DL (0.1-1.0)
[2022-03-26 06:27] LABS: CREATININE SERUM 0.95 MG/DL (0.60-1.30)
--- NOTE | 2022-03-26 07:19 | Progress Note - Surgery ---
CARLEY HER 03/26/22 0719: Subjective Date Seen by a Provider: Mar 26, 2022 Time Seen by a Provider: 07:14 Subjective/Events-last exam Patient resting comfortably in bed. Denies any abdominal pain. Reports bowel movement last night. Tolerating liquid diet, will start solid diet. Recommended patient to discuss risk/benefits of having colonoscopy with his neurologist Dr. Orozco at [facility]. Focused Exam Lactate Level 03/24/22 17:55: Lactic Acid Level 1.12 Objective Exam Vital Signs Date Time Temp Pulse Resp B/P (MAP) Pulse Ox O2 Delivery O2 Flow Rate FiO2 03/26/22 07:00 92 03/26/22 03:36 37.5 93 18 121/71 (88) 91 Room Air 03/26/22 01:00 100 03/26/22 00:42 37.4 92 18 123/71 (88) 93 Room Air 03/25/22 20:25 Room Air 03/25/22 20:03 37.4 99 18 126/65 (85) 92 Room Air 03/25/22 20:03 37.4 99 18 126/65 92 Room Air 03/25/22 19:00 120 03/25/22 16:00 36.7 74 18 113/58 94 Room Air 03/25/22 15:29 36.7 75 18 113/58 (76) 94 Room Air 03/25/22 12:42 97 Room Air 03/25/22 12:34 74 03/25/22 12:00 36.6 03/25/22 12:00 74 17 122/63 95 Room Air 03/25/22 11:00 76 19 95/68 94 Room Air 03/25/22 10:00 81 28 110/64 96 Room Air 03/25/22 09:00 79 15 107/64 94 Nasal Cannula 3.00 03/25/22 08:20 95 Room Air 03/25/22 08:00 36.7 03/25/22 08:00 81 14 107/60 94 Nasal Cannula 3.00 03/25/22 07:33 80 03/25/22 07:26 Nasal Cannula 3.00 I & O 03/26/22 07:00 Intake Total 1360 ml Output Total 3175 ml Balance -1815 ml Capillary Refill : General Appearance: No Apparent Distress, WD/WN HEENT: PERRL/EOMI, Normal ENT Inspection, Other (Dry oral mucosa) Neck: Full Range of Motion, Normal Inspection Respiratory: Chest Non Tender, No Accessory Muscle Use, No Respiratory Distress, Rales, Rhonci Cardiovascular: Regular Rate, Rhythm, No JVD, Tachycardia Gastrointestinal: non tender, soft Extremity: Normal Inspection, Normal Range of Motion Neurologic/Psychiatric: Alert, Oriented x3 Skin: Normal Color, Warm/Dry Lymphatic: No Adenopathy Results Lab Laboratory Tests 03/26/22 06:00: White Blood Count 10.7, Red Blood Count 3.67L, Hemoglobin 11.6L, Hematocrit 35L, Mean Corpuscular Volume 95, Mean Corpuscular Hemoglobin 32, Mean Corpuscular Hemoglobin Concent 33, Red Cell Distribution Width 14.0, Platelet Count 259, Mean Platelet Volume 10.1, Immature Granulocyte % (Auto) 0, Neutrophils (%) (Auto) 70, Lymphocytes (%) (Auto) 13, Monocytes (%) (Auto) 14H, Eosinophils (%) (Auto) 3, Basophils (%) (Auto) 0, Neutrophils # (Auto) 7.5, Lymphocytes # (Auto) 1.4, Monocytes # (Auto) 1.5H, Eosinophils # (Auto) 0.3, Basophils # (Auto) 0.0, Immature Granulocyte # (Auto) 0.0, Sodium Level 140, Potassium Level 3.8, Chloride Level 112H, Carbon Dioxide Level 21, Anion Gap 7, Blood Urea Nitrogen 9, Creatinine 0.95, Estimat Glomerular Filtration Rate 90, BUN/Creatinine Ratio 9, Glucose Level 92, Calcium Level 7.9L, Corrected Calcium 8.6, Total Bilirubin 0.5, Aspartate Amino Transf (AST/SGOT) 17, Alanine Aminotransferase (ALT/SGPT) 18, Alkaline Phosphatase 80, Total Protein 5.9L, Albumin 3.1L Microbiology 03/24/22 Blood Culture - Preliminary, Resulted No growth 03/24/22 Urine Culture - Preliminary, Resulted Gram Positive Cocci In Chains Assessment/Plan Assessment/Plan Assessment/Plan Seizure Partial small bowel obstruction Nausea and vomiting Occult positive emesis Patient currently passing flatus/having bowel movement and not having any abdominal pain or distention. I think patient CT scan findings demonstrating partial small bowel obstruction has resolved. Patient wanting to start diet. We will start him on solid diet and see how he tolerates. Discussed with patient that he is never had a colonoscopy would recommend EGD colonoscopy in the near future. Instructed him to discuss with his neurologist who he states is told him previously not to get 1. AIYANA BRANDON DO 03/26/2225: Subjective Subjective/Events-last exam Having flatus and bm. No abdominal pain. Tolerating liquid diet. No new seizures. at bedside. Denies any new complaints. Denies n/v fever sweats chills shortness of breath or chest pain. Objective Exam General Appearance: No Apparent Distress, WD/WN HEENT: PERRL/EOMI, Normal ENT Inspection Neck: Full Range of Motion, Normal Inspection Respiratory: Chest Non Tender, No Accessory Muscle Use, No Respiratory Distress Cardiovascular: Regular Rate, Rhythm, No JVD Gastrointestinal: non tender, soft Extremity: Normal Inspection, Normal Range of Motion Neurologic/Psychiatric: Alert, Oriented x3 Skin: Normal Color, Warm/Dry Lymphatic: No Adenopathy Assessment/Plan Assessment/Plan Assessment/Plan Seizure Partial small bowel obstruction Nausea and vomiting Occult positive emesis Patient currently passing flatus/having bowel movement and not having any abdominal pain or distention. I think patient CT scan findings demonstrating partial small bowel obstruction has resolved. Patient tolerating liquid diet. We will advance diet. Discussed with patient that he is never had a colonoscopy would recommend EGD colonoscopy in the near future. Instructed him to discuss with his neurologist who he states is told him previously not to get 1. Supervisory-Addendum Brief Verification & Attestation Participated in pt care: history, MDM, physical Personally performed: exam, history, MDM, supervision of care Care discussed with: Medical Student Procedures: n/a Results interpretation: Verified all documentation Verification and Attestation of Medical Student E/M Service A medical student performed and documented this service in my presence. I reviewed and verified all information documented by the medical student and made modifications to such information, when appropriate. I personally performed the physical exam and medical decision making. Aiyana Brandon, Mar 26, 2022,07:25 CARLEY HER Mar 26, 2022 07:19 AIYANA BRANDON DO Mar 26, 2022 07:25
[2022-03-26 08:00] VITALS: BP 130/80
[2022-03-26] MEDS ORDERED: RT-ALBUTEROL/IPRATROPIUM 3 ML (DUONEB) VIAL INH SCH (08:00)
[2022-03-26] MEDS: PANTOPRAZOLE 40 MG (PROTONIX) VIAL IV SCH (09:24)
[2022-03-26 11:37] VITALS: BP 127/78
--- NOTE | 2022-03-26 11:37 | Discharge Summary ---
Diagnosis/Chief Complaint Date of Admission Mar 24, 2022 at 22:04 Date of Discharge 03/26/22 Admission Diagnosis Admission Diagnosis See problem list Discharge Diagnosis See below Problems/Diagnosis: (1) Sepsis Assessment & Plan: - HDS upon admission, Continue Zosyn 03/26: PNA and UTI, will treat with PO antibiotics Qualifiers: Qualified Codes: A41.9 - Sepsis, unspecified organism Status: Acute (2) Bilateral pneumonia Assessment & Plan: - MAT protocol, On RA, Zosyn Qualifiers: Qualified Codes: J18.9 - Pneumonia, unspecified organism Status: Acute (3) Coffee ground emesis Assessment & Plan: - Hgb stable, currently on protonix BID IV, will transition to PO when able Status: Acute (4) Partial small bowel obstruction Assessment & Plan: - Currently NPO, bowel rest 03/26: tolerating CLD, continue CLD and soft diet at home for the next 7-10 days Status: Acute (5) Epilepsy Assessment & Plan: - NPO, started on IV Phenobarb and Keppra as other meds are not available IV, Sz precautions 03/26: Adjusted home sz meds as patient felt better Qualifiers: Qualified Codes: G40.909 - Epilepsy, unspecified, not intractable, without status epilepticus Status: Chronic Chief Complaint/HPI Chief Complaint/HPI 61 yo M that presents with increasing frequency of sz, vomiting with coffee ground emesis and abdominal pain. States that it started over the weekend. He ate of [employer] on thursday and new grill on thursday. States that he did not eat anything out of the ordinary for him. He has not had any similar episodes in the past but states he has had a SBO previously that resolved with bowel rest. Denies missing any medications but states that his PCP has added a new seizure medication in the last month. States that pain is better this AM. No futher N/V since arriving at hospital. Discharge Summary-Simple/Stand Consultations General Surgery: Dr Brandon Discharge Physical Examination Allergies: Coded Allergies: bupropion (Verified Allergy, Severe, seizure, 10/20/18) acetaminophen (Verified Adverse Reaction, Severe, seizure, 10/20/18) escitalopram (Verified Adverse Reaction, Severe, seizure, 10/20/18) oxycodone (Verified Adverse Reaction, Severe, seizure, 10/20/18) tramadol (Verified Adverse Reaction, Severe, seizure, 10/20/18) Vitals & I&Os Vital Sign - Last 12Hours Date Time Temp Pulse Resp B/P (MAP) Pulse Ox O2 Delivery O2 Flow Rate FiO2 03/26/22 08:43 91 Room Air 03/26/22 08:00 37.8 91 18 130/80 (97) 03/25/22 09:00 3.00 Intake and Output 03/26/22 00:00 Intake Total 1160 ml Output Total 700 ml Balance 460 ml General Appearance: Alert, Oriented X3, Cooperative, No Acute Distress HEENT: Mucous Memb Moist/[place] Respiratory: Clear to Auscultation, Normal Air Movement Cardiovascular: Regular Rate, No Murmurs Abdominal: Normal Bowel Sounds, Soft, Other (mild RLQ pain without rebound or guarding) Extremities: No Edema, No Tenderness/Swelling Skin: No Rashes Neuro: Normal Speech, Sensation Intact, Cranial Nerves 3-12 NL Psych/Mental Status: Mental Status NL, Mood NL Hospital Course See final discharge diagnosis. Discussion & Recommendations 61 yo M that presented after having increase in seizures and was found to have possible PNA and partial SBO. Patient was kept NPO and then advanced to CLD and did well. Seizure medications were adjusted because patient had more sedation with previous medications. Discharge Condition at discharge stable Instructions to patient/family Please see electronic discharge instructions given to patient. Discharge Medications Reviewed and agree with Discharge Medication list on patient's Discharge Instruction sheet JACINTO VIRAMONTES MD Mar 26, 2022 11:37
[2022-03-26] MEDS ORDERED: LEVE500T99 PO (12:59)
--- NOTE | 2022-03-26 13:02 | Discharge Summary ---
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
== END 2022-03-26 14:52 | disposition home or self-care (01) | DRG 871 ==
LOC: EDUNIT# 16:33 → ER FS 16:35 → ICU 22:04 → 4TH 03-25 13:59
PROVIDERS: ADMIT Family Medicine; ATTEND Family Medicine
DX: A41.9 Sepsis, unspecified organism (principal); J18.9 Pneumonia, unspecified organism; N39.0 Urinary tract infection, site not specified; K92.0 Hematemesis; K56.600 Partial intestinal obstruction, unspecified as to cause; G40.909 Epilepsy, unspecified, not intractable, without status epilepticus; G47.30 Sleep apnea, unspecified; G40.409 Other generalized epilepsy and epileptic syndromes, not intractable, without status epilepticus; Z90.81 Acquired absence of spleen; Z28.310 Unvaccinated for COVID-19; Z20.822 Contact with and (suspected) exposure to COVID-19; Z88.5 Allergy status to narcotic agent; Z88.6 Allergy status to analgesic agent; Z88.8 Allergy status to other drugs, medicaments and biological substances
CPT/HCPCS: 36410; 36415; 70450; 71045; 74176; 76937; 80048; 80053; 80184; 81000; 82271; 83605; 83690; 85007; 85025; 85027; 85610; 85730; 87040; 87077; 87088; 87636; 94640; 94664; 94760

== ENCOUNTER 2022-05-04 07:13 | Emergency (ER) | payer MEDICARE, MEDICAID ==
[~2022-05-04 07:13] MED LIST changes: +CLOB10TA17 PO; +LACO200T2 PO; +LEVE500T99 PO; +LORA-404 PO; +LORAZ30SOL PO; +LORazepam PO; +MELA10TA2 PO; +MELA1TAB15 PO; +[UNRECOGNIZED DRUG - CODE] PO
--- NOTE | 2022-05-04 07:18 | ED Neurological Problem ---
General Stated Complaint: SEIZURE; COV+ History of Present Illness Date Seen by Provider: May 04, 2022 Time Seen by Provider: 07:14 Initial Comments 62-year-old male with PMH of SZD on Keppra and phenobarbital at home, is brought in by EMS with complaints of recurrent seizures which have been going on and worsening since yesterday. Patient had approximately 5 seizures today morning all lasting less than 10 seconds. EMS gave patient 2 mg IV Ativan to stop seizures. Patient is also COVID-positive and was diagnosed 3 days ago. Denies fever, shortness of breath, cough, incontinence, abdominal pain, diarrhea, chest pain. Allergies and Home Medications Allergies Coded Allergies: bupropion (Verified Allergy, Severe, seizure, 10/20/18) acetaminophen (Verified Adverse Reaction, Severe, seizure, 10/20/18) escitalopram (Verified Adverse Reaction, Severe, seizure, 10/20/18) oxycodone (Verified Adverse Reaction, Severe, seizure, 10/20/18) tramadol (Verified Adverse Reaction, Severe, seizure, 10/20/18) Patient Home Medication List Home Medication List Reviewed: Yes Lacosamide (Vimpat) 200 Mg Tablet, 200 MG PO 0700,1500,2300, (Reported) Entered as Reported by: NEDA ONTIVEROS on 03/24/22 2344 Levetiracetam (Keppra) 500 Mg Tablet, 500 MG PO BID Prescribed by: JACINTO VIRAMONTES on 03/26/22 1259 Lorazepam (Ativan) 0.5 Mg Tablet, 0.5-1 MG PO HS, (Reported) Entered as Reported by: ASHKAN BERNAL on 03/25/22 1144 Lorazepam (Lorazepam) 2 Mg/Ml Oral.conc, 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, (Reported) Entered as Reported by: ASHKAN BERNAL on 03/25/22 1144 Melatonin (Melatonin) 10 Mg Tablet, 10 MG PO HS, (Reported) Entered as Reported by: ASHKAN BERNAL on 03/25/22 1144 Phenobarbital (Phenobarbital) 97.2 Mg Tablet, 194.4 MG PO HS, (Reported) Entered as Reported by: DAVID ALBARRAN on 10/20/18 1271 Review of Systems Review of Systems Constitutional: no symptoms reported Eyes: No Symptoms Reported Ears, Nose, Mouth, Throat: no symptoms reported Respiratory: no symptoms reported Cardiovascular: no symptoms reported Gastrointestinal: no symptoms reported Genitourinary: no symptoms reported Musculoskeletal: no symptoms reported Skin: no symptoms reported Psychiatric/Neurological: Tonic Clonic Seizures Endocrine: No Symptoms Reported Hematologic/Lymphatic: No Symptoms Reported Past Pznpdxd-Iyruec-Xilgjj Hx Seasonal Allergies Seasonal Allergies: No Past Medical History Surgery/Hospitalization HX: Seizures Surgeries: Yes Abdominal Respiratory: Yes ( influenza ) Pneumonia Cardiac: No Neurological: Yes Seizure Disorder Genitourinary: No Gastrointestinal: No Musculoskeletal: No Endocrine: No HEENT: No Cancer: No Psychosocial: No Integumentary: No Blood Disorders: No Family Medical History No Pertinent Family Hx Physical Exam Vital Signs Vital Signs - First Documented 05/04/22 07:45 Pulse 76 Resp 18 B/P (MAP) 114/73 (87) Pulse Ox 100 O2 Delivery Room Air Capillary Refill : Height, Weight, BMI Height: 6'10.00" Weight: 200lbs. oz. [id number]; 30.64 BMI Method:Estimated General Appearance: WD/WN, no apparent distress, other (post-ictal) HEENT: PERRL/EOMI, normal ENT inspection Neck: non-tender, full range of motion, supple, normal inspection Respiratory: chest non-tender, lungs clear, normal breath sounds Cardiovascular: regular rate, rhythm, no edema Gastrointestinal: normal bowel sounds, non tender, soft Back: normal inspection, no vertebral tenderness Extremities: normal range of motion Neurologic/Psychiatric: alert (post-ictal, and slow mentation, but this at baseline), oriented x 3 Crainal Nerves: PERRL Skin: normal color Focused Exam Lactate Level 05/04/22 07:21: Lactic Acid Level 1.49 Lactic Acid Level Laboratory Tests Test 05/04/22 07:21 Lactic Acid Level 1.49 MMOL/L (0.50-2.00) Procedures/Interventions Suture Size: 4-0 Progress/Results/Core Measures Results/Orders Lab Results Laboratory Tests Test 05/04/22 07:21 05/04/22 08:32 Range/Units White Blood Count 6.3 4.3-11.0 10^3/uL Red Blood Count 4.51 4.30-5.52 10^6/uL Hemoglobin 14.0 13.3-17.7 g/dL Hematocrit 42 40-54 % Mean Corpuscular Volume 93 80-99 fL Mean Corpuscular Hemoglobin 31 25-34 pg Mean Corpuscular Hemoglobin Concent 34 32-36 g/dL Red Cell Distribution Width 13.4 10.0-14.5 % Platelet Count 304 130-400 10^3/uL Mean Platelet Volume 9.5 9.0-12.2 fL Immature Granulocyte % (Auto) 0 % Neutrophils (%) (Auto) 62 42-75 % Lymphocytes (%) (Auto) 16 12-44 % Monocytes (%) (Auto) 21 H 0-12 % Eosinophils (%) (Auto) 1 0-10 % Basophils (%) (Auto) 1 0-10 % Neutrophils # (Auto) 3.9 1.8-7.8 10^3/uL Lymphocytes # (Auto) 1.0 1.0-4.0 10^3/uL Monocytes # (Auto) 1.3 H 0.0-1.0 10^3/uL Eosinophils # (Auto) 0.0 0.0-0.3 10^3/uL Basophils # (Auto) 0.0 0.0-0.1 10^3/uL Immature Granulocyte # (Auto) 0.0 0.0-0.1 10^3/uL Neutrophils % (Manual) 60 % Lymphocytes % (Manual) 24 % Monocytes % (Manual) 14 % Eosinophils % (Manual) 2 % Sodium Level 137 135-145 MMOL/L Potassium Level 4.0 3.6-5.0 MMOL/L Chloride Level 104 98-107 MMOL/L Carbon Dioxide Level 23 21-32 MMOL/L Anion Gap 10 5-14 MMOL/L Blood Urea Nitrogen 12 7-18 MG/DL Creatinine 0.77 0.60-1.30 MG/DL Estimat Glomerular Filtration Rate 100 BUN/Creatinine Ratio 16 Glucose Level 103 70-105 MG/DL Lactic Acid Level 1.49 0.50-2.00 MMOL/L Calcium Level 8.8 8.5-10.1 MG/DL Corrected Calcium 8.9 8.5-10.1 MG/DL Magnesium Level 1.9 1.6-2.4 MG/DL Total Bilirubin 0.2 0.1-1.0 MG/DL Aspartate Amino Transf (AST/SGOT) 17 5-34 U/L Alanine Aminotransferase (ALT/SGPT) 14 0-55 U/L Alkaline Phosphatase 158 H 40-136 U/L Total Protein 7.5 6.4-8.2 GM/DL Albumin 3.9 3.2-4.5 GM/DL Serum Alcohol < 10 <10 MG/DL Urine Color YELLOW Urine Clarity CLEAR Urine pH 7.0 5-9 Urine Specific [place] 1.020 1.016-1.022 Urine Protein TRACE H NEGATIVE Urine Glucose (UA) NEGATIVE NEGATIVE Urine Ketones NEGATIVE NEGATIVE Urine Nitrite NEGATIVE NEGATIVE Urine Bilirubin NEGATIVE NEGATIVE Urine Urobilinogen 0.2 < = 1.0 MG/DL Urine Leukocyte Esterase NEGATIVE NEGATIVE Urine RBC (Auto) NEGATIVE NEGATIVE Urine RBC 5-10 H /HPF Urine WBC 10-25 H /HPF Urine Squamous Epithelial Cells 2-5 /HPF Urine Crystals NONE /LPF Urine Bacteria FEW H /HPF Urine Casts NONE /LPF Urine Mucus LARGE H /LPF Urine Culture Indicated YES Urine Opiates Screen NEGATIVE NEGATIVE Urine Oxycodone Screen NEGATIVE NEGATIVE Urine Methadone Screen NEGATIVE NEGATIVE Urine Propoxyphene Screen NEGATIVE NEGATIVE Urine Barbiturates Screen POSITIVE H NEGATIVE Ur Tricyclic Antidepressants Screen NEGATIVE NEGATIVE Urine Phencyclidine Screen NEGATIVE NEGATIVE Urine Amphetamines Screen NEGATIVE NEGATIVE Urine Methamphetamines Screen NEGATIVE NEGATIVE Urine Benzodiazepines Screen POSITIVE H NEGATIVE Urine Cocaine Screen NEGATIVE NEGATIVE Urine Cannabinoids Screen NEGATIVE NEGATIVE My Orders Orders - JUDI PATTON MD Levetiracetam Injection (Keppra Injectio (05/04/22 07:21) Levetiracetam Injection (Keppra Injectio (05/04/22 07:21) Ed Iv/Invasive Line Start (05/04/22 07:22) Ns Iv 1000 Ml (Sodium Chloride 0.9%) (05/04/22 07:30) Alcohol (05/04/22 07:22) Cbc With Automated Diff (05/04/22 07:22) Comprehensive Metabolic Panel (05/04/22 07:22) Drug Screen Stat (Urine) (05/04/22 07:22) Magnesium (05/04/22 07:22) Ua Culture If Indicated (05/04/22 07:22) Chest 1 View Ap/Pa Only (05/04/22 07:23) Lactic Acid Analyzer (05/04/22 07:24) Manual Differential (05/04/22 07:21) Creatine Kinase (05/04/22 07:21) Urine Culture (05/04/22 08:32) Ceftriaxone (Rocephin) (05/04/22 09:30) Lidocaine 1% Inj 20 Ml (Xylocaine 1% Inj (05/04/22 09:30) Vital Signs/I&O 05/04/22 07:45 Pulse 76 Resp 18 B/P (MAP) 114/73 (87) Pulse Ox 100 O2 Delivery Room Air Progress Progress Note : Progress Note 1. RECURRENT SEIZURES: - CXR: normal - Labs: unremarkable - Keppra level: - Phenobarbitol level: - NS IVF bolus - Keppra 1,500mg iv STAT in ER - Pt did not have any seizures in the ER - Prescription for Keppra for 1,000mg Q12H. patient normally takes 750 mg twice daily but I will increase the dose to 1000 mg twice a day for 5 days since p marvin has been having more frequent seizures. Patient is to follow-up with PCP and neurology as soon as possible and they can further reassess dosage of patient's seizure medications. 2. ACUTE CYSTITIS: - UA positive for RBC, WBC, bacteria -Leukocyte esterase and nitrates are negative however in lieu of the rest of the UA, will treat for early UTI - Ceftriaxone 1gm iv STAT in ER - Prescription for Keflex 500mg bid for 5 days Diagnostic Imaging Diagonstic Imaging: Xray Plain Films/CT/US/NM/MRI: chest Comments [facility], [facility] [place], [place] NAME: [facility] REC#: [id number] PT STATUS: REG ER : 1960 PHYSICIAN: JUDI PATTON MD ADMIT DATE: 05/04/22/ER FS Draft Date of Exam:05/04/22 CHEST 1 VIEW AP/PA ONLY EXAMINATION: Chest 1 view HISTORY: Seizure COMPARISON: 03/24/2022 FINDINGS: The lungs are clear without edema or pneumonia. No pleural effusion or pneumothorax. Heart size is normal. IMPRESSION: 1. Clear lungs. Dictated on workstation # [id number] Dict: 05/04/22751 Trans: 05/04/22 0759 YOKO [id number] Interpreted by: RAUL GUTIERREZ MD Electronically signed by: Departure Impression Primary Impression: Recurrent seizures Additional Impression: Acute cystitis with hematuria Disposition: HOME, SELF-CARE Condition: Improved Departure-Patient Inst. Referrals: DARVIN PASTRANA MD (PCP/Family) Primary Care Physician Patient Instructions: Seizures, Acute Cystitis (DC) Add. Discharge Instructions: - Prescription for Keppra 1000 mg twice a day for 5 days since patient has been having more frequent seizures. Patient is to follow-up with PCP and neurology as soon as possible and they can further reassess dosage of patient's seizure medications. - Prescription for Keflex 500mg bid for 5 days Scripts Levetiracetam (Keppra) 1,000 Mg Tablet 1000 MG PO Q12H for 5 Days, #10 TAB Prov: JUDI PATTON MD 05/04/22 Cephalexin (Cephalexin) 500 Mg Tablet 500 MG PO BID for 5 Days, #10 TAB Prov: JUDI PATTON MD 05/04/22 JUDI PATTON MD May 04, 2022 07:18
[2022-05-04 07:28] LABS: BASOPHILS % (AUTO) 1 % (0-10); EOSINOPHILS % (AUTO) 1 % (0-10); HEMATOCRIT 42 % (40-54); LYMPHOCYTES % (AUTO) 16 % (12-44); MEAN CORPUSCULAR HEMOGLOBIN 31 pg (25-34); MEAN CORPUSCULAR HGB CONC 34 g/dL (32-36); MEAN CORPUSCULAR VOLUME 93 fL (80-99); MEAN PLATELET VOLUME 9.5 fL (9.0-12.2); MONOCYTES # (AUTO) 1.3 10^3/uL (0.0-1.0); MONOCYTES % (AUTO) 21 % (0-12); NEUTROPHILS # (AUTO) 3.9 10^3/uL (1.8-7.8); NEUTROPHILS % (AUTO) 62 % (42-75); PLATELET COUNT 304 10^3/uL (130-400); WHITE BLOOD COUNT 6.3 10^3/uL (4.3-11.0)
[2022-05-04] MEDS ORDERED: NS IV 1000 ML 1,000 ML IV SCH (07:30)
[2022-05-04 07:47] LABS: ALANINE AMINOTRANSFERASE 14 U/L (0-55); ALBUMIN 3.9 GM/DL (3.2-4.5); ALKALINE PHOSPHATASE 158 U/L (40-136); BILIRUBIN,TOTAL 0.2 MG/DL (0.1-1.0); BUN/CREATININE RATIO 16; CALCIUM 8.8 MG/DL (8.5-10.1); CARBON DIOXIDE 23 MMOL/L (21-32); CHLORIDE 104 MMOL/L (98-107); CREATININE SERUM 0.77 MG/DL (0.60-1.30); GFR ESTIMATED 100; GLUCOSE 103 MG/DL (70-105); MAGNESIUM 1.9 MG/DL (1.6-2.4); SODIUM 137 MMOL/L (135-145); TOTAL PROTEIN 7.5 GM/DL (6.4-8.2)
[2022-05-04 07:51] LABS: EOSINOPHILS % (MANUAL) 2 %; LYMPHOCYTES % (MANUAL) 24 %; MONOCYTES % (MANUAL) 14 %; NEUTROPHILS % (MANUAL) 60 %
--- NOTE | 2022-05-04 08:00 | Diagnostic Imaging Report ---
EXAMINATION: Chest 1 view HISTORY: Seizure COMPARISON: 03/24/2022 FINDINGS: The lungs are clear without edema or pneumonia. No pleural effusion or pneumothorax. Heart size is normal. IMPRESSION: 1. Clear lungs. Dictated by: Dictated on workstation # [id number]
[2022-05-04 08:41] LABS: BILIRUBIN,URINE NEGATIVE (NEGATIVE); CLARITY,URINE CLEAR; COLOR,URINE YELLOW; GLUCOSE, URINE (UA) NEGATIVE (NEGATIVE); KETONES,URINE NEGATIVE (NEGATIVE); LEUKOCYTE ESTERASE ,URINE NEGATIVE (NEGATIVE); NITRITE,URINE NEGATIVE (NEGATIVE); PROTEIN,URINE TRACE (NEGATIVE)
[2022-05-04 08:42] LABS: BACTERIA,URINE FEW /HPF
[2022-05-04 08:48] LABS: AMPHETAMINE SCREEN, URINE NEGATIVE (NEGATIVE); BARBITURATE SCREEN URINE POSITIVE (NEGATIVE); BENZODIAZEPINES SCREEN URINE POSITIVE (NEGATIVE); CANNABINOID SCREEN, URINE NEGATIVE (NEGATIVE); COCAINE SCREEN URINE NEGATIVE (NEGATIVE); METHADONE STAT NEGATIVE (NEGATIVE); OPIATE SCREEN URINE NEGATIVE (NEGATIVE); OXYCODONE STAT NEGATIVE (NEGATIVE); PROPOXYPHENE STAT NEGATIVE (NEGATIVE); TRICYCLIC ANTIDEPRESSANTS SCRE NEGATIVE (NEGATIVE)
[2022-05-04] MEDS ORDERED: LIDOCAINE 1% INJ 20 ML VIAL INJ ONE (09:30)
[2022-05-04] MEDS ORDERED: cefTRIAXone 1,000 MG VIAL IM ONE (09:30)
[2022-05-04] MEDS ORDERED: LEVE100015 PO (09:39)
[2022-05-04] MEDS ORDERED: CEPH500T PO (09:39)
[2022-05-04 09:40] VITALS: BP 112/62
== END 2022-05-04 09:50 | disposition home or self-care (01) ==
LOC: EDUNIT# 07:13 → ER FS 07:17
DX: G40.909 Epilepsy, unspecified, not intractable, without status epilepticus (principal); N30.01 Acute cystitis with hematuria; U07.1 COVID-19; Z79.899 Other long term (current) drug therapy
CPT/HCPCS: 36415; 36680; 71045; 80053; 80177; 80184; 80306; 81000; 82550; 83605; 83735; 85007; 85027; 87088; 99284; G0480; 80320

== ENCOUNTER → 2022-09-15 | Outpatient (CLI) | payer MEDICARE, MEDICAID ==
[~2022-09-15] MED LIST changes: +CEPH500T PO; +LEVE100015 PO
== END ==
LOC: CARD 11:00
PROVIDERS: ATTEND Family Medicine
DX: I51.7 Cardiomegaly (principal); I35.1 Nonrheumatic aortic (valve) insufficiency; R55 Syncope and collapse
CPT/HCPCS: 93225; 93226; C8929; 93306

== ENCOUNTER → 2022-10-14 | Outpatient (CLI) | payer MEDICARE, MEDICAID ==
[~2022-10-14] MED LIST changes: +HOLD METFORMIN - RECEIVED CONTRAST 20 ML VIAL IV SCH; +IOHEXOL 350 MG/ML 100 ML (OMNIPAQUE 350) VIAL IV ONE; +NS 100 ML (IVPB) BAG IV ONE
[2022-10-14 12:25] LABS: CREATININE SERUM 0.89 MG/DL (0.60-1.30)
== END ==
LOC: RAD 13:15
PROVIDERS: ATTEND Internal Medicine Cardiovascular Disease
DX: I71.20 Thoracic aortic aneurysm, without rupture, unspecified (principal)
CPT/HCPCS: 36415; 82565; 84520

== ENCOUNTER → 2022-10-15 | Outpatient (CLI) | payer MEDICARE, MEDICAID ==
[~2022-10-15] MED LIST changes: -HOLD METFORMIN - RECEIVED CONTRAST 20 ML VIAL IV SCH; -IOHEXOL 350 MG/ML 100 ML (OMNIPAQUE 350) VIAL IV ONE; +LEVE10006 PO; -NS 100 ML (IVPB) BAG IV ONE
[2022-10-15 14:40] VITALS: BP 123/79
--- NOTE | 2022-10-15 17:50 | Cardiology Stress Test Report ---
Stress Test Report Date of Procedure/Referring: Date of Procedure: Oct 15, 2022 PCP Darvin Mack MD Admitting Physician Admitting Physician: Attending Physician: Mikayla Rosas Indications: Syncope Baseline Heart Rate: 82 Baseline Blood Pressure: Blood Pressure Systolic: 123 Blood Pressure Diastolic: 79 Baseline EKG: Baseline EKG: NSR Summary/Conclusion: Summary: In summary, the patient started exercising with a baseline heart rate, blood pressure and EKG mentioned above Patient was able to exercise for a total of 3 minutes on Tone protocol, METs 4.6 Maximum heart rate 136 Maximum blood pressure 135/82 Stress EKG, Minimal nondiagnostic changes Recovery EKG , Return to baseline Conclusion: 1. Good exercise tolerance for a total of 3 minutes on Tone protocol, 4.6 METs, achieving 87 percent of maximum expected heart rate 2. Minimal nondiagnostic EKG changes with exercise returned to baseline during recovery 3. No arrhythmia was noted Copy Copies To 1: DARVIN MACK MD, BASHAR J MD Oct 15, 2022 17:50
== END ==
LOC: CARD 15:00
PROVIDERS: ATTEND Physician Assistant
DX: R55 Syncope and collapse (principal)
CPT/HCPCS: 93017

== ENCOUNTER 2022-10-22 05:30 | Outpatient (CLI) | payer MEDICARE, MEDICAID ==
[~2022-10-22] VITALS: Ht 177.8 cm; Wt 95.1 kg
[~2022-10-22 05:30] MED LIST changes: -LEVE10006 PO
[2022-10-22] MEDS ORDERED: LEVE10006 PO ×2 (09:35)
== END 2022-10-22 09:58 | disposition home or self-care (01) ==
LOC: PREOP 05:30
PROVIDERS: ATTEND Surgery
DX: Z01.818 Encounter for other preprocedural examination (principal)

== ENCOUNTER 2022-10-23 10:23 | Day surgery (SDC) | payer MEDICARE, MEDICAID ==
[~2022-10-23] VITALS: Ht 177.8 cm; Wt 95.1 kg
[2022-10-23] VITALS (7 sets, daily range): BP systolic 95–132; BP diastolic 60–76
[~2022-10-23 10:23] MED LIST changes: +LEVE10006 PO
[2022-10-23] MEDS ORDERED: ceFAZolin INJECTION 2,000 MG in NS (IVPB) 50 ML IV ONE (10:30)
[2022-10-23] MEDS ORDERED: LACTATED RINGERS 1,000 ML IV PRN (10:30)
[2022-10-23] MEDS ORDERED: LIDOCAINE/EPI 1%-1:100,000 (XYLOCAINE) 20ML ONE (12:30)
[2022-10-23] MEDS ORDERED: 0.9% SODIUM CHLORIDE PF INJ 20 ML VIAL ONE (12:30)
[2022-10-23] MEDS ORDERED: HEParin (CENTRAL IV FLUSH) 500 UNIT/5 ML SYR ONE (12:30)
--- NOTE | 2022-10-23 13:41 | Progress Note-Pre Operative ---
Pre-Operative Progress Note Date H&P Reviewed: Oct 23, 2022 Time H&P Reviewed: 13:41 History & Physical: H&P Reviewed, Patient Examed, No changes noted Pre-Operative Diagnosis: venous insufficency AIYANA CLINE DO Oct 23, 2022 13:41
[2022-10-23] MEDS ORDERED: MIDAZOLAM 2 MG/2 ML (VERSED) VIAL ONE (13:50)
[2022-10-23] MEDS ORDERED: 0.9% SODIUM CHLORIDE PF INJ 20 ML VIAL IJ ONE (14:05)
[2022-10-23] MEDS ORDERED: LIDOCAINE/EPI 1%-1:100,000 (XYLOCAINE) 20ML INJ ONE (14:06)
[2022-10-23] MEDS ORDERED: HEParin (CENTRAL IV FLUSH) 500 UNIT/5 ML SYR IV ONE (14:07)
[2022-10-23] MEDS ORDERED: PROPOFOL INJECTION 50 ML IV ONE (14:19)
--- NOTE | 2022-10-23 14:27 | Anesthesia-General Post-Op ---
MAC Patient Condition Mental Status/LOC: Same as Preop Cardiovascular: Satisfactory Nausea/Vomiting: Absent Respiratory: Satisfactory Pain: Controlled Complications: Absent Post Op Complications Complications None Follow Up Care/Instructions Patient Instructions None needed. Anesthesiology Discharge Order Discharge Order Patient is doing well, no complaints, stable vital signs, no apparent adverse anesthesia problems. No complications reported per nursing. NELA EASTON CRNA Oct 23, 2022 14:27
[2022-10-23] MEDS ORDERED: ONDANSETRON 4 MG/2 ML (SDV) Z0FRAN IVP PRN (14:30)
[2022-10-23] MEDS ORDERED: HYDROmorphone 2 MG/ML VIAL (DILAUDID) IV ONE (14:30)
--- NOTE | 2022-10-23 14:31 | Progress Note-Post Operative ---
Post-Operative Progess Note Surgeon (s)/Room Cleaner (s) Surgeon AIYANA CLINE DO Room Cleaner: na Pre-Operative Diagnosis venous insufficency Post-Operative Diagnosis same Procedure & Operative Findings Date of Procedure 10/23/22 Procedure Performed/Findings PROCEDURE: Right internal jugular port placement using ultrasound guidance. COMPLICATIONS: None. INDICATIONS: The patient is a 62 year old male with venous insufficiency. Patient understands the risks and benefits of port placement and wished to proceed with the procedure. Consent was signed on the chart. PROCEDURE: The patient was taken to the operating suite, was prepped and draped in the sterile fashion. A surgical pause was performed. Ultrasound was used to locate the internal jugular vein. Once located anesthetic was infiltrated above it. Using micro-access kit, the right internal vein was accessed. Dark nonpulsatile blood was withdrawn. The wire was inserted. Fluoroscopy assured proper placement. The needle was removed. The micro-access dilator was advanced over the wire and the wire was removed. The regular wire was inserted and fluoroscopy assured proper placement. The wire was then secured. Local anesthetic was used to anesthetize from the neck for tunneling down to the right chest and for pocket creation. A 15 blade scalpel was used to make an incision over the right chest. Cautery was used to dissect down to the pectoral fascia. A pocket was created with blunt dissection. The dilator sheath was then advanced over the wire under fluoroscopy and the dilator and wire were removed. The Groshong catheter was inserted through the sheath and the sheath was then removed. The Groshong wire was removed. The catheter was then tunneled to the right chest pocket. Fluoroscopy was used to cut to length and this was then attached to the port which was then placed within the pocket. The port was then accessed without difficulty. It was then flushed with saline and then heparin. The subcutaneous tissues were then reapproximated using 3-0 Vicryl. The areas were then washed and dried. Skin Affix was placed over incision. The insertion point of the neck Skin Affix was placed over the incision. The patient tolerated the procedure well without complication and was taken to recovery room in stable condition. Chest x-ray is pending. Anesthesia Type mac c local Estimated Blood Loss Estimated blood loss (mL): minimal Specimens/Packing Specimens Removed AIYANA Anand DO Oct 23, 2022 14:31
--- NOTE | 2022-10-23 14:41 | Discharge Inst-Simple/Standard ---
Discharge Inst-Standard Patient Instructions/Follow Up Plan of Care/Instructions/FU: 2 weeks Roma Need port flushes at least every 90 days. Activity as Tolerated: No Discharge Diet: Regular Diet Other Inst to Patient Follow up Appt: Make appointment for 2 week. Need port flushed every 90 days. Instructions: No lifting greater than 10 pounds. No strenuous activity. May shower in 24 hours, no tub bath or soaking. Use incentive spirometer at home as directed. No Smoking Skin/Wound Care: You have special glue over your incision that will fall off on it's own. Ice pack on 15 min and off 30 min and repeat for first 48 hours. This is to decrease swelling and discomfort. Symptoms to Report: Appetite Changes, Extremity Discoloration, Numbness/Tingling, Swelling Increased, Bleeding Excessive, Eyesight Changes, Pain Increased, Urine Color Change, Constipation(Persistent), Fever over 101 degree F, Pain/Pressure in chest, Urinating Difficulty, Cough Up/Vomit Blood, Heart Beat Irreg/Pounding, Pain/Pressure in jaw, Vaginal Bleeding Increase, Cramps in feet or legs, Lightheadedness, Pain/Pressure in shoulder, Diarrhea(Persistent), Memory Changes Suddenly, Questions/Concerns, Weight gain consecutive days, Dizziness/Fainting, Nausea/Vomiting, Shortness of Breath, Weight gain over 2 pounds If questions or concerns contact your physician Or seek help at emergency department. AIYANA CLINE DO Oct 23, 2022 14:41
--- NOTE | 2022-10-23 14:50 | Diagnostic Imaging Report ---
INDICATION: Status post Port-A-Cath placement. COMPARISON: 05/04/2022. FINDINGS: Single frontal radiographic view of the chest was obtained and demonstrates interval placement of right internal jugular Port-A-Cath with tip in the mid SVC. Lungs are clear. There is no focal consolidation, large effusion, nor pneumothorax. Cardiac silhouette and pulmonary vasculature are within normal limits. Osseous structures show no gross acute abnormalities. IMPRESSION: 1. New right internal jugular Port-A-Cath as above. 2. No other new acute cardiopulmonary process. Dictated by: Dictated on workstation # [id number]
--- NOTE | 2022-10-23 14:54 | Diagnostic Imaging Report ---
INDICATION: Port-A-Cath placement. COMPARISON: Chest radiograph dated 05/04/2022. TOTAL FLUOROSCOPY TIME: 40 seconds. TOTAL NUMBER OF FLUOROSCOPIC IMAGES SAVED: 1. FINDINGS: Intraoperative fluoroscopic guidance was provided during Port-A-Cath placement. Image provided shows right internal jugular approach. Central tip of the catheter terminates over the mid to upper SVC. Evaluation for pneumothorax is suboptimal given fluoroscopic modality. Please note, interpreting radiologist was not present during the procedure. IMPRESSION: 1. Fluoroscopic guidance provided intraoperatively as above. Dictated by: Dictated on workstation # [id number]
== END 2022-10-23 15:26 | disposition home or self-care (01) ==
LOC: SDC 10:23
PROVIDERS: ATTEND Surgery
DX: I87.2 Venous insufficiency (chronic) (peripheral) (principal)
CPT/HCPCS: 36561; 71045; 76000; 87081; C1788

== ENCOUNTER → 2022-11-12 | Outpatient (CLI) | payer MEDICARE, MEDICAID ==
[~2022-11-12] MED LIST changes: +HOLD METFORMIN - RECEIVED CONTRAST 20 ML VIAL IV SCH; +IOHEXOL 350 MG/ML 100 ML (OMNIPAQUE 350) VIAL IV ONE; +NS 100 ML (IVPB) BAG IV ONE
--- NOTE | 2022-11-12 11:46 | Diagnostic Imaging Report ---
PROCEDURE: CT angiography of the chest with contrast. TECHNIQUE: Multiple contiguous axial images were obtained through the chest after uneventful bolus administration of intravenous contrast. 3D reconstructed CTA MIP acquisitions were also performed. Auto Exposure Controls were utilized during the CT exam to meet ALARA standards for radiation dose reduction. INDICATION: Thoracic aortic aneurysm. Correlation is made with prior CT of the chest from 06/28/2019. A right chest wall port has the tip at the SVC right atrial junction. The aortic root measures approximately 3.0 cm in the coronal plane. The sinus of Valsalva is 4.3 cm. The sinotubular junction is 3.2 cm. The ascending thoracic aorta is 3.9 cm AP diameter. Aortic arch and descending thoracic aorta normal caliber. Central pulmonary arteries are unremarkable. There is no pericardial or pleural fluid identified. No pulmonary infiltrates, nodules or masses are seen. There is some linear atelectasis or scarring in the lingula. Upper abdomen is unremarkable. IMPRESSION: There is some mild dilatation of the proximal thoracic aorta, measurements above. No dissection is identified. Dictated by: Dictated on workstation # [id number]
== END ==
LOC: RAD 11:45
PROVIDERS: ATTEND Internal Medicine Cardiovascular Disease
DX: I71.20 Thoracic aortic aneurysm, without rupture, unspecified (principal)
CPT/HCPCS: 71275

== ENCOUNTER 2023-01-11 10:30 | Emergency (ER) | payer MEDICARE, MEDICAID ==
[~2023-01-11 10:30] MED LIST changes: -HOLD METFORMIN - RECEIVED CONTRAST 20 ML VIAL IV SCH; -IOHEXOL 350 MG/ML 100 ML (OMNIPAQUE 350) VIAL IV ONE; -NS 100 ML (IVPB) BAG IV ONE
--- NOTE | 2023-01-11 10:51 | ED Back Pain ---
General Chief Complaint: Back Problems Stated Complaint: BACK PAIN History of Present Illness Date Seen by Provider: January 11, 2023 Time Seen by Provider: 10:40 Initial Comments 62-year-old male with PMH of SZD which appears to be uncontrolled in spite of medication changes and dose increases/ surgery for cervical disc herniation in the / fall risk, is here with complaints of back pain along the entire length of the spine after he has had several seizures this past week resulting in falls on the ground triggering his back pain. Patient is concerned that he may have some spinal fractures and wants to make sure that it does not cause for his pain. Denies sensory loss, weakness, headache, dizziness, blurry vision, bowel or bladder dysfunction. Allergies and Home Medications Allergies Coded Allergies: bupropion (Verified Allergy, Severe, seizure, 10/22/22) acetaminophen (Verified Adverse Reaction, Severe, seizure, 10/23/22) escitalopram (Verified Adverse Reaction, Severe, seizure, 10/22/22) oxycodone (Verified Adverse Reaction, Severe, seizure, 10/22/22) tramadol (Verified Adverse Reaction, Severe, seizure, 10/22/22) Patient Home Medication List Home Medication List Reviewed: Yes Levetiracetam (Levetiracetam) 1,000 Mg Tablet, 1,000 MG PO DAILY, (Reported) Entered as Reported by: TYLER VILLASENOR on 10/22/22 0935 Levetiracetam (Levetiracetam) 1,000 Mg Tablet, 2,000 MG PO BID, (Reported) Entered as Reported by: TYLER VILLASENOR on 10/22/22 0935 Lorazepam (Ativan) 0.5 Mg Tablet, 0.5-1 MG PO HS, (Reported) Entered as Reported by: ASHKAN BERNAL on 03/25/22 1144 Lorazepam (Lorazepam) 2 Mg/Ml Oral.conc, 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, (Reported) Entered as Reported by: ASHKAN BERNAL on 03/25/22 1144 Melatonin (Melatonin) 10 Mg Tablet, 20 MG PO HS, (Reported) Entered as Reported by: ASHKAN BERNAL on 03/25/22 1144 Phenobarbital (Phenobarbital) 97.2 Mg Tablet, 194.4 MG PO HS, (Reported) Entered as Reported by: DAVID ALBARRAN on 10/20/18 1559 Review of Systems Constitutional: no symptoms reported EENTM: no symptoms reported Respiratory: no symptoms reported Cardiovascular: no symptoms reported Gastrointestinal: no symptoms reported Genitourinary: no symptoms reported Musculoskeletal: back pain Skin: no symptoms reported Psychiatric/Neurological: No Symptoms Reported Past Ljywmqo-Otspmo-Jpties Hx Patient Social History Tobacco Use?: No Use of E-Cig and/or Vaping dev: No Substance use?: No Alcohol Use?: No Pt feels they are or have been: No Seasonal Allergies Seasonal Allergies: No Past Medical History Surgery/Hospitalization HX: Seizures Surgeries: Yes Abdominal Respiratory: Yes ( influenza ) Pneumonia Cardiac: No Neurological: Yes (10/17/22 LAST THURSDAY (RECENTLY WEEKLY)) Seizure Disorder Genitourinary: No Gastrointestinal: Yes Hemorrhoids Musculoskeletal: Yes Degenerate Disk Disease, Arthritis Endocrine: No HEENT: No Cancer: No Psychosocial: No Integumentary: No Blood Disorders: No Family Medical History No Pertinent Family Hx Physical Exam Vital Signs Vital Signs - First Documented 01/11/23 10:30 Temp 36.1 Pulse 78 Resp 16 B/P (MAP) 102/58 (73) Pulse Ox 99 O2 Delivery Room Air Capillary Refill : Height, Weight, BMI Height: 6'10.00" Weight: 200lbs. oz. 90.948561ht; 30.08 BMI Method:Estimated General Appearance: No Apparent Distress, WD/WN HEENT: PERRL/EOMI Neck: Full Range of Motion, Normal Inspection, Non Tender, Supple, Other (Healed surgical scar on his anterior neck for his disc herniation surgery many years ago) Cardiovascular: Regular Rate, Rhythm, No Edema Respiratory: Lungs Clear Back: Normal Inspection, No CVA Tenderness, No Vertebral Tenderness, Muscle Spasm (Bilateral , thoracic, lumbar areas) Extremity: Normal Inspection, Normal Range of Motion, Non Tender Neurologic/Psychiatric: Alert, Oriented x3, No Motor/Sensory Deficits, Normal Mood/Affect, solar power installer II-XII Norm as Tested Skin: Normal Color Lymphatic: No Adenopathy Procedures/Interventions Suture Size: 4-0 Progress/Results/Core Measures Results/Orders My Orders Orders - JUDI PATTON MD Spine Entire 2-3 View (01/11/23 10:53) Ketorolac Injection (Toradol Injection) (01/11/23 12:15) Vital Signs/I&O 01/11/23 10:30 Temp 36.1 Pulse 78 Resp 16 B/P (MAP) 102/58 (73) Pulse Ox 99 O2 Delivery Room Air Progress Progress Note : Progress Note 1. BACK PAIN: PARASPINAL MUSCLE SPASM: - XR SPINE: no acute findings - Toradol im STAT - Advised pt to use [id number] Lidoderm patches for pain, and naproxen e very 12 hours as needed for pain. Advised patient to ensure he takes it with food. Also advised heat application and gentle massage and gentle stretching. -Follow-up with PCP within the next 1 week. -The patient was seen in the ED, and treated appropriately to presentation at a specific point in time. Patient is informed that there is a possibility that disease and illness can evolve and change in acuity rapidly or slowly after patient is discharged from the ER. Precautionary advice given to the patient for immediate return to ER if symptoms worsen or do not resolve, and to seek emergency care sooner rather than later. Pt also advised on the importance of PCP follow up and compliance with management and follow up plan with PCP and/or specialist, as this is part of the management plan. Pt verbally expressed understanding. Diagnostic Imaging Diagonstic Imaging: Xray Plain Films/CT/US/NM/MRI: c-spine, other Comments [facility] [place], [place] NAME: ANGEL LOVE [facility] REC#: [id number] PT STATUS: REG ER : 1960 PHYSICIAN: JUDI PATTON MD ADMIT DATE: 01/11/23/ER FS Draft Date of Exam:01/11/23 SPINE ENTIRE 2-3 VIEW INDICATION: Back pain. Frontal and lateral cervical, thoracic and lumbar spine films are performed. We have correlative CTs of the chest date 10/2022 and of the abdomen and pelvis performed 03/2022 those have reconstruction views and are used as comparison. A chronic hemangioma in the L4 vertebral body without its fracture as a stable finding. Lumbar statures are stable. The thoracic vertebral statures are unremarkable with mild anterior endplate osteophytes and degenerative disc space narrowing chronic. While no priors for comparison the cervical spine showed no acute appearing abnormality with degenerative disease narrowing the disc space most notably at C5-C6 as a chronic finding. IMPRESSION: No acute appearing abnormality identified at 2 view spinal radiographic series. Dictated on workstation # [id number] Dict: 01/11/23 1132 Trans: 01/11/23 1141 [facility] [id number] Interpreted by: AMBROSE WYATT Electronically signed by: Departure Impression Primary Impression: Paraspinal muscle spasm Disposition: HOME, SELF-CARE Condition: Stable Departure-Patient Inst. Referrals: DARVIN PASTRANA MD (PCP) Primary Care Physician Patient Instructions: MANAGING YOUR CHRONIC PAIN, Back Muscle Strain (DC), Usi ng Heat for Pain, Muscle Spasms (DC) Add. Discharge Instructions: - Advised pt to use [id number] Lidoderm patches for pain, and naproxen every 12 hours as needed for pain. Advised patient to ensure he takes it with food. Also advised heat application and gentle massage and gentle stretching. -Follow-up with PCP within the next 1 week. All discharge instructions reviewed with patient and/or family. Voiced understanding. JUDI PATTON MD January 11, 2023 10:51
--- NOTE | 2023-01-11 11:43 | Diagnostic Imaging Report ---
INDICATION: Back pain. Frontal and lateral cervical, thoracic and lumbar spine films are performed. We have correlative CTs of the chest date 10/2022 and of the abdomen and pelvis performed 03/2022 those have reconstruction views and are used as comparison. A chronic hemangioma in the L4 vertebral body without its fracture as a stable finding. Lumbar statures are stable. The thoracic vertebral statures are unremarkable with mild anterior endplate osteophytes and degenerative disc space narrowing chronic. While no priors for comparison the cervical spine showed no acute appearing abnormality with degenerative disease narrowing the disc space most notably at C5-C6 as a chronic finding. IMPRESSION: No acute appearing abnormality identified at 2 view spinal radiographic series. Dictated by: Dictated on workstation # [id number]
[2023-01-11] MEDS ORDERED: KETOROLAC 30 MG/ML VIAL IM ONE (12:15)
[2023-01-11 12:19] VITALS: BP 106/62
== END 2023-01-11 12:20 | disposition home or self-care (01) ==
LOC: EDUNIT# 10:30 → ER FS 10:31
DX: M62.830 Muscle spasm of back (principal); Z28.310 Unvaccinated for COVID-19; W18.30XA Fall on same level, unspecified, initial encounter
CPT/HCPCS: 72082

== ENCOUNTER 2023-01-13 15:23 | Emergency (ER) | payer MEDICARE, MEDICAID ==
[~2023-01-13] VITALS: Ht 177.8 cm; Wt 98.4 kg
[2023-01-13] MEDS ORDERED: LORazepam 0.5 MG (ATIVAN) TABLET PO STA (15:40)
[2023-01-13] MEDS ORDERED: NS IV 1000 ML 1,000 ML IV STA (15:40)
--- NOTE | 2023-01-13 15:45 | Diagnostic Imaging Report ---
CHEST 1 VIEW AP/PA ONLY Indication: Altered mental status Comparison: 10/23/2022 Findings: No focal airspace disease in the visualized lungs. No pleural effusion or pneumothorax. Normal cardiomediastinal silhouette. Stable right IJ Port-A-Cath. Impression: 1. No acute cardiopulmonary process by portable radiography. Dictated by: Dictated on workstation # [id number]
[2023-01-13 15:48] LABS: BASOPHILS % (AUTO) 0 % (0-10); EOSINOPHILS # (AUTO) 0.1 10^3/uL (0.0-0.3); EOSINOPHILS % (AUTO) 1 % (0-10); HEMATOCRIT 39 % (40-54); HEMOGLOBIN 13.2 g/dL (13.3-17.7); LYMPHOCYTES # (AUTO) 1.6 10^3/uL (1.0-4.0); LYMPHOCYTES % (AUTO) 28 % (12-44); MEAN CORPUSCULAR HEMOGLOBIN 31 pg (25-34); MEAN CORPUSCULAR HGB CONC 34 g/dL (32-36); MEAN CORPUSCULAR VOLUME 93 fL (80-99); MEAN PLATELET VOLUME 9.9 fL (9.0-12.2); MONOCYTES # (AUTO) 0.6 10^3/uL (0.0-1.0); MONOCYTES % (AUTO) 11 % (0-12); NEUTROPHILS # (AUTO) 3.3 10^3/uL (1.8-7.8); NEUTROPHILS % (AUTO) 59 % (42-75); PLATELET COUNT 271 10^3/uL (130-400); WHITE BLOOD COUNT 5.6 10^3/uL (4.3-11.0)
--- NOTE | 2023-01-13 15:51 | ED Neurological Problem ---
General Chief Complaint: Neurological Problems Stated Complaint: SEIZURES Source: patient, family, EMS, old records Exam Limitations: no limitations History of Present Illness Date Seen by Provider: January 13, 2023 Time Seen by Provider: 15:24 Initial Comments 62-year-old male with past medical history of seizure disorder coming in due to multiple seizures. He is on Keppra, lorazepam, phenobarbital, and topiramate daily. He has multiple seizures per day still, and had a few today. Per the , they are "petit mal" most of the time and his face will just tighten up and he will go unresponsive for a moment before he wakes back up. He has been more confused over the past couple days and has been falling more as well. He had a fall earlier in the week and had back pain, was seen in the ER, had negative imaging. Is otherwise denying any other acute complaints. Does not take any blood thinners. Allergies and Home Medications Allergies Coded Allergies: bupropion (Verified Allergy, Severe, seizure, 10/22/22) acetaminophen (Verified Adverse Reaction, Severe, seizure, 10/23/22) escitalopram (Verified Adverse Reaction, Severe, seizure, 10/22/22) oxycodone (Verified Adverse Reaction, Severe, seizure, 10/22/22) tramadol (Verified Adverse Reaction, Severe, seizure, 10/22/22) Patient Home Medication List Home Medication List Reviewed: Yes Levetiracetam (Levetiracetam) 1,000 Mg Tablet, 1,000 MG PO DAILY, (Reported) Entered as Reported by: TYLER VILLASENOR on 10/22/22 0935 Levetiracetam (Levetiracetam) 1,000 Mg Tablet, 2,000 MG PO BID, (Reported) Entered as Reported by: TYLER VILLASENOR on 10/22/22 0935 Lorazepam (Ativan) 0.5 Mg Tablet, 0.5-1 MG PO HS, (Reported) Entered as Reported by: ASHKAN BERNAL on 03/25/22 1144 Lorazepam (Lorazepam) 2 Mg/Ml Oral.conc, 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, (Reported) Entered as Reported by: ASHKAN BERNAL on 03/25/22 1144 Melatonin (Melatonin) 10 Mg Tablet, 20 MG PO HS, (Reported) Entered as Reported by: ASHKAN BERNAL on 03/25/22 1144 Phenobarbital (Phenobarbital) 97.2 Mg Tablet, 194.4 MG PO HS, (Reported) Entered as Reported by: DAVID ALBARRAN on 10/20/18 1551 Review of Systems Review of Systems Constitutional: No fever Eyes: No Symptoms Reported Ears, Nose, Mouth, Throat: no symptoms reported Respiratory: no symptoms reported Cardiovascular: no symptoms reported Gastrointestinal: no symptoms reported Genitourinary: no symptoms reported Musculoskeletal: see HPI Skin: no symptoms reported Psychiatric/Neurological: See HPI Past Vjtseyc-Zsnrjb-Doyqrs Hx Patient Social History Substance use?: No Seasonal Allergies Seasonal Allergies: No Past Medical History Surgery/Hospitalization HX: Seizures Surgeries: Yes Abdominal Respiratory: Yes ( influenza ) Pneumonia Cardiac: No Neurological: Yes (10/17/22 LAST THURSDAY (RECENTLY WEEKLY)) Seizure Disorder Genitourinary: No Gastrointestinal: Yes Hemorrhoids Musculoskeletal: Yes Degenerate Disk Disease, Arthritis Endocrine: No HEENT: No Cancer: No Psychosocial: No Integumentary: No Blood Disorders: No Family Medical History No Pertinent Family Hx Physical Exam Vital Signs Vital Signs - First Documented 01/13/23 15:28 Temp 36.8 Pulse 82 Resp 18 B/P (MAP) 118/66 (83) Pulse Ox 98 O2 Delivery Room Air Capillary Refill : Height, Weight, BMI Height: 6'10.00" Weight: 200lbs. oz. 90.594772zw; 30.08 BMI Method:Estimated General Appearance: WD/WN, no apparent distress HEENT: PERRL/EOMI, normal ENT inspection, pharynx normal Neck: non-tender, full range of motion, supple, normal inspection Respiratory: chest non-tender, lungs clear, normal breath sounds, no respiratory distress, no accessory muscle use Cardiovascular: regular rate, rhythm, no edema, no murmur Gastrointestinal: normal bowel sounds, non tender, soft; No distended, No guarding, No rebound Back: normal inspection, no CVA tenderness, no vertebral tenderness Extremities: normal range of motion, non-tender, normal inspection, no pedal edema, no calf tenderness, normal capillary refill Neurologic/Psychiatric: no motor/sensory deficits, alert, normal mood/affect, other (Slight droop on the left side of his face which his states he has been having with seizures, otherwise cranial nerves intact, oriented to person and place, not oriented to situation or date) Crainal Nerves: normal hearing, normal speech, PERRL Coordination/Gait: normal finger to nose, normal gait Motor/Sensory: no motor deficit, no sensory deficit, no pronator drift Skin: normal color, warm/dry Stroke Onset of Symptoms Date of Onset of Symptoms: January 12, 2023 Time of Symptom Onset: 21:00 Onset of Symptoms: Yes NIH Stroke Scale Assessment Select: Initial Level of Consciousness: 0=Alert (0), Level of Consciousness- Questions: 0=Answers both month/age (0), LOC Commands: 0=Performs both tasks (0), Gaze: Normal (0), Visual Talavera: 0=No visual loss (0), Facial Movement (Facial Paresis): 1=Minor paralysis (1), Motor Function-Arms Right: 0=No drift (0), Motor Function-Arms Left: 0=No drift (0), Motor Function-Legs Right: 0=No drift (0), Motor Function-Legs Left: 0=No drift (0), Limb Ataxia: 0=Absent (0), Sensory: 0=Normal:no loss (0), Best Language: 0=No aphasia (0), Dysarthria: 0=Normal (0), Extinction & Inattention: 0=No abnormality (0), Total: 1 Stroke Thrombolytic Exclusion Improving Symptoms: Yes TPA Contraindication: Yes (time limit reached) IV - TPa Received IV - TPa Procedure Performed?: No Procedures/Interventions Suture Size: 4-0 Progress/Results/Core Measures Results/Orders Lab Results Laboratory Tests Test 01/13/23 15:34 01/13/23 15:40 Range/Units Glucometer 134 H 70-110 MG/DL White Blood Count 5.6 4.3-11.0 10^3/uL Red Blood Count 4.23 L 4.30-5.52 10^6/uL Hemoglobin 13.2 L 13.3-17.7 g/dL Hematocrit 39 L 40-54 % Mean Corpuscular Volume 93 80-99 fL Mean Corpuscular Hemoglobin 31 25-34 pg Mean Corpuscular Hemoglobin Concent 34 32-36 g/dL Red Cell Distribution Width 13.5 10.0-14.5 % Platelet Count 271 130-400 10^3/uL Mean Platelet Volume 9.9 9.0-12.2 fL Immature Granulocyte % (Auto) 1 % Neutrophils (%) (Auto) 59 42-75 % Lymphocytes (%) (Auto) 28 12-44 % Monocytes (%) (Auto) 11 0-12 % Eosinophils (%) (Auto) 1 0-10 % Basophils (%) (Auto) 0 0-10 % Neutrophils # (Auto) 3.3 1.8-7.8 10^3/uL Lymphocytes # (Auto) 1.6 1.0-4.0 10^3/uL Monocytes # (Auto) 0.6 0.0-1.0 10^3/uL Eosinophils # (Auto) 0.1 0.0-0.3 10^3/uL Basophils # (Auto) 0.0 0.0-0.1 10^3/uL Immature Granulocyte # (Auto) 0.0 0.0-0.1 10^3/uL Prothrombin Time 14.3 12.2-14.7 SEC INR Comment 1.1 0.8-1.4 Activated Partial Thromboplast Time 32 24-35 SEC Sodium Level 142 135-145 MMOL/L Potassium Level 4.0 3.6-5.0 MMOL/L Chloride Level 113 H 98-107 MMOL/L Carbon Dioxide Level 21 21-32 MMOL/L Anion Gap 8 5-14 MMOL/L Blood Urea Nitrogen 9 7-18 MG/DL Creatinine 0.85 0.60-1.30 MG/DL Estimat Glomerular Filtration Rate 97 BUN/Creatinine Ratio 11 Glucose Level 147 H 70-105 MG/DL Calcium Level 8.7 8.5-10.1 MG/DL Corrected Calcium 8.9 8.5-10.1 MG/DL Magnesium Level 2.1 1.6-2.4 MG/DL Total Bilirubin 0.2 0.1-1.0 MG/DL Aspartate Amino Transf (AST/SGOT) 14 5-34 U/L Alanine Aminotransferase (ALT/SGPT) 11 0-55 U/L Alkaline Phosphatase 149 H 40-136 U/L Troponin I < 0.30 <0.30 NG/ML Total Protein 6.9 6.4-8.2 GM/DL Albumin 3.8 3.2-4.5 GM/DL Serum Alcohol < 10 <10 MG/DL My Orders Orders - ANGELO ANTONY MD Alcohol (01/13/23 15:29) Cbc With Automated Diff (01/13/23 15:29) Comprehensive Metabolic Panel (01/13/23 15:29) Magnesium (01/13/23 15:29) Protime With Inr (01/13/23 15:29) Partial Thromboplastin Time (01/13/23 15:29) Accucheck Stat ONCE (01/13/23 15:29) Troponin I Fs (01/13/23 15:29) Ct Head Wo-R/O Stroke (01/13/23 15:29) Chest 1 View Ap/Pa Only (01/13/23 15:29) Ed Iv/Invasive Line Start (01/13/23 15:29) Ekg Tracing (01/13/23:) Monitor-Rhythm Ecg Trace Only (01/13/23 15:29) Ct Angio Head/Neck (01/13/23 15:40) Levetiracetam Injection (Keppra Injectio (01/13/23 15:40) Lorazepam Tablet (Ativan Tablet) (01/13/23 15:40) Ns Iv 1000 Ml (Sodium Chloride 0.9%) (01/13/23 15:40) Iohexol Injection (Omnipaque 350 Mg/Ml 1 (01/13/23 16:00) Received Contrast (Hold Metformin- Contr (01/13/23 16:00) Ns (Ivpb) (Sodium Chloride 0.9% Ivpb Bag (01/13/23 16:00) Lorazepam Injection (Ativan Injection) (01/13/23 17:45) Medications Given in ED Current Medications Medications Dose Ordered Sig/Jm Route Start Time Stop Time Status Last Admin Dose Admin Iohexol 100 ml ONCE ONCE IV 01/13/23 16:00 01/13/23 16:01 DC 01/13/23 15:51 75 ML Lorazepam 1 mg ONCE ONCE IVP 01/13/23 17:45 01/13/23 17:46 DC 01/13/23 17:40 1 MG Sodium Chloride 100 ml ONCE ONCE IV 01/13/23 16:00 01/13/23 16:01 DC 01/13/23 15:51 100 ML Vital Signs/I&O 01/13/23 15:28 Temp 36.8 Pulse 82 Resp 18 B/P (MAP) 118/66 (83) Pulse Ox 98 O2 Delivery Room Air FSBG Bedside Testing Finger Stick Blood Glucose: 134 Progress Progress Note : Progress Note 62yoM with above history coming in due to seizures via EMS. The patient was confused and post-ictal on presentation. Physical exam with some left-sided eyelid droop which the states happens sometimes when he has a seizure. She states she has not been normal since 9 PM last night. NIH will be 1 because of this. He is not a candidate for tPA due to the timing being much more than 4 hours. Additionally, he had a witnessed event here by myself and afterwards was more postictal again. I suspect this is more related to seizures than true neurologic insult. CT head ordered and interpreted by me showing no obvious mass or bleed. CTA head and neck been obtained and was also negative for acute abnormalities. Chest x-ray clear. EKG with no acute ischemic changes on my interpretation. An IV was placed and basic labs were obtained including cardiac biomarkers. His white blood cell count is normal, normal creatinine, normal sodium, negative troponin, slightly elevated but appropriate glucose. He was given Keppra IV as well as oral Ativan. Also given a bolus of IV fluids. I personally discussed the case with the radiologist regarding his imaging. Unfortunately, the patient is not coming back to baseline and the is stating she is witnessing events when we are not in the room that are very rapid. I am concerned that he is having back to back seizures. The 1 eyewitness his face bunched up, eyes closed, and he was not responding for roughly 15 seconds. Afterwards he was more confused. Since he is not coming back to baseline and having [id number] events, he will need to be transferred to a facility that has neurology available. There is the decision to admit the patient, I went back into reevaluate him and his eyes were deviated slightly right and his face was twitching. IV Ativan ordered at that time. [facility] accepted the patient for transfer for further evaluation and management. Initial ECG Impression Date: January 13, 2023 Initial ECG Impression Time: 15:42 Initial ECG Rate: 89 Initial ECG Rhythm: Normal Sinus Comment Narrow QRS, normal axis, no significant ST changes or T wave abnormalities Diagnostic Imaging Diagonstic Imaging: Xray (chest), CT (CT head without, CTA head and neck) Comments NAME: ANGEL LOVE [facility] REC#: [id number] PT STATUS: REG ER : 1960 PHYSICIAN: ANGELO ANTONY MD ADMIT DATE: 01/13/23/ER FS Signed Date of Exam:01/13/23 CHEST 1 VIEW AP/PA ONLY CHEST 1 VIEW AP/PA ONLY Indication: Altered mental status Comparison: 10/23/2022 Findings: No focal airspace disease in the visualized lungs. No pleural effusion or pneumothorax. Normal cardiomediastinal silhouette. Stable right IJ Port-A-Cath. Impression: 1. No acute cardiopulmonary process by portable radiography. Dictated by: Dictated on workstation # [id number] Dict: 01/13/23 1543 Trans: 01/13/23 1544 [facility] Interpreted by: FRED SAHU MD Electronically signed by: FRED SAHU MD 01/13/23 1544 NAME: ANGEL LOVE [facility] REC#: [id number] PT STATUS: REG ER : 1960 PHYSICIAN: ANGELO ANTONY MD ADMIT DATE: 01/13/23/ER FS Signed Date of Exam:01/13/23 CT HEAD WO-R/O STROKE PROCEDURE: CT head wo r/o stroke. TECHNIQUE: Multiple contiguous axial images were obtained through the brain without the use of intravenous contrast. Auto Exposure Controls were utilized during the CT exam to meet ALARA standards for radiation dose reduction. INDICATION: Left-sided facial droop. COMPARISON: 03/24/2022. FINDINGS: No intracranial hyperdense hemorrhage or space-occupying mass. No hydrocephalus or midline shift. Truong-white matter differentiation is well-preserved. Mild disproportionate atrophy in the cerebellar hemispheres is again noted. No significant cerebral atrophy. Basilar cisterns are widely patent. No acute calvarial abnormality. Paranasal sinuses and mastoid air cells are clear. IMPRESSION: No acute intracranial process by CT. Dictated by: Dictated on workstation # [id number] Dict: 01/13/23 1608 Trans: 01/13/23 1620 [facility] Interpreted by: FRED SAHU MD Electronically signed by: FRED SAHU MD 01/13/23 1620 [facility] [place] NAME: ANGEL LOVE [facility] REC#: [id number] PT STATUS: REG ER : 1960 PHYSICIAN: ANGELO ANTONY MD ADMIT DATE: 01/13/23/ER FS Signed Date of Exam:01/13/23 CT ANGIO HEAD/NECK PROCEDURE: CT angiography of the head and CT angiography of the neck with and without contrast. TECHNIQUE: Contiguous noncontrast images were obtained from the skull base through the vertex. After intravenous contrast administration, helical CT angiography of the neck was performed. Source data was reformatted into 3D MIP projections. Delayed post contrast acquisition was also obtained. Auto Exposure Controls were utilized during the CT exam to meet ALARA standards for radiation dose reduction. INDICATION: Left facial droop, altered mental status. COMPARISON: CT head performed concurrently. FINDINGS: CTA NECK: Aorta: Aortic arch is normal, with standard three vessel branching pattern. Anterior Circulation: The origin of the bilateral common carotid arteries are patent. No stenosis of the common carotid arteries in the neck. No significant stenosis of the internal carotid arteries per NASCET criteria. The cervical segments of the bilateral ICAs are patent. The proximal external carotid arteries are patent and without significant stenosis. Posterior Circulation: Origins of the bilateral vertebral arteries are normal. Left vertebral artery is dominant but both vertebral arteries opacify throughout the neck. The proximal extraousseous, intrasosseous, and distal extraosseous segments of the vertebral arteries are patent without dissection or stenosis. Non-vascular: No cervical lymphadenopathy. The airway is patent. No evidence of mucosal-based mass lesion in the pharynx. Thyroid is normal. Salivary glands are normal. No concerning lesion in the cervical spine. CTA HEAD: Anterior Circulation: The distal internal carotid arteries are patent. The bilateral M1 and M2 segments of the middle cerebral arteries are patent and without stenosis. The bilateral M3 and M4 segments are symmetric in size and number. The anterior cerebral arteries are patent and without stenosis. Anterior communicating artery is patent. No saccular aneurysm in the anterior circulation. Posterior Circulation: The bilateral intracranial segments of the vertebral arteries are patent. The basilar artery is patent and without stenosis. origin of left ERADICATOR. Right ERADICATOR has a conventional origin. There is no stenosis of posterior cerebral arteries on either side. Bilateral posterior communicating arteries are patent and without aneurysm. No saccular aneurysm in the posterior circulation. Dural venous sinuses are patent. IMPRESSION: 1. No intracranial large vessel occlusion or saccular aneurysm. 2. No arterial occlusion or stenosis in the major neck arteries. 3. Patent dural venous sinuses. Dictated by: Dictated on workstation # [id number] Dict: 01/13/23 1610 Trans: 01/13/23 1616 [facility] [id number] Interpreted by: FRED SAHU MD Electronically signed by: FRED SAHU MD 01/13/231615 Departure Impression Primary Impression: Recurrent seizures Additional Impression: AMS (altered mental status) Qualified Codes: R41.0 - Disorientation, unspecified Disposition: 02 XFER S[facility]-TRM HOSP Condition: Stable Admissions Decision to Admit/Date: January 13, 2023 Time/Decision to Admit Time: 16:26 Transfer Transfer Reason: Exceeds level of care (needs neuro and likely continous EEG) Transfer Progress Notes Contacted [facility] at 16:26- they are at capacity [facility] at 16:27- no onsite neurologist available [facility] 16:58- at capacity [facility] access 17:00- all facilities are at capacity [facility] at 17:03- will put patient on wait list but likely will not be able to take him [facility] at 17:06- following up with their neurologist. They called back at 17:30 f or more information. [facility] accepted at 17:[address] Hammonds Discussed mode of transport that would be most appropriate for the patient. The is unwilling to authorize a flight at this time. Transfer Facility: [facility] Method of Transfer: EMS Departure-Patient Inst. Referrals: DARVIN PASTRANA MD (PCP/Family) Primary Care Physician ANGELO ANTONY MD January 13, 2023 15:51
[2023-01-13] MEDS ORDERED: HOLD METFORMIN - RECEIVED CONTRAST 20 ML VIAL IV SCH (16:00)
[2023-01-13] MEDS ORDERED: NS 100 ML (IVPB) BAG IV ONE (16:00)
[2023-01-13] MEDS ORDERED: IOHEXOL 350 MG/ML 100 ML (OMNIPAQUE 350) VIAL IV ONE (16:00)
[2023-01-13 16:05] LABS: INR 1.1 (0.8-1.4); PROTHROMBIN TIME PATIENT 14.3 SEC (12.2-14.7)
[2023-01-13 16:13] LABS: SODIUM 142 MMOL/L (135-145)
[2023-01-13 16:14] LABS: ALANINE AMINOTRANSFERASE 11 U/L (0-55); ALKALINE PHOSPHATASE 149 U/L (40-136); BILIRUBIN,TOTAL 0.2 MG/DL (0.1-1.0); BUN/CREATININE RATIO 11; CALCIUM 8.7 MG/DL (8.5-10.1); CARBON DIOXIDE 21 MMOL/L (21-32); CHLORIDE 113 MMOL/L (98-107); CREATININE SERUM 0.85 MG/DL (0.60-1.30); GFR ESTIMATED 97; GLUCOSE 147 MG/DL (70-105); MAGNESIUM 2.1 MG/DL (1.6-2.4); TOTAL PROTEIN 6.9 GM/DL (6.4-8.2)
--- NOTE | 2023-01-13 16:14 | Diagnostic Imaging Report ---
PROCEDURE: CT head wo r/o stroke. TECHNIQUE: Multiple contiguous axial images were obtained through the brain without the use of intravenous contrast. Auto Exposure Controls were utilized during the CT exam to meet ALARA standards for radiation dose reduction. INDICATION: Left-sided facial droop. COMPARISON: 03/24/2022. FINDINGS: No intracranial hyperdense hemorrhage or space-occupying mass. No hydrocephalus or midline shift. Truong-white matter differentiation is well-preserved. Mild disproportionate atrophy in the cerebellar hemispheres is again noted. No significant cerebral atrophy. Basilar cisterns are widely patent. No acute calvarial abnormality. Paranasal sinuses and mastoid air cells are clear. IMPRESSION: No acute intracranial process by CT. Dictated by: Dictated on workstation # [id number]
[2023-01-13 16:15] LABS: ALBUMIN 3.8 GM/DL (3.2-4.5)
--- NOTE | 2023-01-13 16:18 | Diagnostic Imaging Report ---
PROCEDURE: CT angiography of the head and CT angiography of the neck with and without contrast. TECHNIQUE: Contiguous noncontrast images were obtained from the skull base through the vertex. After intravenous contrast administration, helical CT angiography of the neck was performed. Source data was reformatted into 3D MIP projections. Delayed post contrast acquisition was also obtained. Auto Exposure Controls were utilized during the CT exam to meet ALARA standards for radiation dose reduction. INDICATION: Left facial droop, altered mental status. COMPARISON: CT head performed concurrently. FINDINGS: CTA NECK: Aorta: Aortic arch is normal, with standard three vessel branching pattern. Anterior Circulation: The origin of the bilateral common carotid arteries are patent. No stenosis of the common carotid arteries in the neck. No significant stenosis of the internal carotid arteries per NASCET criteria. The cervical segments of the bilateral ICAs are patent. The proximal external carotid arteries are patent and without significant stenosis. Posterior Circulation: Origins of the bilateral vertebral arteries are normal. Left vertebral artery is dominant but both vertebral arteries opacify throughout the neck. The proximal extraousseous, intrasosseous, and distal extraosseous segments of the vertebral arteries are patent without dissection or stenosis. Non-vascular: No cervical lymphadenopathy. The airway is patent. No evidence of mucosal-based mass lesion in the pharynx. Thyroid is normal. Salivary glands are normal. No concerning lesion in the cervical spine. CTA HEAD: Anterior Circulation: The distal internal carotid arteries are patent. The bilateral M1 and M2 segments of the middle cerebral arteries are patent and without stenosis. The bilateral M3 and M4 segments are symmetric in size and number. The anterior cerebral arteries are patent and without stenosis. Anterior communicating artery is patent. No saccular aneurysm in the anterior circulation. Posterior Circulation: The bilateral intracranial segments of the vertebral arteries are patent. The basilar artery is patent and without stenosis. origin of left [employer]SM[employer]ION [employer]IST. Right [employer]SM[employer] SPECIALIST has a conventional origin. There is no stenosis of posterior cerebral arteries on either side. Bilateral posterior communicating arteries are patent and without aneurysm. No saccular aneurysm in the posterior circulation. Dural venous sinuses are patent. IMPRESSION: 1. No intracranial large vessel occlusion or saccular aneurysm. 2. No arterial occlusion or stenosis in the major neck arteries. 3. Patent dural venous sinuses. Dictated by: Dictated on workstation # [id number]
[2023-01-13] MEDS ORDERED: MIDAZOLAM 2 MG/2 ML (VERSED) VIAL IVP ONE (17:45)
[2023-01-13] MEDS ORDERED: LORazepam INJ 2 MG/ML (ATIVAN) VIAL IVP ONE (17:45)
[2023-01-13 18:28] VITALS: BP 116/81
== END 2023-01-13 20:13 | disposition short-term general hospital (02) ==
LOC: EDUNIT# 15:23 → ER FS 15:24
DX: G40.802 Other epilepsy, not intractable, without status epilepticus (principal); R41.82 Altered mental status, unspecified; H02.402 Unspecified ptosis of left eyelid; Z79.899 Other long term (current) drug therapy; Z28.310 Unvaccinated for COVID-19
CPT/HCPCS: 36415; 70450; 70496; 70498; 71045; 80053; 82947; 83735; 84484; 85025; 85610; 85730; 93041; 99291; G0480; 80320; 93005; Q9967

== ENCOUNTER 2023-07-18 10:23 | Emergency (ER) | payer MEDICARE, MEDICAID ==
[~2023-07-18] VITALS: Ht 170 cm; Wt 96.0 kg
[2023-07-18] MEDS ORDERED: NS IV 1000 ML 1,000 ML IV STA (10:32)
[2023-07-18 10:38] LABS: BASOPHILS % (AUTO) 0 % (0-10); EOSINOPHILS # (AUTO) 0.2 10^3/uL (0.0-0.3); EOSINOPHILS % (AUTO) 2 % (0-10); HEMATOCRIT 40 % (40-54); HEMOGLOBIN 13.2 g/dL (13.3-17.7); LYMPHOCYTES # (AUTO) 2.2 10^3/uL (1.0-4.0); LYMPHOCYTES % (AUTO) 22 % (12-44); MEAN CORPUSCULAR HEMOGLOBIN 32 pg (25-34); MEAN CORPUSCULAR HGB CONC 33 g/dL (32-36); MEAN CORPUSCULAR VOLUME 97 fL (80-99); MEAN PLATELET VOLUME 10.2 fL (9.0-12.2); MONOCYTES # (AUTO) 1.5 10^3/uL (0.0-1.0); MONOCYTES % (AUTO) 15 % (0-12); NEUTROPHILS # (AUTO) 5.9 10^3/uL (1.8-7.8); NEUTROPHILS % (AUTO) 60 % (42-75); PLATELET COUNT 306 10^3/uL (130-400); WHITE BLOOD COUNT 9.8 10^3/uL (4.3-11.0)
--- NOTE | 2023-07-18 10:40 | ED General ---
General Chief Complaint: Neurological Problems Stated Complaint: SEIZURES Nursing Triage Note: ARRIVED VIA EMS FROM HOME WITH AN INCREASE IN SEIZURE ACTIVITY SINCE LAST NIGHT. WAS SEEN AT URGENT CARE YESTERDAY ET DX WITH A VIRUS. PT HIT HIS HEAD ON THE CONCRETE WITH THE LATEST SEIZURE. Source of Information: Patient, EMS, Old Records History of Present Illness Date Seen by Provider: Jul 18, 2023 Time Seen by Provider: 10:23 Initial Comments 63 yo male presenting with complaint of recurrent seizures. He has longstanding history of recurrent seizures despite multiple medicines for seizures. He was seen at urgent care yesterday and diagnosed with a viral illness. Overnight he had several episodes of his [place] type seizures where he stares off and is not responding for a while. At 1 point he had rolled out of bed and hit his head. He has abrasion to the left forehead and nose. There is no active bleeding. He was initially postictal for EMS but on arrival to the ED he is awake, alert, answering questions. He does take Keppra, Depakote, phenobarbital. He also has Ativan as a benzodiazepine to try and help with preventing seizures. He denies having fevers, chills, abdominal pain, nausea, vomiting, pain with urination. He has a port on the right side of his chest for access because of poor peripheral vein access for IV starts. Timing/Duration: 12-24 Hours Associated Systoms: No Chest Pain, No Cough, No Diaphoresis, No Fever/Chills; Headaches; No Loss of Appetite, No Malaise, No Nausea/Vomiting, No Rash; Seizure; No Shortness of Air, No Syncope, No Weakness Allergies and Home Medications Allergies Coded Allergies: bupropion (Verified Allergy, Severe, seizure, 10/22/22) acetaminophen (Verified Adverse Reaction, Severe, seizure, 10/23/22) escitalopram (Verified Adverse Reaction, Severe, seizure, 10/22/22) oxycodone (Verified Adverse Reaction, Severe, seizure, 10/22/22) tramadol (Verified Adverse Reaction, Severe, seizure, 10/22/22) Patient Home Medication List Home Medication List Reviewed: Yes Levetiracetam (Levetiracetam) 1,000 Mg Tablet, 1,000 MG PO DAILY, (Reported) Entered as Reported by: TYLER VILLASENOR on 10/22/22 0935 Levetiracetam (Levetiracetam) 1,000 Mg Tablet, 2,000 MG PO BID, (Reported) Entered as Reported by: TYLER VILLASENOR on 10/22/22 0935 Lorazepam (Ativan) 0.5 Mg Tablet, 0.5-1 MG PO HS, (Reported) Entered as Reported by: ASHKAN BERNAL on 03/25/22 1144 Lorazepam (Lorazepam) 2 Mg/Ml Oral.conc, 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, (Reported) Entered as Reported by: ASHKAN BERNAL on 03/25/22 1144 Melatonin (Melatonin) 10 Mg Tablet, 20 MG PO HS, (Reported) Entered as Reported by: ASHKAN BERNAL on 03/25/22 1144 Phenobarbital (Phenobarbital) 97.2 Mg Tablet, 194.4 MG PO HS, (Reported) Entered as Reported by: DAVID ALBARRAN on 10/20/18 1551 Review of Systems Review of Systems Constitutional: No chills, No fever EENTM: see HPI, other (abrasion to left side of forehead and nose with contusion); No ear discharge, No blurred vision, No vision loss, No epistaxis, No nose congestion Respiratory: no symptoms reported Cardiovascular: no symptoms reported Gastrointestinal: diarrhea; No nausea, No vomiting Genitourinary: No dysuria Musculoskeletal: no symptoms reported Skin: see HPI Psychiatric/Neurological: See HPI Past Nbgmdhd-Lzltyq-Mdoclg Hx Patient Social History Tobacco Use?: No Substance use?: No Alcohol Use?: No Seasonal Allergies Seasonal Allergies: No Past Medical History Surgery/Hospitalization HX: Seizures Surgeries: Yes Abdominal Respiratory: Yes ( influenza ) Pneumonia Cardiac: No Neurological: Yes (10/17/22 LAST THURSDAY (RECENTLY WEEKLY)) Seizure Disorder Genitourinary: No Gastrointestinal: Yes Hemorrhoids Musculoskeletal: Yes Degenerate Disk Disease, Arthritis Endocrine: No HEENT: No Cancer: No Psychosocial: No Integumentary: No Blood Disorders: No Family Medical History No Pertinent Family Hx Physical Exam Vital Signs Vital Signs - First Documented 07/18/23 10:24 Temp 36.0 Pulse 91 Resp 16 B/P (MAP) 116/67 (83) Pulse Ox 97 O2 Delivery Room Air Capillary Refill : Less Than 3 Seconds Height, Weight, BMI Height: 6'10.00" Weight: 200lbs. oz. [id number]; 33.00 BMI Method:Estimated General Appearance: No Apparent Distress, WD/WN HEENT: PERRL/EOMI, TMs Normal, Pharynx Normal, Moist Mucous Membranes; No Photophobia; Other (Negative Jones sign, negative raccoon sign, no CSF otorrhea, no CSF rhinorrhea, no hemotympanums) Neck: Full Range of Motion, Normal Inspection, Non Tender, Supple Respiratory: Chest Non Tender, Lungs Clear, Normal Breath Sounds, No Accessory Muscle Use, No Respiratory Distress Cardiovascular: Regular Rate, Rhythm, Normal Peripheral Pulses Gastrointestinal: Normal Bowel Sounds, No Pulsatile Mass, Non Tender, Soft Rectal: Deferred Extremity: Normal Capillary Refill, Normal Inspection, No Pedal Edema Neurologic/Psychiatric: Alert, Oriented x3, No Motor/Sensory Deficits, Normal Mood/Affect, contact worker II-XII Norm as Tested Skin: Warm/Dry; No Ecchymosis; Erythema (Superficial abrasions to the left forehead and nose with contusion) Procedures/Interventions Suture Size: 4-0 Progress/Results/Core Measures Suspected Sepsis SIRS Temperature: Pulse: 91 Respiratory Rate: 16 Laboratory Tests 07/18/23 10:28: White Blood Count 9.8 Blood Pressure 116 /67 Mean: 83 Laboratory Tests 07/18/23 10:28: Creatinine 0.77, Platelet Count 306, Total Bilirubin 0.3 Results/Orders Lab Results Laboratory Tests Test 07/18/23 10:28 Range/Units White Blood Count 9.8 4.3-11.0 10^3/uL Red Blood Count 4.08 L 4.30-5.52 10^6/uL Hemoglobin 13.2 L 13.3-17.7 g/dL Hematocrit 40 40-54 % Mean Corpuscular Volume 97 80-99 fL Mean Corpuscular Hemoglobin 32 25-34 pg Mean Corpuscular Hemoglobin Concent 33 32-36 g/dL Red Cell Distribution Width 13.8 10.0-14.5 % Platelet Count 306 130-400 10^3/uL Mean Platelet Volume 10.2 9.0-12.2 fL Immature Granulocyte % (Auto) 1 % Neutrophils (%) (Auto) 60 42-75 % Lymphocytes (%) (Auto) 22 12-44 % Monocytes (%) (Auto) 15 H 0-12 % Eosinophils (%) (Auto) 2 0-10 % Basophils (%) (Auto) 0 0-10 % Neutrophils # (Auto) 5.9 1.8-7.8 10^3/uL Lymphocytes # (Auto) 2.2 1.0-4.0 10^3/uL Monocytes # (Auto) 1.5 H 0.0-1.0 10^3/uL Eosinophils # (Auto) 0.2 0.0-0.3 10^3/uL Basophils # (Auto) 0.0 0.0-0.1 10^3/uL Immature Granulocyte # (Auto) 0.1 0.0-0.1 10^3/uL Sodium Level 139 135-145 MMOL/L Potassium Level 3.4 L 3.6-5.0 MMOL/L Chloride Level 106 98-107 MMOL/L Carbon Dioxide Level 24 21-32 MMOL/L Anion Gap 9 5-14 MMOL/L Blood Urea Nitrogen 10 7-18 MG/DL Creatinine 0.77 0.60-1.30 MG/DL Estimat Glomerular Filtration Rate 99 BUN/Creatinine Ratio 13 Glucose Level 101 70-105 MG/DL Calcium Level 7.9 L 8.5-10.1 MG/DL Corrected Calcium 8.5 8.5-10.1 MG/DL Total Bilirubin 0.3 0.1-1.0 MG/DL Aspartate Amino Transf (AST/SGOT) 24 5-34 U/L Alanine Aminotransferase (ALT/SGPT) 35 0-55 U/L Alkaline Phosphatase 81 40-136 U/L Total Protein 6.4 6.4-8.2 GM/DL Albumin 3.3 3.2-4.5 GM/DL Serum Alcohol < 10 <10 MG/DL My Orders Orders - YARITZA ANGEL MD Ua Culture If Indicated (07/18/23 10:31) Cbc And Automated Diff (07/18/23 10:31) Comprehensive Metabolic Panel (07/18/23 10:31) Alcohol (07/18/23 10:31) Drug Screen Stat (Urine) (07/18/23 10:31) Implanted Port: Access (07/18/23 10:31) Ct Head/Maxillofacial Wo (07/18/23 10:31) Ns Iv 1000 Ml (Ns Iv 1000 Ml) (11/25/23 10:32) Vital Signs/I&O 07/18/23 10:24 Temp 36.0 Pulse 91 Resp 16 B/P (MAP) 116/67 (83) Pulse Ox 97 O2 Delivery Room Air Capillary Refill : Less Than 3 Seconds Blood Pressure Mean: 83 Progress Note #1: Progress Note Differential diagnosis includes breakthrough seizures, electrolyte imbalance, facial contusion, intracranial hemorrhage, infection, alcohol use, drug use. Access implanted port and send labs for complete blood count, comprehensive metabolic profile, alcohol level, urinalysis, urine drug screen. CT scan of the head and face to evaluate for possible intracranial process or facial fractures. Administer normal saline 1 L IV fluid bolus for hydration. Progress Note #2: Time: 10:52 Progress Note On my personal review and interpretation of his CT head and face without contrast I do not appreciate any acute fracture or intracranial hemorrhage or mass. Complete blood count shows a white blood cell count of 9.8 and a low normal hemoglobin of 13.2. Progress Note #3: Time: 11:05 Progress Note Comprehensive metabolic profile did not show any acute electrolyte abnormalities significant enough to account for breakthrough seizures. He had borderline low potassium at 3.4. His alcohol level was less than 10. Radiology did read out the CT of the head and face as no acute process and no fractures or intracranial hemorrhage. Patient's advised that he has been having diarrhea and that was what prompted him to go to urgent care yesterday. He was given a liter of normal saline here for hydration in the emergency department. Encouraged to continue with his medications and trying to stay well-hydrated get plenty rest. Follow-up with his primary care or neurology for continued concerns. His reports that he has been having increased generalized weakness as well recently and is in the process of seeing a processing specialist at [facility] in [place] to work this up further. He is scheduled to have an MRI in July to further evaluate this. Diagnostic Imaging Diagonstic Imaging: CT Plain Films/CT/US/NM/MRI: facial bones, head Comments NAME: ANGEL LOVE [facility] REC#: [id number] PT STATUS: REG ER : 1960 PHYSICIAN: YARITZA ANGEL MD ADMIT DATE: 07/18/23/ER FS Draft Date of Exam:11/25/23 CT HEAD/MAXILLOFACIAL WO PROCEDURE: CT head and maxillofacial without contrast. TECHNIQUE: Multiple contiguous axial images were obtained through the head and facial bones without the use of intravenous contrast. Auto Exposure Controls were utilized during the CT exam to meet ALARA standards for radiation dose reduction. INDICATION: Follow-up seizure, head injury with pain after striking left forehead and nose on floor with seizure. COMPARISON: Head CT 01/13/2023. DISCUSSION: Volume loss within the posterior fossa is again noted, chronic. No acute intracranial hemorrhage, mass, midline shift, or hydrocephalus. Mild mucosal thickening noted within the sinuses. No air-fluid level. The mastoid air cells are well-aerated. The orbits and calvarium are unremarkable. No nasal bone fracture identified. Mild rightward nasal septal deviation. Temporomandibular joints are normally located. No facial fracture identified. Multiple missing teeth. IMPRESSION: 1. No acute intracranial abnormality identified. No acute osseous abnormality or facial injury. Dictated on workstation # [id number] Dict: 07/18/23 1057 Trans: 07/18/23 1100 [facility] [id number] Interpreted by: CHELA LEE MD Electronically signed by: Reviewed: Reviewed by Me Departure Impression Primary Impression: Contusion of face Qualified Codes: S00.83XA - Contusion of other part of head, initial encounter Additional Impressions: Abrasion, face without infection Recurrent seizures Disposition: 01 HOME, SELF-CARE Condition: Stable Departure-Patient Inst. Decision time for Depature: 11:12 Referrals: DARVIN PASTRANA MD (PCP/Family) Primary Care Physician Patient Instructions: Seizures, Adult ED, Minor Head Injury, Adult ED, Minor Contusion ED, Abrasions ED Add. Discharge Instructions: Continue taking your antiseizure medications. Follow-up with your regular provider and neurology for continued concerns. Make sure to stay well-hydrated and try to get plenty of sleep. When you are fighting an infection, such as the viral infection you were diagnosed with yesterday, it does make it easier for you to have breakthrough seizures. All discharge instructions reviewed with patient and/or family. Voiced understanding. YARITZA ANGEL MD Jul 18, 2023 10:40
[2023-07-18 10:55] LABS: BILIRUBIN,TOTAL 0.3 MG/DL (0.1-1.0); CALCIUM 7.9 MG/DL (8.5-10.1); CARBON DIOXIDE 24 MMOL/L (21-32); CHLORIDE 106 MMOL/L (98-107); POTASSIUM 3.4 MMOL/L (3.6-5.0); SODIUM 139 MMOL/L (135-145); TOTAL PROTEIN 6.4 GM/DL (6.4-8.2)
[2023-07-18 11:00] LABS: ALANINE AMINOTRANSFERASE 35 U/L (0-55); ALBUMIN 3.3 GM/DL (3.2-4.5); ALKALINE PHOSPHATASE 81 U/L (40-136); BUN/CREATININE RATIO 13; CREATININE SERUM 0.77 MG/DL (0.60-1.30); GFR ESTIMATED 99; GLUCOSE 101 MG/DL (70-105)
--- NOTE | 2023-07-18 11:01 | Diagnostic Imaging Report ---
PROCEDURE: CT head and maxillofacial without contrast. TECHNIQUE: Multiple contiguous axial images were obtained through the head and facial bones without the use of intravenous contrast. Auto Exposure Controls were utilized during the CT exam to meet ALARA standards for radiation dose reduction. INDICATION: Follow-up seizure, head injury with pain after striking left forehead and nose on floor with seizure. COMPARISON: Head CT 01/13/2023. DISCUSSION: Volume loss within the posterior fossa is again noted, chronic. No acute intracranial hemorrhage, mass, midline shift, or hydrocephalus. Mild mucosal thickening noted within the sinuses. No air-fluid level. The mastoid air cells are well-aerated. The orbits and calvarium are unremarkable. No nasal bone fracture identified. Mild rightward nasal septal deviation. Temporomandibular joints are normally located. No facial fracture identified. Multiple missing teeth. IMPRESSION: 1. No acute intracranial abnormality identified. No acute osseous abnormality or facial injury. Dictated by: Dictated on workstation # [id number]
[2023-07-18] MEDS ORDERED: HEParin (CENTRAL IV FLUSH) 500 UNIT/5 ML SYR IV STA (11:32)
[2023-07-18 12:14] VITALS: BP 112/61
== END 2023-07-18 12:14 | disposition home or self-care (01) ==
LOC: ER FS 10:23 → EDUNIT# 10:23 → ER FS 12:14
DX: S00.83XA Contusion of other part of head, initial encounter (principal); S00.33XA Contusion of nose, initial encounter; G40.A09 Absence epileptic syndrome, not intractable, without status epilepticus; W22.8XXA Striking against or struck by other objects, initial encounter
CPT/HCPCS: 36415; 70450; 70486; 80053; 85025; 99284; G0480; 80320